=== PATIENT | male | born 1950 | race Caucasian/White ===

== ENCOUNTER → 2017-05-19 | Outpatient (CLI) | payer OTHER ==
--- NOTE | 2017-05-19 17:06 | REP ---
Chest two views HISTORY: Heart failure Comparison: None The lungs are clear. The heart is normal in size. The pulmonary vasculature is normal in appearance. The bony structure is intact. IMPRESSION: No acute disease. Signed by Jeremy Díaz MD 05/19/2017 04:58 P
== END ==
LOC: M LAB 16:15
PROVIDERS: ATTEND Internal Medicine Cardiovascular Disease
DX: I50.9 Heart failure, unspecified (principal); R06.02 Shortness of breath

== ENCOUNTER → 2017-06-02 | Outpatient (CLI) | payer OTHER ==
[2017-06-02 09:34] LABS: ALBUMIN 3.8 GM/DL (3.2-5.2); ANION GAP 11 MEQ/L (8-16); BLOOD UREA NITROGEN 18 MG/DL (7-18); CALCIUM LEVEL 9.5 MG/DL (8.8-10.2); CARBON DIOXIDE LEVEL 29 MEQ/L (21-32); CHLORIDE LEVEL 102 MEQ/L (98-107); CREATININE FOR GFR 1.12 MG/DL (0.70-1.30); GLOMERULAR FILTRATION RATE > 60.0 (>49); GLUCOSE, FASTING 109 MG/DL (80-110); MAGNESIUM LEVEL 2.2 MG/DL (1.8-2.4); PHOSPHORUS LEVEL 2.3 MG/DL (2.5-4.9); SODIUM LEVEL 142 MEQ/L (136-145)
== END ==
LOC: M LAB 08:06
PROVIDERS: ATTEND Internal Medicine Cardiovascular Disease
DX: I50.9 Heart failure, unspecified (principal)

== ENCOUNTER → 2017-06-15 | Outpatient (CLI) | payer OTHER ==
[2017-06-15 13:09] LABS: ALBUMIN 3.8 GM/DL (3.2-5.2); ANION GAP 7 MEQ/L (8-16); BLOOD UREA NITROGEN 21 MG/DL (7-18); CALCIUM LEVEL 9.4 MG/DL (8.8-10.2); CARBON DIOXIDE LEVEL 32 MEQ/L (21-32); CHLORIDE LEVEL 103 MEQ/L (98-107); CREATININE FOR GFR 1.27 MG/DL (0.70-1.30); GLOMERULAR FILTRATION RATE > 60.0 (>49); GLUCOSE, FASTING 98 MG/DL (80-110); PHOSPHORUS LEVEL 2.4 MG/DL (2.5-4.9); POTASSIUM SERUM 4.4 MEQ/L (3.5-5.1); SODIUM LEVEL 142 MEQ/L (136-145)
== END ==
LOC: M LAB 11:58
PROVIDERS: ATTEND Internal Medicine Cardiovascular Disease
DX: I11.9 Hypertensive heart disease without heart failure (principal)

== ENCOUNTER → 2017-10-06 | Outpatient (CLI) | payer OTHER ==
--- NOTE | 2017-10-09 15:16 | SLEEPCENT ---
DATE OF PROCEDURE: 10/06/2017 REFERRING PHYSICIAN: Joy Grimes Nocturnal polysomnography was performed for evaluation of sleep physiology in this patient with a history of excessive somnolence and abnormal nocturnal oximetry. 7 hours and 34 minutes of data were reviewed. There were 175 minutes of sleep identified. Sleep latency was prolonged at 52 minutes. Rapid eye movement (REM) latency was prolonged at 196 minutes. Sleep architecture did improve late in the study, but there were only two REM cycles with prolonged periods of wakefulness resulting in reduced sleep efficiency of 39.1%. The patient's electrocardiogram showed a baseline supraventricular rhythm with an average heart rate of 64 beats per minute. Rate ranged 60 to 80 beats per minute. EEG showed fairly normal waveforms for awake and sleep. There were 161 respiratory events identified of 10 seconds in duration or greater for an apnea/hypopnea index of 55. Having clearly established the presence of sleep apnea syndrome early in the test, the study was stopped shortly before midnight for the application of pressure therapy. The patient was fit with a ResMed Quattro full face mask of medium size. 4 cm of water pressure were applied to the circuit and the lights were extinguished. Throughout the remaining hours of testing, pressure titration was attempted. The patient had difficulty in tolerating the mask. Persistence of desaturations resulted in addition to supplemental oxygen and an ideal pressure was not achieved during the test. Best sleep was seen at a CPAP pressure of +12 with liters of oxygen bled through the system. IMPRESSION: Severe obstructive sleep apnea syndrome (G47.33). Apnea/hypopnea index 55. RECOMMENDATION: Initiation of pressure therapy at an initial pressure of 12 with 2 liters of oxygen bled through the system is recommended. However, an optimal pressure was not able to be identified during this testing and a full night retitration is strongly suggested.
== END ==
LOC: M SLEEP 19:22
PROVIDERS: ATTEND Nurse Practitioner Adult Health
DX: G47.30 Sleep apnea, unspecified (principal)

== ENCOUNTER → 2017-11-26 | Outpatient (CLI) | payer MEDICARE ==
[2017-11-26 11:34] LABS: HEMATOCRIT 43.1 % (42.0-52.0); HEMOGLOBIN 14.8 g/dl (14.0-18.0); MEAN CORPUSCULAR HEMOGLOBIN 31.7 pg (27.0-33.0); MEAN CORPUSCULAR HGB CONC 34.3 g/dl (32.0-36.5); MEAN CORPUSCULAR VOLUME 92.3 fl (80.0-96.0); PLATELET COUNT, AUTOMATED 231 10^3/uL (150-450); RED BLOOD COUNT 4.67 10^6/uL (4.30-6.10); RED CELL DISTRIBUTION WIDTH 12.1 % (11.5-14.5); WHITE BLOOD COUNT 8.4 10^3/uL (4.0-10.0)
[2017-11-26 11:55] LABS: ALBUMIN 3.9 GM/DL (3.2-5.2); ALBUMIN/GLOBULIN RATIO 1.26 (1.00-1.93); ALKALINE PHOSPHATASE 85 U/L (45-117); ALT/SGPT 65 U/L (12-78); ANION GAP 8 MEQ/L (8-16); AST/SGOT 25 U/L (7-37); BILIRUBIN,TOTAL 0.5 MG/DL (0.2-1.0); BLOOD UREA NITROGEN 13 MG/DL (7-18); CALCIUM LEVEL 8.8 MG/DL (8.8-10.2); CARBON DIOXIDE LEVEL 31 MEQ/L (21-32); CHLORIDE LEVEL 102 MEQ/L (98-107); CREATININE FOR GFR 1.58 MG/DL (0.70-1.30); GLOMERULAR FILTRATION RATE 47.1 (>49); GLUCOSE, FASTING 104 MG/DL (70-100); POTASSIUM SERUM 3.8 MEQ/L (3.5-5.1); SODIUM LEVEL 141 MEQ/L (136-145)
== END ==
LOC: M LAB 10:26
DX: I48.0 Paroxysmal atrial fibrillation (principal)
CPT/HCPCS: 71046

== ENCOUNTER → 2017-12-07 | Outpatient (CLI) | payer MEDICARE ==
[2017-12-07 10:57] LABS: HEMATOCRIT 41.8 % (42.0-52.0); HEMOGLOBIN 14.5 g/dl (14.0-18.0); MEAN CORPUSCULAR HEMOGLOBIN 31.8 pg (27.0-33.0); MEAN CORPUSCULAR HGB CONC 34.7 g/dl (32.0-36.5); MEAN CORPUSCULAR VOLUME 91.7 fl (80.0-96.0); PLATELET COUNT, AUTOMATED 220 10^3/uL (150-450); RED BLOOD COUNT 4.56 10^6/uL (4.30-6.10); WHITE BLOOD COUNT 8.2 10^3/uL (4.0-10.0)
[2017-12-07 11:28] LABS: ALBUMIN 3.9 GM/DL (3.2-5.2); ALBUMIN/GLOBULIN RATIO 1.26 (1.00-1.93); ALKALINE PHOSPHATASE 83 U/L (45-117); ALT/SGPT 68 U/L (12-78); ANION GAP 9 MEQ/L (8-16); AST/SGOT 30 U/L (7-37); BILIRUBIN,TOTAL 0.6 MG/DL (0.2-1.0); BLOOD UREA NITROGEN 11 MG/DL (7-18); CALCIUM LEVEL 9.2 MG/DL (8.8-10.2); CARBON DIOXIDE LEVEL 30 MEQ/L (21-32); CHLORIDE LEVEL 102 MEQ/L (98-107); CREATININE FOR GFR 1.43 MG/DL (0.70-1.30); GLOMERULAR FILTRATION RATE 52.8 (>49); GLUCOSE, FASTING 92 MG/DL (70-100); POTASSIUM SERUM 3.8 MEQ/L (3.5-5.1); SODIUM LEVEL 141 MEQ/L (136-145)
== END ==
LOC: M LAB 09:43
DX: I48.0 Paroxysmal atrial fibrillation (principal)

== ENCOUNTER 2017-12-08 06:55 | Inpatient (IN) | payer MEDICARE ==
[2017-12-08] MEDS: NS 1,000 ML IV ×3 (07:15→22:27)
[2017-12-08] MEDS ORDERED: LIDOCAINE 2% INJ 100 MG/5 ML SDV (FOR ANES.) As Ordered (07:17)
[2017-12-08] MEDS ORDERED: PROPOFOL 200 MG/20 ML VIAL As Ordered (07:17)
[2017-12-08] MEDS ORDERED: ISOVUE-370 76% 100ML VIAL (Q9967) As Ordered (09:40)
[2017-12-08] MEDS ORDERED: BISACODYL 10 MG SUPP PR (11:15)
[2017-12-08] MEDS ORDERED: ONDANSETRON 4MG/2ML VIAL (J2405) IV (11:15)
[2017-12-08] MEDS ORDERED: ACETAMINOPHEN 650 MG SUPP PR (11:15)
[2017-12-08 12:50] LABS: BASO # 0.1 10^3/uL (0.0-0.2); BASO % 0.7 % (0.0-1.0); EOS # 0.1 10^3/uL (0.0-0.50); EOS % 1.6 % (0.0-3.0); HEMATOCRIT 40.4 % (42.0-52.0); HEMOGLOBIN 13.8 g/dl (14.0-18.0); IMMATURE GRANULOCYTE # 0.1 10^3/uL (0-0); IMMATURE GRANULOCYTE % 0.7 % (0-0); LYMPH # 1.1 10^3/uL (1.5-4.5); LYMPH % 15.9 % (24.0-44.0); MEAN CORPUSCULAR HEMOGLOBIN 31.9 pg (27.0-33.0); MEAN CORPUSCULAR HGB CONC 34.2 g/dl (32.0-36.5); MEAN CORPUSCULAR VOLUME 93.3 fl (80.0-96.0); MONO # 0.7 10^3/uL (0.0-0.8); MONO % 9.4 % (0.0-5.0); NEUTROPHILS # 4.9 10^3/uL (1.8-7.7); NEUTROPHILS % 71.7 % (36.0-66.0); PLATELET COUNT, AUTOMATED 197 10^3/uL (150-450); RED BLOOD COUNT 4.33 10^6/uL (4.30-6.10); WHITE BLOOD COUNT 6.9 10^3/uL (4.0-10.0)
[2017-12-08 13:18] LABS: ALBUMIN 3.8 GM/DL (3.2-5.2); ALBUMIN/GLOBULIN RATIO 1.27 (1.00-1.93); ALKALINE PHOSPHATASE 73 U/L (45-117); ALT/SGPT 63 U/L (12-78); ANION GAP 5 MEQ/L (8-16); AST/SGOT 28 U/L (7-37); BILIRUBIN,TOTAL 0.5 MG/DL (0.2-1.0); BLOOD UREA NITROGEN 10 MG/DL (7-18); CALCIUM LEVEL 8.7 MG/DL (8.8-10.2); CARBON DIOXIDE LEVEL 31 MEQ/L (21-32); CHLORIDE LEVEL 104 MEQ/L (98-107); CREATININE FOR GFR 1.43 MG/DL (0.70-1.30); FREE THYROXINE INDEX 5.5 % (1.4-3.8); GLOMERULAR FILTRATION RATE 52.8 (>49); GLUCOSE, FASTING 90 MG/DL (70-100); POTASSIUM SERUM 3.9 MEQ/L (3.5-5.1); SODIUM LEVEL 140 MEQ/L (136-145); T UPTAKE 38 % (33-40); THYROXINE (T4) 14.5 UG/DL (4.5-12.0); TOTAL PROTEIN 6.8 GM/DL (6.4-8.2)
[2017-12-08] MEDS: D5W/0.45% SODIUM CHLORIDE 1,000 ML IV (13:30)
[2017-12-08] MEDS ORDERED: GLUCOSE 4 GM CHEW TABLET PO (13:30)
[2017-12-08] MEDS ORDERED: GLUCAGON FOR INJ 1 MG VIAL (J1610) SC (13:30)
[2017-12-08] MEDS ORDERED: DEXTROSE 50% 50 ML SYRINGE IV (13:30)
[2017-12-08 13:38] LABS: PSA SCREENING 8.36 NG/ML (< 4.0)
[2017-12-08] MEDS: GASTROGRAFIN SOLUTION 30ML PO ×2 (14:30→14:43)
[2017-12-08] MEDS: HEPARIN SOD (PORCINE) 5000 UNITS/ML VIAL SQ ×2 (14:43→20:55)
[2017-12-08 15:07] LABS: ALPHA FETOPROTEIN TUMOR QUANT 2.4 NG/ML (<8.1); CARCINOEMBRYONIC ANTIGEN 2.1 NG/ML (<2.5)
[2017-12-08 15:37] LABS: CA19-9 TUMOR MARKER,CARBOHYDRA 55.9 U/ML (<35.0)
[2017-12-08 16:41] LABS: ANION GAP 7 MEQ/L (8-16); BLOOD UREA NITROGEN 10 MG/DL (7-18); CALCIUM LEVEL 8.8 MG/DL (8.8-10.2); CARBON DIOXIDE LEVEL 30 MEQ/L (21-32); CHLORIDE LEVEL 104 MEQ/L (98-107); CREATININE FOR GFR 1.37 MG/DL (0.70-1.30); GLOMERULAR FILTRATION RATE 55.5 (>49); GLUCOSE, FASTING 85 MG/DL (70-100); POTASSIUM SERUM 3.4 MEQ/L (3.5-5.1); SODIUM LEVEL 141 MEQ/L (136-145)
[2017-12-08] MEDS: PANTOPRAZOLE 40MG INJ (PROTONIX) (C9113) IV (17:48)
[2017-12-08] MEDS: METOPROLOL TART 50 MG TAB PO (20:48)
[2017-12-09] MEDS: HEPARIN SOD (PORCINE) 5000 UNITS/ML VIAL SQ ×3 (06:00→22:00)
[2017-12-09 06:18] LABS: BASO % 0.6 % (0.0-1.0); EOS # 0.2 10^3/uL (0.0-0.50); EOS % 2.2 % (0.0-3.0); HEMOGLOBIN 14.6 g/dl (14.0-18.0); IMMATURE GRANULOCYTE % 0.4 % (0-0); LYMPH # 1.2 10^3/uL (1.5-4.5); LYMPH % 17.7 % (24.0-44.0); MEAN CORPUSCULAR HEMOGLOBIN 32.1 pg (27.0-33.0); MEAN CORPUSCULAR HGB CONC 34.8 g/dl (32.0-36.5); MEAN CORPUSCULAR VOLUME 92.3 fl (80.0-96.0); MONO # 0.5 10^3/uL (0.0-0.8); MONO % 7.8 % (0.0-5.0); NEUTROPHILS % 71.3 % (36.0-66.0); PLATELET COUNT, AUTOMATED 218 10^3/uL (150-450); RED BLOOD COUNT 4.55 10^6/uL (4.30-6.10); RED CELL DISTRIBUTION WIDTH 12.1 % (11.5-14.5)
[2017-12-09 06:29] LABS: INR 1.04; PROTHROMBIN TIME 13.7 SECONDS (12.4-14.5)
[2017-12-09 06:30] LABS: PARTIAL THROMBOPLASTIN TIME 27.2 SECONDS (26.8-37.9)
[2017-12-09 06:49] LABS: ALBUMIN 3.7 GM/DL (3.2-5.2); ALBUMIN/GLOBULIN RATIO 1.09 (1.00-1.93); ALKALINE PHOSPHATASE 78 U/L (45-117); ALT/SGPT 60 U/L (12-78); ANION GAP 9 MEQ/L (8-16); AST/SGOT 27 U/L (7-37); BILIRUBIN,TOTAL 0.6 MG/DL (0.2-1.0); BLOOD UREA NITROGEN 10 MG/DL (7-18); CARBON DIOXIDE LEVEL 28 MEQ/L (21-32); CHLORIDE LEVEL 107 MEQ/L (98-107); CREATININE FOR GFR 1.27 MG/DL (0.70-1.30); FREE THYROXINE INDEX 3.9 % (1.4-3.8); GLOMERULAR FILTRATION RATE > 60.0 (>49); GLUCOSE, FASTING 85 MG/DL (70-100); MAGNESIUM LEVEL 2.1 MG/DL (1.8-2.4); POTASSIUM SERUM 3.7 MEQ/L (3.5-5.1); SODIUM LEVEL 144 MEQ/L (136-145); T UPTAKE 32 % (33-40); THYROXINE (T4) 12.2 UG/DL (4.5-12.0); TOTAL PROTEIN 7.1 GM/DL (6.4-8.2)
[2017-12-09] MEDS: NITROGLYCERIN 0.4 MG SUBL TABLET SL (06:53)
[2017-12-09 07:16] LABS: CPK CREATINE PHOSPHOKINASE 137 U/L (39-308); MB/CK RELATIVE INDEX 0.72 (< OR =4); NT-PRO BNP 357 PG/ML (<125); TROPONIN I < 0.02 NG/ML (< 0.10)
[2017-12-09] MEDS: LEVOTHYROXINE 100 MCG (0.1MG) VIAL IV (09:30)
[2017-12-09] MEDS: AMIODARONE 200 MG TAB (PACERONE) PO (09:30)
[2017-12-09] MEDS: METOPROLOL TART 50 MG TAB PO ×2 (09:31→22:11)
[2017-12-09] MEDS ORDERED: E-Z-PAQUE 96% w/w SUSP 176GM BTL As Ordered (12:12)
[2017-12-09] MEDS: LIDOCAINE W/EPINEPHRINE 1% 20ML VIAL As Ordered (13:35)
[2017-12-09] MEDS ORDERED: ETOMIDATE INJ 20MG/10ML VIAL As Ordered (13:36)
[2017-12-09] MEDS ORDERED: MIDAZOLAM INJ 2 MG/2 ML VIAL (J2250) As Ordered (13:37)
[2017-12-09] MEDS ORDERED: ROCURONIUM BROMIDE 50 MG/5 ML VIAL As Ordered (13:37)
[2017-12-09] MEDS ORDERED: fentaNYL 100 MCG/2 ML INJECTION (J3010) As Ordered (13:37)
[2017-12-09] MEDS ORDERED: PROPOFOL 200 MG/20 ML VIAL As Ordered (13:37)
[2017-12-09] MEDS ORDERED: LIDOCAINE 2% INJ 100 MG/5 ML SDV (FOR ANES.) As Ordered (13:37)
[2017-12-09] MEDS ORDERED: PHENYLephrine HCL 500 MCG/5 ML (100MCG/ML) SYRINGE (J2370) As Ordered (13:38)
[2017-12-09] MEDS ORDERED: ONDANSETRON 4MG/2ML VIAL (J2405) IV (15:00)
[2017-12-09] MEDS: LR 1,000 ML IV (15:00)
[2017-12-09] MEDS ORDERED: fentaNYL 100 MCG/2 ML INJECTION (J3010) IV (15:00)
[2017-12-09] MEDS: PANTOPRAZOLE 40MG INJ (PROTONIX) (C9113) IV (18:27)
[2017-12-09] MEDS: MORPHINE 2 MG/ML 1ML SYRINGE (J2270) IV (22:28)
[2017-12-10] MEDS: HEPARIN SOD (PORCINE) 5000 UNITS/ML VIAL SQ ×3 (06:00→22:00)
[2017-12-10 06:47] LABS: BASO % 0.4 % (0.0-1.0); EOS # 0.1 10^3/uL (0.0-0.50); EOS % 1.2 % (0.0-3.0); HEMATOCRIT 38.7 % (42.0-52.0); HEMOGLOBIN 13.1 g/dl (14.0-18.0); IMMATURE GRANULOCYTE % 0.4 % (0-3.0); LYMPH # 0.9 10^3/uL (1.5-4.5); LYMPH % 9.9 % (24.0-44.0); MEAN CORPUSCULAR HEMOGLOBIN 31.6 pg (27.0-33.0); MEAN CORPUSCULAR HGB CONC 33.9 g/dl (32.0-36.5); MEAN CORPUSCULAR VOLUME 93.5 fl (80.0-96.0); MONO # 0.8 10^3/uL (0.0-0.8); MONO % 8.8 % (0.0-5.0); NEUTROPHILS # 7.1 10^3/uL (1.8-7.7); NEUTROPHILS % 79.3 % (36.0-66.0); PLATELET COUNT, AUTOMATED 196 10^3/uL (150-450); RED BLOOD COUNT 4.14 10^6/uL (4.30-6.10); RED CELL DISTRIBUTION WIDTH 12.1 % (11.5-14.5); WHITE BLOOD COUNT 8.9 10^3/uL (4.0-10.0)
[2017-12-10 07:05] LABS: ANION GAP 7 MEQ/L (8-16); BLOOD UREA NITROGEN 10 MG/DL (7-18); CARBON DIOXIDE LEVEL 30 MEQ/L (21-32); CHLORIDE LEVEL 107 MEQ/L (98-107); CREATININE FOR GFR 1.06 MG/DL (0.70-1.30); GLOMERULAR FILTRATION RATE > 60.0 (>49); GLUCOSE, FASTING 86 MG/DL (70-100); POTASSIUM SERUM 3.7 MEQ/L (3.5-5.1); SODIUM LEVEL 144 MEQ/L (136-145)
[2017-12-10] MEDS ORDERED: E-Z-HD 98% w/w 340GM SUSP BTL As Ordered (08:31)
[2017-12-10] MEDS ORDERED: E-Z-PAQUE 96% w/w SUSP 176GM BTL As Ordered (08:31)
[2017-12-10] MEDS ORDERED: E-Z-GAS II EFFERVESCENT PACKET (SODIUM BICARB./CITRIC ACID/SIMETHICONE) As Ordered (08:31)
[2017-12-10] MEDS: PREVNAR 13 VACCINE SYRINGE (CPT CODE:90670) IM (09:00)
[2017-12-10] MEDS: AMIODARONE 200 MG TAB (PACERONE) PO (10:49)
[2017-12-10] MEDS: METOPROLOL TART 50 MG TAB PO ×2 (10:49→21:00)
[2017-12-10] MEDS: LEVOTHYROXINE 100 MCG (0.1MG) VIAL IV (10:50)
[2017-12-10] MEDS: FUROSEMIDE 40 MG TAB PO (12:10)
[2017-12-10] MEDS: amLODIPine 10 MG TAB PO (12:10)
[2017-12-10] MEDS: PANTOPRAZOLE 40MG INJ (PROTONIX) (C9113) IV (18:13)
[2017-12-11] MEDS: LEVOTHYROXINE 37.5MCG PER 1/2TAB (0.0375MG) PO (06:00)
[2017-12-11] MEDS: HEPARIN SOD (PORCINE) 5000 UNITS/ML VIAL SQ (06:00)
[2017-12-11] MEDS ORDERED: MORPHINE 4 MG/ML 1ML VIAL (J2270) IV (08:15)
[2017-12-11] MEDS: FUROSEMIDE 40 MG TAB PO (09:55)
[2017-12-11] MEDS: AMIODARONE 200 MG TAB (PACERONE) PO (09:55)
[2017-12-11] MEDS: amLODIPine 10 MG TAB PO (09:56)
[2017-12-11] MEDS: METOPROLOL TART 50 MG TAB PO ×2 (09:56→20:42)
[2017-12-11] MEDS ORDERED: PROPOFOL 200 MG/20 ML VIAL As Ordered ×3 (12:21→13:01)
[2017-12-11] MEDS ORDERED: LIDOCAINE 2% INJ 100 MG/5 ML SDV (FOR ANES.) As Ordered (12:21)
[2017-12-11] MEDS ORDERED: fentaNYL 100 MCG/2 ML INJECTION (J3010) As Ordered (12:21)
[2017-12-11] MEDS ORDERED: ePHEDrine INJ 50 MG/ML VIAL As Ordered (12:29)
[2017-12-11] MEDS: ISOVUE-300 61% 50ML VIAL (Q9967) As Ordered (12:30)
[2017-12-11] MEDS ORDERED: fentaNYL 100 MCG/2 ML INJECTION (J3010) IV (14:00)
[2017-12-11] MEDS ORDERED: ONDANSETRON 4MG/2ML VIAL (J2405) IV (14:00)
[2017-12-11] MEDS: LR 1,000 ML IV (14:00)
[2017-12-11] MEDS: PANTOPRAZOLE 40MG INJ (PROTONIX) (C9113) IV (17:40)
[2017-12-12] MEDS: LEVOTHYROXINE 37.5MCG PER 1/2TAB (0.0375MG) PO (06:10)
[2017-12-12] MEDS: FUROSEMIDE 40 MG TAB PO (09:25)
[2017-12-12] MEDS: amLODIPine 10 MG TAB PO (09:25)
[2017-12-12] MEDS: METOPROLOL TART 50 MG TAB PO (09:26)
[2017-12-12] MEDS: AMIODARONE 200 MG TAB (PACERONE) PO (09:27)
[2017-12-12] MEDS: APIXABAN 5 MG TAB (ELIQUIS) PO (14:44)
[2017-12-12] MEDS: PERCOCET 5MG/325MG TAB PO (14:45)
[2017-12-12] MEDS ORDERED: APIXABAN 5 MG TAB (ELIQUIS) PO (21:00)
== END 2017-12-12 16:16 | disposition home or self-care (01) | DRG 375 ==
LOC: M OPP 06:55 → M MSPAV 12:00 → M OPP 11:04 → M MSPAV 11:05
PROC: 0DB28ZX Excision of Middle Esophagus, Via Natural or Artificial Opening Endoscopic, Diagnostic (ICD-10-PCS; principal; 2017-12-08 07:30)
PROC: 0DH63UZ Insertion of Feeding Device into Stomach, Percutaneous Approach (ICD-10-PCS; 2017-12-08 07:45)
PROC: 0DB28ZX Excision of Middle Esophagus, Via Natural or Artificial Opening Endoscopic, Diagnostic (ICD-10-PCS; 2017-12-08 07:45)
DX: C15.4 Malignant neoplasm of middle third of esophagus (principal); I13.0 Hypertensive heart and chronic kidney disease with heart failure and stage 1 through stage 4 chronic kidney disease, or unspecified chronic kidney disease; Z68.41 Body mass index [BMI] 40.0-44.9, adult; K21.9 Gastro-esophageal reflux disease without esophagitis; I48.0 Paroxysmal atrial fibrillation; J44.9 Chronic obstructive pulmonary disease, unspecified; E03.9 Hypothyroidism, unspecified; E78.5 Hyperlipidemia, unspecified; I50.9 Heart failure, unspecified; M50.10 Cervical disc disorder with radiculopathy, unspecified cervical region; R63.4 Abnormal weight loss; K22.2 Esophageal obstruction; G47.33 Obstructive sleep apnea (adult) (pediatric); R13.10 Dysphagia, unspecified; R91.8 Other nonspecific abnormal finding of lung field; N18.3 Chronic kidney disease, stage 3 (moderate); E66.9 Obesity, unspecified; Z79.01 Long term (current) use of anticoagulants; Z79.899 Other long term (current) drug therapy; Z87.891 Personal history of nicotine dependence; Z88.8 Allergy status to other drugs, medicaments and biological substances; Z91.018 Allergy to other foods

== ENCOUNTER → 2017-12-18 | Outpatient (CLI) | payer MEDICARE ==
[2017-12-18 10:12] LABS: INR 1.46; PROTHROMBIN TIME 18.1 SECONDS (12.4-14.5)
== END ==
LOC: M LAB 09:21
DX: I48.0 Paroxysmal atrial fibrillation (principal)
CPT/HCPCS: 85610

== ENCOUNTER → 2017-12-23 | Outpatient (CLI) | payer MEDICARE ==
[2017-12-23 13:05] LABS: PROTHROMBIN TIME 30.7 SECONDS (12.4-14.5)
== END ==
LOC: M LAB 12:12
DX: Z79.01 Long term (current) use of anticoagulants (principal); I48.0 Paroxysmal atrial fibrillation
CPT/HCPCS: 85610

== ENCOUNTER → 2017-12-30 | Outpatient (CLI) | payer MEDICARE | LOC: M PLARAD 10:19 | DX: R91.8 Other nonspecific abnormal finding of lung field (principal) | CPT/HCPCS: 78815 ==

== ENCOUNTER → 2017-12-31 | Outpatient (REF) | payer MEDICARE ==
[2017-12-31 14:11] LABS: PROTHROMBIN TIME 56.4 SECONDS (12.4-14.5)
[2017-12-31 14:12] LABS: PARTIAL THROMBOPLASTIN TIME 111.9 SECONDS (26.8-37.9)
[2017-12-31 14:22] LABS: INR 5.91
== END ==
LOC: M LAB REF 13:21
DX: C15.9 Malignant neoplasm of esophagus, unspecified (principal); R79.1 Abnormal coagulation profile
CPT/HCPCS: 85610

== ENCOUNTER → 2018-01-04 | Outpatient (CLI) | payer MEDICARE ==
[2018-01-04 13:31] LABS: INR 4.56; PROTHROMBIN TIME 45.6 SECONDS (12.4-14.5)
== END ==
LOC: M LAB 12:36
DX: I48.0 Paroxysmal atrial fibrillation (principal); Z51.81 Encounter for therapeutic drug level monitoring; Z79.01 Long term (current) use of anticoagulants

== ENCOUNTER → 2018-01-04 | Outpatient (CLI) | payer MEDICARE ==
[2018-01-04 13:22] LABS: BASO # 0.1 10^3/uL (0.0-0.2); BASO % 0.6 % (0.0-1.0); EOS # 0.2 10^3/uL (0.0-0.50); EOS % 1.8 % (0.0-3.0); HEMATOCRIT 40.3 % (42.0-52.0); IMMATURE GRANULOCYTE % 0.7 % (0-3.0); LYMPH # 1.3 10^3/uL (1.5-4.5); LYMPH % 12.8 % (24.0-44.0); MEAN CORPUSCULAR HEMOGLOBIN 31.4 pg (27.0-33.0); MEAN CORPUSCULAR HGB CONC 34.7 g/dl (32.0-36.5); MEAN CORPUSCULAR VOLUME 90.4 fl (80.0-96.0); MONO # 0.9 10^3/uL (0.0-0.8); MONO % 8.6 % (0.0-5.0); NEUTROPHILS # 7.6 10^3/uL (1.8-7.7); NEUTROPHILS % 75.5 % (36.0-66.0); PLATELET COUNT, AUTOMATED 202 10^3/uL (150-450); RED BLOOD COUNT 4.46 10^6/uL (4.30-6.10); RED CELL DISTRIBUTION WIDTH 12.1 % (11.5-14.5); WHITE BLOOD COUNT 10.1 10^3/uL (4.0-10.0)
[2018-01-04 13:32] LABS: INR 4.44; PROTHROMBIN TIME 44.7 SECONDS (12.4-14.5)
[2018-01-04 13:46] LABS: PARTIAL THROMBOPLASTIN TIME 116.4 SECONDS (26.8-37.9)
[2018-01-04 13:50] LABS: ANION GAP 7 MEQ/L (8-16); BLOOD UREA NITROGEN 21 MG/DL (7-18); CALCIUM LEVEL 8.7 MG/DL (8.8-10.2); CARBON DIOXIDE LEVEL 33 MEQ/L (21-32); CHLORIDE LEVEL 101 MEQ/L (98-107); CREATININE FOR GFR 1.56 MG/DL (0.70-1.30); GLOMERULAR FILTRATION RATE 47.8 (>49); GLUCOSE, FASTING 94 MG/DL (70-100); POTASSIUM SERUM 3.7 MEQ/L (3.5-5.1); SODIUM LEVEL 141 MEQ/L (136-145)
== END ==
LOC: M LAB 12:43
DX: C15.4 Malignant neoplasm of middle third of esophagus (principal); R63.4 Abnormal weight loss; I48.0 Paroxysmal atrial fibrillation; Z51.81 Encounter for therapeutic drug level monitoring; Z79.01 Long term (current) use of anticoagulants
CPT/HCPCS: 80048

== ENCOUNTER → 2018-01-07 | Outpatient (CLI) | payer MEDICARE ==
[~2018-01-07] MED LIST: LIDOCAINE 2% MDV 20 ML VIAL As Ordered; MIDAZOLAM INJ 2 MG/2 ML VIAL (J2250) As Ordered; ceFAZolin 1GM INJ (J0690 PER 500MG) As Ordered; fentaNYL 100 MCG/2 ML INJECTION (J3010) As Ordered
== END | disposition home or self-care (01) ==
LOC: M IRPRO 08:19
DX: C15.9 Malignant neoplasm of esophagus, unspecified (principal)
CPT/HCPCS: 36561

== ENCOUNTER → 2018-01-07 | Outpatient (CLI) | payer MEDICARE ==
[2018-01-07 09:00] LABS: PROTHROMBIN TIME 28.9 SECONDS (12.4-14.5)
== END ==
LOC: M LAB 08:04
DX: I48.0 Paroxysmal atrial fibrillation (principal)

== ENCOUNTER → 2018-01-11 | Outpatient (CLI) | payer MEDICARE ==
[2018-01-11 13:34] LABS: INR 1.54; PROTHROMBIN TIME 18.9 SECONDS (12.4-14.5)
== END ==
LOC: M LAB 12:34
DX: I48.0 Paroxysmal atrial fibrillation (principal)
CPT/HCPCS: 85610

== ENCOUNTER → 2018-01-12 | Outpatient (CLI) | payer MEDICARE ==
[~2018-01-12] MED LIST changes: +LIDOCAINE 1% MDV 20ML VIAL As Ordered; -LIDOCAINE 2% MDV 20 ML VIAL As Ordered; -MIDAZOLAM INJ 2 MG/2 ML VIAL (J2250) As Ordered; -ceFAZolin 1GM INJ (J0690 PER 500MG) As Ordered; -fentaNYL 100 MCG/2 ML INJECTION (J3010) As Ordered
== END ==
LOC: M RADPRO 10:18
DX: C15.9 Malignant neoplasm of esophagus, unspecified (principal)
CPT/HCPCS: 32405

== ENCOUNTER → 2018-01-20 | Outpatient (CLI) | payer MEDICARE ==
[2018-01-20 12:18] LABS: INR 2.78; PROTHROMBIN TIME 30.6 SECONDS (12.4-14.5)
== END ==
LOC: M LAB 11:47
DX: I48.0 Paroxysmal atrial fibrillation (principal); Z79.01 Long term (current) use of anticoagulants
CPT/HCPCS: 85610

== ENCOUNTER 2018-01-22 07:31 | Day surgery (SDC) | payer MEDICARE ==
[2018-01-22 08:15] LABS: BASO # 0.1 10^3/uL (0.0-0.2); BASO % 0.9 % (0.0-1.0); EOS # 0.1 10^3/uL (0.0-0.50); EOS % 2.2 % (0.0-3.0); HEMATOCRIT 40.8 % (42.0-52.0); IMMATURE GRANULOCYTE % 0.6 % (0-3.0); LYMPH # 1.3 10^3/uL (1.5-4.5); LYMPH % 20.5 % (24.0-44.0); MEAN CORPUSCULAR HEMOGLOBIN 31.3 pg (27.0-33.0); MEAN CORPUSCULAR HGB CONC 34.3 g/dl (32.0-36.5); MEAN CORPUSCULAR VOLUME 91.1 fl (80.0-96.0); MONO # 0.6 10^3/uL (0.0-0.8); MONO % 9.6 % (0.0-5.0); NEUTROPHILS # 4.2 10^3/uL (1.8-7.7); NEUTROPHILS % 66.2 % (36.0-66.0); PLATELET COUNT, AUTOMATED 252 10^3/uL (150-450); RED BLOOD COUNT 4.48 10^6/uL (4.30-6.10); RED CELL DISTRIBUTION WIDTH 12.8 % (11.5-14.5); WHITE BLOOD COUNT 6.4 10^3/uL (4.0-10.0)
[2018-01-22 08:26] LABS: INR 2.07
[2018-01-22 08:27] LABS: PARTIAL THROMBOPLASTIN TIME 46.1 SECONDS (26.8-37.9)
[2018-01-22] MEDS: NS 1,000 ML IV (08:30)
[2018-01-22 08:54] LABS: ALBUMIN 3.8 GM/DL (3.2-5.2); ALBUMIN/GLOBULIN RATIO 1.06 (1.00-1.93); ALKALINE PHOSPHATASE 106 U/L (45-117); ALT/SGPT 32 U/L (12-78); ANION GAP 10 MEQ/L (8-16); AST/SGOT 23 U/L (7-37); BILIRUBIN,TOTAL 0.6 MG/DL (0.2-1.0); BLOOD UREA NITROGEN 9 MG/DL (7-18); CALCIUM LEVEL 9.4 MG/DL (8.8-10.2); CARBON DIOXIDE LEVEL 31 MEQ/L (21-32); CHLORIDE LEVEL 104 MEQ/L (98-107); CREATININE FOR GFR 1.51 MG/DL (0.70-1.30); GLOMERULAR FILTRATION RATE 49.6 (>49); GLUCOSE, FASTING 99 MG/DL (70-100); POTASSIUM SERUM 3.9 MEQ/L (3.5-5.1); SODIUM LEVEL 145 MEQ/L (136-145); TOTAL PROTEIN 7.4 GM/DL (6.4-8.2)
== END 2018-01-22 10:03 | disposition home or self-care (01) ==
LOC: M OPP 07:31
DX: Z12.11 Encounter for screening for malignant neoplasm of colon (principal); D12.3 Benign neoplasm of transverse colon; K62.1 Rectal polyp; K64.8 Other hemorrhoids; I48.91 Unspecified atrial fibrillation; I11.0 Hypertensive heart disease with heart failure; I50.9 Heart failure, unspecified; E03.9 Hypothyroidism, unspecified; K21.9 Gastro-esophageal reflux disease without esophagitis; R12 Heartburn; R06.02 Shortness of breath; M19.90 Unspecified osteoarthritis, unspecified site; R91.8 Other nonspecific abnormal finding of lung field; G47.30 Sleep apnea, unspecified; R06.83 Snoring; Z85.01 Personal history of malignant neoplasm of esophagus; Z87.891 Personal history of nicotine dependence; Z91.018 Allergy to other foods; Z79.82 Long term (current) use of aspirin; Z79.899 Other long term (current) drug therapy; Z79.01 Long term (current) use of anticoagulants
CPT/HCPCS: 45385

== ENCOUNTER → 2018-01-28 | Outpatient (CLI) | payer MEDICARE | LOC: M CARPUL 08:12 | DX: C15.9 Malignant neoplasm of esophagus, unspecified (principal); Z79.899 Other long term (current) drug therapy; R94.31 Abnormal electrocardiogram [ECG] [EKG] | CPT/HCPCS: 93306 ==

== ENCOUNTER → 2018-02-15 | Outpatient (CLI) | payer MEDICARE ==
[2018-02-15 07:19] LABS: INR 4.23
== END ==
LOC: M LAB 06:44
DX: I48.0 Paroxysmal atrial fibrillation (principal)
CPT/HCPCS: 85610

== ENCOUNTER → 2018-02-18 | Outpatient (CLI) | payer MEDICARE ==
[2018-02-18 12:18] LABS: PROTHROMBIN TIME 23.3 SECONDS (12.4-14.5)
== END ==
LOC: M LAB 11:20
DX: Z51.81 Encounter for therapeutic drug level monitoring (principal); Z79.01 Long term (current) use of anticoagulants; I48.0 Paroxysmal atrial fibrillation
CPT/HCPCS: 85610

== ENCOUNTER → 2018-02-25 | Outpatient (CLI) | payer MEDICARE ==
[2018-02-25 11:50] LABS: INR 2.83
== END ==
LOC: M LAB 11:03
DX: I48.0 Paroxysmal atrial fibrillation (principal)
CPT/HCPCS: 85610

== ENCOUNTER → 2018-03-02 | Outpatient (CLI) | payer MEDICARE ==
[2018-03-02 09:39] LABS: PROTHROMBIN TIME 66.9 SECONDS (12.4-14.5)
== END ==
LOC: M LAB 08:24
DX: I48.0 Paroxysmal atrial fibrillation (principal)
CPT/HCPCS: 85610

== ENCOUNTER → 2018-03-04 | Outpatient (CLI) | payer MEDICARE ==
[2018-03-04 09:44] LABS: PROTHROMBIN TIME 52.3 SECONDS (12.4-14.5)
[2018-03-04 09:47] LABS: INR 5.38
== END ==
LOC: M LAB 08:45
DX: I48.0 Paroxysmal atrial fibrillation (principal); Z79.01 Long term (current) use of anticoagulants
CPT/HCPCS: 85610

== ENCOUNTER → 2018-03-05 | Outpatient (CLI) | payer MEDICARE ==
[2018-03-05 10:43] LABS: BASO % 0.3 % (0.0-1.0); EOS # 0.1 10^3/uL (0.0-0.50); EOS % 4.6 % (0.0-3.0); HEMATOCRIT 32.4 % (42.0-52.0); IMMATURE GRANULOCYTE % 0.3 % (0-3.0); MEAN CORPUSCULAR HEMOGLOBIN 32.1 pg (27.0-33.0); MEAN CORPUSCULAR VOLUME 94.5 fl (80.0-96.0); MONO # 0.4 10^3/uL (0.0-0.8); MONO % 13.5 % (0.0-5.0); NEUTROPHILS # 1.5 10^3/uL (1.8-7.7); NEUTROPHILS % 48.3 % (36.0-66.0); PLATELET COUNT, AUTOMATED 158 10^3/uL (150-450); RED BLOOD COUNT 3.43 10^6/uL (4.30-6.10); RED CELL DISTRIBUTION WIDTH 15.6 % (11.5-14.5)
[2018-03-05 11:16] LABS: ALBUMIN 3.8 GM/DL (3.2-5.2); ALBUMIN/GLOBULIN RATIO 1.23 (1.00-1.93); ALKALINE PHOSPHATASE 91 U/L (45-117); ALT/SGPT 35 U/L (12-78); ANION GAP 6 MEQ/L (8-16); AST/SGOT 20 U/L (7-37); BILIRUBIN,TOTAL 0.4 MG/DL (0.2-1.0); BLOOD UREA NITROGEN 14 MG/DL (7-18); CALCIUM LEVEL 9.1 MG/DL (8.8-10.2); CARBON DIOXIDE LEVEL 28 MEQ/L (21-32); CHLORIDE LEVEL 104 MEQ/L (98-107); CREATININE FOR GFR 1.49 MG/DL (0.70-1.30); GLOMERULAR FILTRATION RATE 50.4 (>49); GLUCOSE, FASTING 84 MG/DL (70-100); POTASSIUM SERUM 4.6 MEQ/L (3.5-5.1); SODIUM LEVEL 138 MEQ/L (136-145); TOTAL PROTEIN 6.9 GM/DL (6.4-8.2)
== END ==
LOC: M LAB 09:49
DX: I11.9 Hypertensive heart disease without heart failure (principal)
CPT/HCPCS: 84443

== ENCOUNTER 2018-03-22 11:20 | Emergency (ER) | payer MEDICARE ==
[2018-03-22 12:01] LABS: BASO % 0.2 % (0.0-1.0); EOS % 0.1 % (0.0-3.0); HEMATOCRIT 31.2 % (42.0-52.0); HEMOGLOBIN 11.1 g/dl (13.5-17.5); IMMATURE GRANULOCYTE % 0.9 % (0-3.0); LYMPH # 0.7 10^3/uL (1.5-4.5); LYMPH % 6.3 % (24.0-44.0); MEAN CORPUSCULAR HEMOGLOBIN 33.8 pg (27.0-33.0); MEAN CORPUSCULAR HGB CONC 35.6 g/dl (32.0-36.5); MEAN CORPUSCULAR VOLUME 95.1 fl (80.0-96.0); MONO # 0.5 10^3/uL (0.0-0.8); MONO % 4.6 % (0.0-5.0); NEUTROPHILS # 9.3 10^3/uL (1.8-7.7); NEUTROPHILS % 87.9 % (36.0-66.0); PLATELET COUNT, AUTOMATED 292 10^3/uL (150-450); RED BLOOD COUNT 3.28 10^6/uL (4.30-6.10); WHITE BLOOD COUNT 10.6 10^3/uL (4.0-10.0)
[2018-03-22 12:12] LABS: INR 0.88; PARTIAL THROMBOPLASTIN TIME 20.3 SECONDS (26.8-37.9)
[2018-03-22 12:26] LABS: LACTIC ACID SEPSIS PROTOCOL 1.8 MMOL/L (0.4-2.0)
[2018-03-22 12:33] LABS: ALBUMIN 4.1 GM/DL (3.2-5.2); ALBUMIN/GLOBULIN RATIO 1.32 (1.00-1.93); ALKALINE PHOSPHATASE 81 U/L (45-117); ALT/SGPT 41 U/L (12-78); AMYLASE 68 U/L (25-115); ANION GAP 8 MEQ/L (8-16); AST/SGOT 19 U/L (7-37); BILIRUBIN,DIRECT 0.2 MG/DL (0.0-0.2); BILIRUBIN,TOTAL 0.6 MG/DL (0.2-1.0); BLOOD UREA NITROGEN 34 MG/DL (7-18); CALCIUM LEVEL 9.4 MG/DL (8.8-10.2); CARBON DIOXIDE LEVEL 32 MEQ/L (21-32); CHLORIDE LEVEL 98 MEQ/L (98-107); CREATININE FOR GFR 1.65 MG/DL (0.70-1.30); GLOMERULAR FILTRATION RATE 44.8 (>49); GLUCOSE, FASTING 128 MG/DL (70-100); POTASSIUM SERUM 4.6 MEQ/L (3.5-5.1); SODIUM LEVEL 138 MEQ/L (136-145); TOTAL PROTEIN 7.2 GM/DL (6.4-8.2)
[2018-03-22] MEDS: NS 1,000 ML IV ×2 (13:15→15:23)
[2018-03-22 15:01] LABS: KETONE, URINE AUTO RFX NEGATIVE (NEGATIVE); LEUKOCYTE ESTERASE UR AUTO RFX NEGATIVE (NEGATIVE); NITRITE, URINE AUTO RFX NEGATIVE (NEGATIVE); RBC, URINE AUTO RFX 3 /HPF (0-3); SPECIFIC GRAVITY UR AUTO RFX 1.016 (1.002-1.035); SQUAM EPITHELIAL CELL UR AURFX 0 /HPF (0-6); WBC, URINE AUTO RFX 3 /HPF (0-3)
[2018-03-22] MEDS: SODIUM CHLORIDE 0.9% INJ 10 ML SYR IV (15:19)
== END 2018-03-22 17:19 | disposition home or self-care (01) ==
LOC: M ED 11:20
DX: K59.00 Constipation, unspecified (principal); R10.9 Unspecified abdominal pain; N28.9 Disorder of kidney and ureter, unspecified; R93.5 Abnormal findings on diagnostic imaging of other abdominal regions, including retroperitoneum; I11.0 Hypertensive heart disease with heart failure; I25.10 Atherosclerotic heart disease of native coronary artery without angina pectoris; I50.9 Heart failure, unspecified; G47.30 Sleep apnea, unspecified; K21.9 Gastro-esophageal reflux disease without esophagitis; C15.9 Malignant neoplasm of esophagus, unspecified; F17.200 Nicotine dependence, unspecified, uncomplicated; Z91.018 Allergy to other foods; Z79.899 Other long term (current) drug therapy; Z79.82 Long term (current) use of aspirin
CPT/HCPCS: 71046

== ENCOUNTER 2018-04-12 13:10 | Observation (INO) | payer MEDICARE ==
[2018-04-12 15:07] LABS: BASO % 0.2 % (0.0-1.0); EOS # 0.1 10^3/uL (0.0-0.50); EOS % 0.5 % (0.0-3.0); HEMATOCRIT 28.9 % (42.0-52.0); HEMOGLOBIN 10.2 g/dl (13.5-17.5); IMMATURE GRANULOCYTE % 0.9 % (0-3.0); LYMPH # 0.8 10^3/uL (1.5-4.5); LYMPH % 8.5 % (24.0-44.0); MEAN CORPUSCULAR HEMOGLOBIN 35.3 pg (27.0-33.0); MEAN CORPUSCULAR HGB CONC 35.3 g/dl (32.0-36.5); MONO # 0.5 10^3/uL (0.0-0.8); MONO % 5.5 % (0.0-5.0); NEUTROPHILS # 8.1 10^3/uL (1.8-7.7); NEUTROPHILS % 84.4 % (36.0-66.0); PLATELET COUNT, AUTOMATED 148 10^3/uL (150-450); RED BLOOD COUNT 2.89 10^6/uL (4.30-6.10); WHITE BLOOD COUNT 9.6 10^3/uL (4.0-10.0)
[2018-04-12 15:24] LABS: ANION GAP 9 MEQ/L (8-16); BLOOD UREA NITROGEN 40 MG/DL (7-18); CALCIUM LEVEL 8.8 MG/DL (8.8-10.2); CARBON DIOXIDE LEVEL 29 MEQ/L (21-32); CHLORIDE LEVEL 100 MEQ/L (98-107); CK-MB VALUE MASS < 1.0 NG/ML (<3.6); CPK CREATINE PHOSPHOKINASE 34 U/L (39-308); CREATININE FOR GFR 2.17 MG/DL (0.70-1.30); FREE T4 1.49 NG/DL (0.76-1.46); GLOMERULAR FILTRATION RATE 32.7 (>49); GLUCOSE, FASTING 98 MG/DL (70-100); MB/CK RELATIVE INDEX 2.94 (< OR =4); POTASSIUM SERUM 4.3 MEQ/L (3.5-5.1); SODIUM LEVEL 138 MEQ/L (136-145); TROPONIN I < 0.02 NG/ML (< 0.10)
[2018-04-12 15:35] LABS: INR 0.91; PROTHROMBIN TIME 12.3 SECONDS (12.4-14.5)
[2018-04-12 15:36] LABS: PARTIAL THROMBOPLASTIN TIME 20.1 SECONDS (26.8-37.9)
[2018-04-12] MEDS: NS 500 ML IV (16:04)
[2018-04-12] MEDS ORDERED: ONDANSETRON 4MG/2ML VIAL (J2405) IV (17:00)
[2018-04-12] MEDS ORDERED: ACETAMINOPHEN 500 MG TAB GT (17:00)
[2018-04-12] MEDS: NS 1,500 ML IV (17:30)
[2018-04-12 19:06] LABS: CK-MB VALUE MASS < 1.0 NG/ML (<3.6); CPK CREATINE PHOSPHOKINASE 47 U/L (39-308); MB/CK RELATIVE INDEX 2.12 (< OR =4); TROPONIN I < 0.02 NG/ML (< 0.10)
[2018-04-12] MEDS: PANTOPRAZOLE 40MG TAB (PROTONIX) PO (20:40)
[2018-04-12] MEDS: CYCLOBENZAPRINE 10 MG TAB GT (20:40)
[2018-04-12] MEDS: HEPARIN SOD (PORCINE) 5000 UNITS/ML VIAL SC (20:41)
[2018-04-12] MEDS ORDERED: METAL LOCK LOOP XX (22:19)
[2018-04-13 01:06] LABS: CK-MB VALUE MASS < 1.0 NG/ML (<3.6); CPK CREATINE PHOSPHOKINASE 30 U/L (39-308); MB/CK RELATIVE INDEX 3.33 (< OR =4); TROPONIN I < 0.02 NG/ML (< 0.10)
[2018-04-13] MEDS ORDERED: PILL CRUSHER/CUTTER 1 EACH XX (05:45)
[2018-04-13] MEDS: LEVOTHYROXINE 25MCG TABLET (0.025MG) GT (06:44)
[2018-04-13] MEDS: HEPARIN SOD (PORCINE) 5000 UNITS/ML VIAL SC ×3 (06:44→21:14)
[2018-04-13 08:37] LABS: HEMATOCRIT 25.9 % (42.0-52.0); HEMOGLOBIN 9.2 g/dl (13.5-17.5); MEAN CORPUSCULAR HEMOGLOBIN 35.4 pg (27.0-33.0); MEAN CORPUSCULAR HGB CONC 35.5 g/dl (32.0-36.5); MEAN CORPUSCULAR VOLUME 99.6 fl (80.0-96.0); PLATELET COUNT, AUTOMATED 133 10^3/uL (150-450); RED CELL DISTRIBUTION WIDTH 17.9 % (11.5-14.5); WHITE BLOOD COUNT 6.6 10^3/uL (4.0-10.0)
[2018-04-13] MEDS: PANTOPRAZOLE 40MG TAB (PROTONIX) PO ×2 (08:59→21:12)
[2018-04-13] MEDS: AMIODARONE 200 MG TAB (PACERONE) GT (08:59)
[2018-04-13] MEDS: MULTIVITAMINS/MINERALS THERAP 1 TAB GT (08:59)
[2018-04-13] MEDS: ASPIRIN 81 MG ENTERIC TAB GT (08:59)
[2018-04-13] MEDS: DOCUSATE SODIUM 100 MG CAP PO (08:59)
[2018-04-13 09:13] LABS: ALBUMIN 3.2 GM/DL (3.2-5.2); ALKALINE PHOSPHATASE 82 U/L (45-117); ALT/SGPT 28 U/L (12-78); ANION GAP 5 MEQ/L (8-16); AST/SGOT 14 U/L (7-37); BILIRUBIN,TOTAL 0.5 MG/DL (0.2-1.0); BLOOD UREA NITROGEN 30 MG/DL (7-18); CALCIUM LEVEL 8.5 MG/DL (8.8-10.2); CARBON DIOXIDE LEVEL 30 MEQ/L (21-32); CHLORIDE LEVEL 103 MEQ/L (98-107); CK-MB VALUE MASS < 1.0 NG/ML (<3.6); CPK CREATINE PHOSPHOKINASE 29 U/L (39-308); CREATININE FOR GFR 1.69 MG/DL (0.70-1.30); GLOMERULAR FILTRATION RATE 43.6 (>49); GLUCOSE, FASTING 91 MG/DL (70-100); MAGNESIUM LEVEL 1.2 MG/DL (1.8-2.4); MB/CK RELATIVE INDEX 3.44 (< OR =4); POTASSIUM SERUM 4.2 MEQ/L (3.5-5.1); SODIUM LEVEL 138 MEQ/L (136-145); TOTAL PROTEIN 6.1 GM/DL (6.4-8.2); TROPONIN I < 0.02 NG/ML (< 0.10)
[2018-04-13] MEDS: MAG SULF 1GM/100ML (MAG RUN) 1 GM in APPROPRIATE DILUENT 1 EA IV ×3 (11:01→19:54)
[2018-04-13] MEDS: NS 1,000 ML IV (11:01)
[2018-04-13] MEDS: MIDODRINE 2.5 MG TAB PO ×2 (13:23→16:37)
[2018-04-13 18:29] LABS: MAGNESIUM LEVEL 1.8 MG/DL (1.8-2.4)
[2018-04-13] MEDS: CYCLOBENZAPRINE 10 MG TAB GT (21:12)
[2018-04-14] MEDS: LEVOTHYROXINE 25MCG TABLET (0.025MG) GT (05:34)
[2018-04-14] MEDS: HEPARIN SOD (PORCINE) 5000 UNITS/ML VIAL SC (05:35)
[2018-04-14 05:59] LABS: HEMATOCRIT 25.8 % (42.0-52.0); MEAN CORPUSCULAR HEMOGLOBIN 34.9 pg (27.0-33.0); MEAN CORPUSCULAR HGB CONC 34.9 g/dl (32.0-36.5); PLATELET COUNT, AUTOMATED 138 10^3/uL (150-450); RED BLOOD COUNT 2.58 10^6/uL (4.30-6.10); RED CELL DISTRIBUTION WIDTH 17.6 % (11.5-14.5)
[2018-04-14 06:21] LABS: ALBUMIN 3.2 GM/DL (3.2-5.2); ALBUMIN/GLOBULIN RATIO 1.07 (1.00-1.93); ALKALINE PHOSPHATASE 96 U/L (45-117); ALT/SGPT 28 U/L (12-78); ANION GAP 8 MEQ/L (8-16); AST/SGOT 13 U/L (7-37); BILIRUBIN,TOTAL 0.4 MG/DL (0.2-1.0); BLOOD UREA NITROGEN 22 MG/DL (7-18); CALCIUM LEVEL 8.9 MG/DL (8.8-10.2); CARBON DIOXIDE LEVEL 29 MEQ/L (21-32); CHLORIDE LEVEL 103 MEQ/L (98-107); CREATININE FOR GFR 1.53 MG/DL (0.70-1.30); GLOMERULAR FILTRATION RATE 48.9 (>49); GLUCOSE, FASTING 90 MG/DL (70-100); MAGNESIUM LEVEL 1.7 MG/DL (1.8-2.4); POTASSIUM SERUM 4.1 MEQ/L (3.5-5.1); SODIUM LEVEL 140 MEQ/L (136-145); TOTAL PROTEIN 6.2 GM/DL (6.4-8.2)
[2018-04-14 06:23] LABS: POS COUNT POS FLAG; WHITE BLOOD COUNT 38.1 10^3/uL (4.0-10.0)
[2018-04-14 07:43] LABS: HEMATOCRIT 26.9 % (42.0-52.0); HEMOGLOBIN 9.7 g/dl (13.5-17.5); MEAN CORPUSCULAR HEMOGLOBIN 35.9 pg (27.0-33.0); MEAN CORPUSCULAR HGB CONC 36.1 g/dl (32.0-36.5); MEAN CORPUSCULAR VOLUME 99.6 fl (80.0-96.0); PLATELET COUNT, AUTOMATED 149 10^3/uL (150-450); RED CELL DISTRIBUTION WIDTH 17.9 % (11.5-14.5)
[2018-04-14 07:45] LABS: POS COUNT POS FLAG
[2018-04-14 07:46] LABS: WHITE BLOOD COUNT 43.2 10^3/uL (4.0-10.0)
[2018-04-14 08:15] LABS: REASON FOR REVIEW WBC/LEUKEMIA/BLAST; SOURCE PERIPHERAL SMEAR
[2018-04-14 08:21] LABS: C REACTIVE PROTEIN QUANTITATIV < 0.30 MG/DL (0.00-0.30)
[2018-04-14 08:29] LABS: ERYTHROCYTE SEDIMENTATION RATE 46 mm/hr (0-20)
[2018-04-14] MEDS: MULTIVITAMINS/MINERALS THERAP 1 TAB GT (10:05)
[2018-04-14] MEDS: ASPIRIN 81 MG ENTERIC TAB GT (10:05)
[2018-04-14] MEDS: AMIODARONE 200 MG TAB (PACERONE) GT (10:05)
[2018-04-14] MEDS: DOCUSATE SODIUM 100 MG CAP PO (10:05)
[2018-04-14] MEDS: PANTOPRAZOLE 40MG TAB (PROTONIX) PO (10:05)
[2018-04-14] MEDS: MAG SULF 1GM/100ML (MAG RUN) 1 GM in APPROPRIATE DILUENT 1 EA IV (10:07)
[2018-04-14] MEDS: MIDODRINE 2.5 MG TAB PO (10:13)
[2018-04-14 10:15] LABS: KETONE, URINE AUTO RFX NEGATIVE (NEGATIVE); LEUKOCYTE ESTERASE UR AUTO RFX NEGATIVE (NEGATIVE); NITRITE, URINE AUTO RFX NEGATIVE (NEGATIVE); RBC, URINE AUTO RFX 3 /HPF (0-3); SPECIFIC GRAVITY UR AUTO RFX 1.012 (1.002-1.035); SQUAM EPITHELIAL CELL UR AURFX 0 /HPF (0-6); WBC, URINE AUTO RFX 1 /HPF (0-3)
[2018-04-14 10:20] LABS: SLIDE REVIEW Report
== END 2018-04-14 11:48 | disposition home or self-care (01) ==
LOC: M PCU 04-13 02:50 → M MSPAV 04-13 17:26 → M ED 13:10 → M ED INP 16:49
DX: R55 Syncope and collapse (principal); D72.829 Elevated white blood cell count, unspecified; D53.9 Nutritional anemia, unspecified; D69.6 Thrombocytopenia, unspecified; I50.30 Unspecified diastolic (congestive) heart failure; I11.0 Hypertensive heart disease with heart failure; E03.9 Hypothyroidism, unspecified; K21.9 Gastro-esophageal reflux disease without esophagitis; I48.91 Unspecified atrial fibrillation; N18.3 Chronic kidney disease, stage 3 (moderate); Z79.82 Long term (current) use of aspirin; Z79.899 Other long term (current) drug therapy; Z91.030 Bee allergy status; Z85.01 Personal history of malignant neoplasm of esophagus; Z85.118 Personal history of other malignant neoplasm of bronchus and lung; Z87.891 Personal history of nicotine dependence; Z92.21 Personal history of antineoplastic chemotherapy
CPT/HCPCS: J3475

== ENCOUNTER 2018-05-03 07:03 | Outpatient (CLI) | payer MEDICARE ==
[2018-05-03] MEDS: ACETAMINOPHEN TAB 650MG DOSE (2X325MG) PO (08:31)
[2018-05-03] MEDS: diphenhydrAMINE 25 MG CAP PO (08:31)
[2018-05-03 08:34] LABS: IMMEDIATE SPIN CROSSMATCH 1 2
[2018-05-03] MEDS: FUROSEMIDE 20 MG/2 ML VIAL (J1940) IV (10:48)
== END 2018-05-03 13:10 | disposition home or self-care (01) ==
LOC: M INFU 07:03
DX: C15.9 Malignant neoplasm of esophagus, unspecified (principal); Z91.018 Allergy to other foods; Z79.899 Other long term (current) drug therapy; Z79.82 Long term (current) use of aspirin
CPT/HCPCS: 36430

== ENCOUNTER → 2018-05-21 | Outpatient (CLI) | payer MEDICARE ==
[~2018-05-21] MED LIST changes: +GASTROGRAFIN SOLUTION 30ML (Q9963) As Ordered; +ISOVUE-370 76% 100ML VIAL (Q9967) As Ordered; -LIDOCAINE 1% MDV 20ML VIAL As Ordered
== END ==
LOC: M RAD 08:20
DX: C15.9 Malignant neoplasm of esophagus, unspecified (principal); Z92.21 Personal history of antineoplastic chemotherapy; R91.8 Other nonspecific abnormal finding of lung field; C79.51 Secondary malignant neoplasm of bone; N40.0 Benign prostatic hyperplasia without lower urinary tract symptoms
CPT/HCPCS: Q9963

== ENCOUNTER → 2018-06-03 | Outpatient (CLI) | payer MEDICARE | LOC: M CARPUL 10:47 | DX: Z79.899 Other long term (current) drug therapy (principal); C15.9 Malignant neoplasm of esophagus, unspecified | CPT/HCPCS: 93306 ==

== ENCOUNTER → 2018-06-10 | Outpatient (REF) | payer MEDICARE ==
[2018-06-10 17:57] LABS: FERRITIN 830 NG/ML (26-388); IRON (FE) 153 UG/DL (65-175); PERCENT SATURATION 50.8 % (19.7-50.0); TOTAL IRON BINDING CAPACITY 301 UG/DL (250-450)
[2018-06-11 10:30] LABS: CA19-9 TUMOR MARKER,CARBOHYDRA 27.1 U/ML (<35.0)
== END ==
LOC: M LAB REF 17:01
DX: C15.9 Malignant neoplasm of esophagus, unspecified (principal); C78.00 Secondary malignant neoplasm of unspecified lung
CPT/HCPCS: 83550

== ENCOUNTER → 2018-07-22 | Outpatient (REF) | payer MEDICARE ==
[2018-07-23 10:28] LABS: CA19-9 TUMOR MARKER,CARBOHYDRA 25.9 U/ML (<35.0)
== END ==
LOC: M LAB REF 14:09
DX: C15.9 Malignant neoplasm of esophagus, unspecified (principal); C78.00 Secondary malignant neoplasm of unspecified lung
CPT/HCPCS: 86301

== ENCOUNTER → 2018-07-27 | Outpatient (CLI) | payer MEDICARE ==
[~2018-07-27] MED LIST changes: -ISOVUE-370 76% 100ML VIAL (Q9967) As Ordered
== END ==
LOC: M RAD 07:55
DX: C15.9 Malignant neoplasm of esophagus, unspecified (principal); C78.01 Secondary malignant neoplasm of right lung; C78.02 Secondary malignant neoplasm of left lung
CPT/HCPCS: Q9963

== ENCOUNTER → 2018-08-05 | Outpatient (CLI) | payer MEDICARE | LOC: M ONCR 12:38 | DX: C15.9 Malignant neoplasm of esophagus, unspecified (principal); Z87.891 Personal history of nicotine dependence | CPT/HCPCS: G0463 ==

== ENCOUNTER 2018-08-11 13:36 | Outpatient (RCR) | payer MEDICARE | END 2018-09-01 | LOC: M ONCR 13:36 | DX: C79.51 Secondary malignant neoplasm of bone (principal); C15.9 Malignant neoplasm of esophagus, unspecified | CPT/HCPCS: 77290 ==

== ENCOUNTER → 2018-08-12 | Outpatient (REF) | payer MEDICARE | LOC: M LAB REF 09:24 | DX: C34.11 Malignant neoplasm of upper lobe, right bronchus or lung (principal) | CPT/HCPCS: 88300 ==

== ENCOUNTER → 2018-08-13 | Outpatient (CLI) | payer MEDICARE ==
[~2018-08-13] MED LIST changes: +E-Z-GAS II EFFERVESCENT PACKET (SODIUM BICARB./CITRIC ACID/SIMETHICONE) As Ordered; +E-Z-HD 98% w/w 340GM SUSP BTL As Ordered; +E-Z-PAQUE 96% w/w SUSP 176GM BTL As Ordered; -GASTROGRAFIN SOLUTION 30ML (Q9963) As Ordered
== END ==
LOC: M RAD 07:38
DX: K22.2 Esophageal obstruction (principal); C15.4 Malignant neoplasm of middle third of esophagus
CPT/HCPCS: 74220

== ENCOUNTER 2018-08-17 11:22 | Day surgery (SDC) | payer MEDICARE ==
[~2018-08-17 11:22] MED LIST changes: -E-Z-GAS II EFFERVESCENT PACKET (SODIUM BICARB./CITRIC ACID/SIMETHICONE) As Ordered; -E-Z-HD 98% w/w 340GM SUSP BTL As Ordered; -E-Z-PAQUE 96% w/w SUSP 176GM BTL As Ordered; +LR 1,000 ML IV; +NS 1,000 ML IV
[2018-08-17] MEDS ORDERED: MIDAZOLAM INJ 2 MG/2 ML VIAL (J2250) As Ordered (14:03)
[2018-08-17] MEDS ORDERED: ONDANSETRON 4MG/2ML VIAL (J2405) As Ordered (14:03)
[2018-08-17] MEDS ORDERED: fentaNYL 100 MCG/2 ML INJECTION (J3010) As Ordered (14:03)
[2018-08-17] MEDS ORDERED: PROPOFOL 200 MG/20 ML VIAL As Ordered ×3 (14:03→15:31)
[2018-08-17] MEDS ORDERED: LIDOCAINE 2% INJ 100 MG/5 ML SDV (FOR ANES.) As Ordered (14:03)
[2018-08-17] MEDS: ISOVUE-300 61% 50ML VIAL (Q9967) As Ordered (15:30)
== END 2018-08-17 16:55 | disposition home or self-care (01) ==
LOC: M SDC 11:22
DX: C15.9 Malignant neoplasm of esophagus, unspecified (principal); K22.2 Esophageal obstruction; R13.10 Dysphagia, unspecified; D49.0 Neoplasm of unspecified behavior of digestive system; I48.91 Unspecified atrial fibrillation; I25.10 Atherosclerotic heart disease of native coronary artery without angina pectoris; E03.9 Hypothyroidism, unspecified; G47.30 Sleep apnea, unspecified; Z79.899 Other long term (current) drug therapy; K21.9 Gastro-esophageal reflux disease without esophagitis; Z87.891 Personal history of nicotine dependence
CPT/HCPCS: 43266

== ENCOUNTER → 2018-08-20 | Outpatient (CLI) | payer MEDICARE | LOC: M RAD 12:48 | DX: C15.4 Malignant neoplasm of middle third of esophagus (principal); K22.2 Esophageal obstruction | CPT/HCPCS: 70360 ==

== ENCOUNTER 2018-08-22 12:47 | Emergency (ER) | payer MEDICARE ==
[2018-08-22 13:47] LABS: BASO % 0.4 % (0.0-1.0); EOS # 0.1 10^3/uL (0.0-0.50); EOS % 1.3 % (0.0-3.0); HEMATOCRIT 30.5 % (42.0-52.0); HEMOGLOBIN 10.1 g/dl (13.5-17.5); IMMATURE GRANULOCYTE % 0.3 % (0-3.0); LYMPH # 1.1 10^3/uL (1.5-4.5); LYMPH % 15.9 % (24.0-44.0); MEAN CORPUSCULAR HEMOGLOBIN 34.1 pg (27.0-33.0); MEAN CORPUSCULAR HGB CONC 33.1 g/dl (32.0-36.5); MONO # 0.7 10^3/uL (0.0-0.8); MONO % 10.6 % (0.0-5.0); NEUTROPHILS # 4.9 10^3/uL (1.8-7.7); NEUTROPHILS % 71.5 % (36.0-66.0); PLATELET COUNT, AUTOMATED 195 10^3/uL (150-450); RED BLOOD COUNT 2.96 10^6/uL (4.30-6.10); RED CELL DISTRIBUTION WIDTH 11.9 % (11.5-14.5); WHITE BLOOD COUNT 6.9 10^3/uL (4.0-10.0)
[2018-08-22 14:03] LABS: ALBUMIN 3.1 GM/DL (3.2-5.2); ALBUMIN/GLOBULIN RATIO 0.89 (1.00-1.93); ALKALINE PHOSPHATASE 79 U/L (45-117); ALT/SGPT 19 U/L (12-78); AMYLASE 38 U/L (25-115); ANION GAP 9 MEQ/L (8-16); AST/SGOT 14 U/L (7-37); BILIRUBIN,DIRECT < 0.1 MG/DL (0.0-0.2); BILIRUBIN,TOTAL 0.2 MG/DL (0.2-1.0); BLOOD UREA NITROGEN 15 MG/DL (7-18); C REACTIVE PROTEIN QUANTITATIV 6.48 MG/DL (0.00-0.30); CALCIUM LEVEL 8.7 MG/DL (8.8-10.2); CARBON DIOXIDE LEVEL 27 MEQ/L (21-32); CHLORIDE LEVEL 105 MEQ/L (98-107); CK-MB VALUE MASS < 1.0 NG/ML (<3.6); CPK CREATINE PHOSPHOKINASE 30 U/L (39-308); GLOMERULAR FILTRATION RATE 46.4 (>49); GLUCOSE, FASTING 100 MG/DL (70-100); LIPASE 64 U/L (73-393); MB/CK RELATIVE INDEX 3.33 (< OR =4); POTASSIUM SERUM 4.5 MEQ/L (3.5-5.1); SODIUM LEVEL 141 MEQ/L (136-145); TOTAL PROTEIN 6.6 GM/DL (6.4-8.2); TROPONIN I < 0.02 NG/ML (< 0.10)
[2018-08-22] MEDS ORDERED: GASTROGRAFIN SOLUTION 30ML (Q9963) As Ordered (14:13)
[2018-08-22 14:14] LABS: INR 0.99; PROTHROMBIN TIME 13.2 SECONDS (12.1-14.4)
[2018-08-22 14:15] LABS: PARTIAL THROMBOPLASTIN TIME 30.2 SECONDS (25.4-37.6)
[2018-08-22 14:21] LABS: LACTIC ACID SEPSIS PROTOCOL 1.2 MMOL/L (0.4-2.0)
[2018-08-22] MEDS: MORPHINE 2 MG/ML 1ML SYRINGE (J2270) IV (15:07)
[2018-08-22] MEDS: NS 500 ML IV (16:10)
[2018-08-22 20:08] LABS: KETONE, URINE AUTO RFX NEGATIVE (NEGATIVE); LEUKOCYTE ESTERASE UR AUTO RFX TRACE (NEGATIVE); MUCUS, URINE RFX SMALL (NEGATIVE); NITRITE, URINE AUTO RFX NEGATIVE (NEGATIVE); RBC, URINE AUTO RFX 3 /HPF (0-3); SPECIFIC GRAVITY UR AUTO RFX 1.012 (1.002-1.035); SQUAM EPITHELIAL CELL UR AURFX 0 /HPF (0-6); WBC, URINE AUTO RFX 18 /HPF (0-3)
[2018-08-22 20:31] LABS: CK-MB VALUE MASS < 1.0 NG/ML (<3.6); CPK CREATINE PHOSPHOKINASE 42 U/L (39-308); MB/CK RELATIVE INDEX 2.38 (< OR =4); TROPONIN I < 0.02 NG/ML (< 0.10)
[2018-08-22] MEDS: cefTRIAXone SOD 1 GM in D5W MINI-BAG PLUS 50 ML IV (20:53)
== END 2018-08-22 21:50 | disposition home or self-care (01) ==
LOC: M ED 12:47
DX: N39.0 Urinary tract infection, site not specified (principal); M25.511 Pain in right shoulder; I50.9 Heart failure, unspecified; N18.3 Chronic kidney disease, stage 3 (moderate); I95.9 Hypotension, unspecified; K21.9 Gastro-esophageal reflux disease without esophagitis; E03.9 Hypothyroidism, unspecified; Z79.899 Other long term (current) drug therapy; Z79.890 Hormone replacement therapy; Z79.82 Long term (current) use of aspirin; Z91.018 Allergy to other foods
CPT/HCPCS: Q9963

== ENCOUNTER → 2018-08-27 | Outpatient (CLI) | payer MEDICARE | LOC: M RAD 09:34 | DX: C15.9 Malignant neoplasm of esophagus, unspecified (principal); C79.51 Secondary malignant neoplasm of bone | CPT/HCPCS: 78306 ==

== ENCOUNTER → 2018-09-07 | Outpatient (CLI) | payer MEDICARE | LOC: M ONCR 13:46 | DX: C15.9 Malignant neoplasm of esophagus, unspecified (principal) | CPT/HCPCS: G0463 ==

== ENCOUNTER 2018-09-14 10:15 | Day surgery (SDC) | payer MEDICARE ==
[2018-09-14] MEDS ORDERED: PROPOFOL 200 MG/20 ML VIAL As Ordered (10:24)
[2018-09-14] MEDS: NS 1,000 ML IV (10:27)
[2018-09-14] MEDS ORDERED: MIDAZOLAM INJ 2 MG/2 ML VIAL (J2250) As Ordered (11:06)
[2018-09-14] MEDS ORDERED: fentaNYL 100 MCG/2 ML INJECTION (J3010) As Ordered (11:16)
[2018-09-14] MEDS ORDERED: LIDOCAINE 2% INJ 100 MG/5 ML SDV (FOR ANES.) As Ordered (11:18)
== END 2018-09-14 12:32 | disposition home or self-care (01) ==
LOC: M OPP 12:32
DX: R13.10 Dysphagia, unspecified (principal); C15.9 Malignant neoplasm of esophagus, unspecified; K22.8 Other specified diseases of esophagus; K44.9 Diaphragmatic hernia without obstruction or gangrene; K29.70 Gastritis, unspecified, without bleeding; Z43.1 Encounter for attention to gastrostomy; Z97.8 Presence of other specified devices; K25.9 Gastric ulcer, unspecified as acute or chronic, without hemorrhage or perforation
CPT/HCPCS: 43239

== ENCOUNTER → 2018-10-01 | Outpatient (RCR) | payer MEDICARE ==
--- NOTE | 2018-09-09 11:14 | RADONC ---
RADIATION ONCOLOGY PROGRESS NOTE DATE: 09/07/2018 CHART #: [id number] DIAGNOSIS: Esophageal cancer. STAGE: IV metastatic. ECOG PERFORMANCE STATUS: 1. PROGRESS NOTE: Mr. 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 We simulated the patient, but following simulation the patient underwent placement of a stent, as had been originally discussed by myself and his other physicians. He did well and we did not plan on delivering radiation following that. The patient contacted our office however and asked for a followup consultation. The patient and his presented today saying that he is now having significant pain and discomfort in the chest area at the level of his esophageal cancer. He reports that it seems to radiate from the scapular region all the way around to the anterior sternal area. The area being pointed to is indeed within the region of his initial disease. I have reviewed the patient's CT scans as well as his bone scan and I am not seeing any significant bone metastasis in that area. In light of that, I did discuss the possibility of treating him to the stent region. This may alleviate some of his discomfort and may also stabilize the stent from future tumor growth and collapse. The patient is in agreement with treatment to this region. I have therefore set him up for re-CT simulation to be done today and treatment planning will follow. Thank you for allowing us to participate in the care of this very pleasant gentleman. If I could be of any further assistance please free to contact me at anytime. As always warm regards. cc: Deborah Kaminski MD, FACP MD Tono Chan MD
--- NOTE | 2018-09-09 11:15 | RADONC ---
RADIATION ONCOLOGY SIMULATION NOTE: DATE: 09/07/2018 CHART NUMBER: [id number] DIAGNOSIS: Esophageal cancer. STAGE: IV, metastatic. ECOG PERFORMANCE STATUS: 1 Mr. Ruano was taken to the CT scan for re-CT simulation of his stent and esophageal zhu. CT was accomplished without difficulty or discomfort. Radiation treatment planning is underway and radiation treatments will begin subsequently. We initially simulated him prior to this but the patient then had a stent placed. In light of this, we are now undertaking a second CT simulation. The patient is eating since this stent but unfortunately is having pain and discomfort. It is coming from the region of the stent site. We are therefore, treating him for palliation of this area.
--- NOTE | 2018-09-21 12:10 | RADONC ---
RADIATION ONCOLOGY PROGRESS NOTE DATE: 09/20/2018 CHART NUMBER: [id number] PROGRESS NOTE: Mr. Ruano is presently at a dose of 1000 cGy to his esophagus and is tolerating treatments quite well at this point with no complaints related to his radiation therapy. He is having no increased problems with treatment. REVIEW OF SYSTEMS: The patient's review of systems is positive for some continued mid thoracic pain but is otherwise noncontributory. Denies nausea, vomiting, fevers, chills, night sweats, diplopia, headaches, anxiety or depression, anorexia, weight loss, visual disturbances, chest pain, urinary or bowel difficulties, bone pain, or neurological problems. PHYSICAL EXAMINATION: The patient's skin is in excellent condition with no evidence of radiation change present. There is no moist or dry desquamation. The remainder of his physical exam remains unchanged. Mr. Ruano is tolerating treatments quite well and radiation will continue as scheduled.
--- NOTE | 2018-09-27 16:15 | RADONC ---
RADIATION ONCOLOGY PROGRESS NOTE DATE: 09/27/2018 CHART NUMBER: [id number] PROGRESS NOTE: Mr. Ruano is presently at a dose of 1750 cGy to his esophagus and is tolerating treatments quite well at this point with no complaints at this time related to his radiation therapy. He is however reporting a cough, which is productive of yellowish sputum. He is swallowing. REVIEW OF SYSTEMS: The patient's review of systems is positive for his cough as well as his general physical limitations of weakness but is otherwise unchanged. PHYSICAL EXAMINATION; His physical exam also remains unchanged. His skin is in good condition with no evidence of moist or dry desquamation. Mr. Ruano is tolerating his treatments quite well. I have recommended he contact his primary care physician today to evaluate his overall condition.
[~2018-10-01] MED LIST changes: +AMIO200T PO; +AMOX875T PO; +ASPI1TAB PO; +ASPI81TA21 PO; +AUGM500T34 PO; +CEFD300CAP PO; +COLA100C5 PO; +COUM1TAB17 GT; +CYCL10TA PO; +ELIQ5TAB GT; +ELIQ5TAB PO; +GABA250S6 GT; +IBUP200C25 PO; +LASI40TA GT; +LEVA750T7 PO; +LEVO25TA5 PO; +LISI10TA4 GT; +LISI2.5T5 PO; -LR 1,000 ML IV; +METO1TAB87 PO; +METO50TA7 GT; +MIDO2.5T PO; +MIRA3350 GT; +MULT1TAB10 PO; -NS 1,000 ML IV; +OMEP20CA3 PO; +ONDA4TAB5 PO; +OXYC1TAB23 PO; +PANT40TA3 GT; +PANT40TA3 PO; +PERC5TAB12 PO; +TESS100C PO; +TYLE500T78 PO
== END ==
LOC: M ONCR 09-07 08:21
PROVIDERS: ATTEND Radiology Radiation Oncology
DX: C15.9 Malignant neoplasm of esophagus, unspecified (principal); C79.51 Secondary malignant neoplasm of bone

== ENCOUNTER 2018-10-03 17:23 | Inpatient (IN) | payer MEDICARE ==
[2018-10-03] MEDS: METOPROLOL 5 MG/5 ML VIAL IV ×3 (17:45→18:26)
[2018-10-03 18:00] LABS: BASO % 0.3 % (0.0-1.0); EOS # 0.1 10^3/uL (0.0-0.50); EOS % 1.4 % (0.0-3.0); HEMATOCRIT 35.8 % (42.0-52.0); HEMOGLOBIN 12.2 g/dl (13.5-17.5); IMMATURE GRANULOCYTE % 0.8 % (0-3.0); LYMPH # 0.7 10^3/uL (1.5-4.5); LYMPH % 7.7 % (24.0-44.0); MEAN CORPUSCULAR HEMOGLOBIN 32.8 pg (27.0-33.0); MEAN CORPUSCULAR HGB CONC 34.1 g/dl (32.0-36.5); MEAN CORPUSCULAR VOLUME 96.2 fl (80.0-96.0); MONO # 0.8 10^3/uL (0.0-0.8); MONO % 9.6 % (0.0-5.0); NEUTROPHILS % 80.2 % (36.0-66.0); PLATELET COUNT, AUTOMATED 214 10^3/uL (150-450); RED BLOOD COUNT 3.72 10^6/uL (4.30-6.10); RED CELL DISTRIBUTION WIDTH 12.7 % (11.5-14.5); WHITE BLOOD COUNT 8.7 10^3/uL (4.0-10.0)
[2018-10-03] MEDS: NS 1,000 ML IV (18:00)
[2018-10-03 18:12] LABS: D-DIMER QUANT 660.49 ng/ml (<500)
[2018-10-03 18:33] LABS: ANION GAP 8 MEQ/L (8-16); BLOOD UREA NITROGEN 22 MG/DL (7-18); CALCIUM LEVEL 9.1 MG/DL (8.8-10.2); CARBON DIOXIDE LEVEL 30 MEQ/L (21-32); CHLORIDE LEVEL 102 MEQ/L (98-107); CK-MB VALUE MASS < 1.0 NG/ML (<3.6); CPK CREATINE PHOSPHOKINASE 30 U/L (39-308); CREATININE FOR GFR 1.55 MG/DL (0.70-1.30); GLOMERULAR FILTRATION RATE 48.1 (>49); GLUCOSE, FASTING 93 MG/DL (70-100); MB/CK RELATIVE INDEX 3.33 (< OR =4); NT-PRO BNP 1277 PG/ML (<125); POTASSIUM SERUM 4.4 MEQ/L (3.5-5.1); SODIUM LEVEL 140 MEQ/L (136-145); TROPONIN I < 0.02 NG/ML (< 0.10)
[2018-10-03 18:49] LABS: LACTIC ACID SEPSIS PROTOCOL 1.7 MMOL/L (0.4-2.0)
[2018-10-03] MEDS: HEPARIN DRIP 25,000 UNITS in APPROPRIATE DILUENT 1 EA IV (19:56)
[2018-10-03 20:22] LABS: PARTIAL THROMBOPLASTIN TIME 27.1 SECONDS (25.4-37.6)
[2018-10-03 20:56] LABS: CK-MB VALUE MASS < 1.0 NG/ML (<3.6); CPK CREATINE PHOSPHOKINASE 28 U/L (39-308); MB/CK RELATIVE INDEX 3.57 (< OR =4); TROPONIN I < 0.02 NG/ML (< 0.10)
[2018-10-03] MEDS ORDERED: ACETAMINOPHEN TAB 650MG DOSE (2X325MG) PO (21:00)
[2018-10-03] MEDS ORDERED: ONDANSETRON 4MG/2ML VIAL (J2405) IV (21:00)
[2018-10-03] MEDS ORDERED: BISACODYL 10 MG SUPP PR (21:00)
[2018-10-03 21:26] LABS: FERRITIN 521 NG/ML (26-388); IRON (FE) 35 UG/DL (65-175); TOTAL IRON BINDING CAPACITY 206 UG/DL (250-450)
[2018-10-03] MEDS: AZITHROMYCIN INJ 500 MG, VIAL MATE ADAPTER 1 EACH in D5W 250 ML IV (21:30)
[2018-10-03] MEDS: cefTRIAXone SOD 1 GM VIAL (J0696) IM (23:50)
[2018-10-03] MEDS: PERCOCET 5MG/325MG TAB PO (23:58)
[2018-10-04 01:30] LABS: TROPONIN I < 0.02 NG/ML (< 0.10)
[2018-10-04] MEDS: HEPARIN SOD (PORCINE) 5000 UNITS/ML VIAL IV (01:53)
[2018-10-04] MEDS: HEPARIN DRIP 25,000 UNITS in APPROPRIATE DILUENT 1 EA IV (01:56)
[2018-10-04] MEDS: LEVOTHYROXINE 25MCG TABLET (0.025MG) PO (06:00)
[2018-10-04 06:34] LABS: HEMATOCRIT 30.7 % (42.0-52.0); HEMOGLOBIN 10.3 g/dl (13.5-17.5); MEAN CORPUSCULAR HEMOGLOBIN 32.1 pg (27.0-33.0); MEAN CORPUSCULAR HGB CONC 33.6 g/dl (32.0-36.5); MEAN CORPUSCULAR VOLUME 95.6 fl (80.0-96.0); PLATELET COUNT, AUTOMATED 168 10^3/uL (150-450); RED BLOOD COUNT 3.21 10^6/uL (4.30-6.10); RED CELL DISTRIBUTION WIDTH 12.9 % (11.5-14.5); WHITE BLOOD COUNT 6.7 10^3/uL (4.0-10.0)
[2018-10-04 07:06] LABS: ANION GAP 6 MEQ/L (8-16); BLOOD UREA NITROGEN 16 MG/DL (7-18); CALCIUM LEVEL 8.3 MG/DL (8.8-10.2); CARBON DIOXIDE LEVEL 30 MEQ/L (21-32); CHLORIDE LEVEL 106 MEQ/L (98-107); CREATININE FOR GFR 1.42 MG/DL (0.70-1.30); GLOMERULAR FILTRATION RATE 53.3 (>49); GLUCOSE, FASTING 89 MG/DL (70-100); POTASSIUM SERUM 4.3 MEQ/L (3.5-5.1); SODIUM LEVEL 142 MEQ/L (136-145); TROPONIN I < 0.02 NG/ML (< 0.10)
[2018-10-04] MEDS: PANTOPRAZOLE 40MG TAB (PROTONIX) PO (08:03)
[2018-10-04] MEDS: MULTIVITAMINS/MINERALS THERAP 1 TAB PO (08:04)
[2018-10-04] MEDS: AMIODARONE 200 MG TAB (PACERONE) PO (08:04)
[2018-10-04] MEDS: PERCOCET 5MG/325MG TAB PO ×2 (08:04→20:42)
[2018-10-04] MEDS: CYCLOBENZAPRINE 10 MG TAB PO (08:04)
[2018-10-04] MEDS: ASPIRIN 81 MG ENTERIC TAB PO (08:04)
[2018-10-04] MEDS: MIRALAX *UNIT DOSE* 17GM PACKET GT (08:05)
[2018-10-04 08:16] LABS: PARTIAL THROMBOPLASTIN TIME 102.6 SECONDS (25.4-37.6)
[2018-10-04 08:44] LABS: APPEARANCE, URINE CLEAR (CLEAR); BACTERIA, URINE AUTO NEGATIVE (NEGATIVE); BILIRUBIN, URINE AUTO NEGATIVE (NEGATIVE); BLOOD, URINE BLOOD NEGATIVE (NEGATIVE); COLOR, URINE STRAW (YELLOW); GLUCOSE, URINE (UA) AUTO NEGATIVE (NEGATIVE); KETONE, URINE AUTO NEGATIVE (NEGATIVE); LEUKOCYTE ESTERASE, URINE AUTO NEGATIVE (NEGATIVE); MUCUS, URINE SMALL (NEGATIVE); NITRITE, URINE AUTO NEGATIVE (NEGATIVE); PROTEIN, URINE AUTO NEGATIVE (NEGATIVE); RBC, URINE AUTO 0 /HPF (0-3); SPECIFIC GRAVITY URINE AUTO 1.011 (1.002-1.035); SQUAMOUS EPITHELIAL CELL UR AU 0 /HPF (0-6); UROBILINOGEN, URINE AUTO 0.2 mg/dL (0.0-2.0); WBC, URINE AUTO 1 /HPF (0-3)
[2018-10-04 09:11] LABS: CHLORIDE,RANDOM URINE 117 MEQ/L; SODIUM,RANDOM URINE 98 MEQ/L; TOTAL PROTEIN,RANDOM URINE 9.5 MG/DL (0.0-12.0)
[2018-10-04 11:59] LABS: VITAMIN B12 LEVEL 510 PG/ML (247-911)
[2018-10-04 12:00] LABS: FOLATE 19.8 NG/ML (>5.4)
[2018-10-04] MEDS ORDERED: HEPARIN 25,000 UNITS/250 ML D5W BAG (100 UNITS/ML) As Ordered (13:43)
[2018-10-04 14:29] LABS: TROPONIN I < 0.02 NG/ML (< 0.10)
[2018-10-04] MEDS: AZITHROMYCIN INJ 500 MG, VIAL MATE ADAPTER 1 EACH in D5W 250 ML IV (20:42)
[2018-10-05] MEDS: cefTRIAXone SOD 1 GM in D5W MINI-BAG PLUS 50 ML IV ×2 (00:43→23:40)
[2018-10-05] MEDS: LEVOTHYROXINE 25MCG TABLET (0.025MG) PO (06:13)
[2018-10-05] MEDS: ASPIRIN 81 MG ENTERIC TAB PO (08:45)
[2018-10-05] MEDS: CYCLOBENZAPRINE 10 MG TAB PO (08:45)
[2018-10-05] MEDS: AMIODARONE 200 MG TAB (PACERONE) PO (08:45)
[2018-10-05] MEDS: MIRALAX *UNIT DOSE* 17GM PACKET GT (08:45)
[2018-10-05] MEDS: PANTOPRAZOLE 40MG TAB (PROTONIX) PO (08:45)
[2018-10-05] MEDS: MULTIVITAMINS/MINERALS THERAP 1 TAB PO (08:45)
[2018-10-05] MEDS: PERCOCET 5MG/325MG TAB PO ×2 (10:18→16:50)
[2018-10-05] MEDS: METOPROLOL TART 25 MG TABLET PO ×2 (13:06→20:36)
[2018-10-05 17:39] LABS: HEMATOCRIT 31.1 % (42.0-52.0); HEMOGLOBIN 10.3 g/dl (13.5-17.5); MEAN CORPUSCULAR HEMOGLOBIN 31.7 pg (27.0-33.0); MEAN CORPUSCULAR HGB CONC 33.1 g/dl (32.0-36.5); MEAN CORPUSCULAR VOLUME 95.7 fl (80.0-96.0); PLATELET COUNT, AUTOMATED 202 10^3/uL (150-450); RED BLOOD COUNT 3.25 10^6/uL (4.30-6.10); RED CELL DISTRIBUTION WIDTH 12.8 % (11.5-14.5); WHITE BLOOD COUNT 6.7 10^3/uL (4.0-10.0)
[2018-10-05 17:55] LABS: ANION GAP 6 MEQ/L (8-16); BLOOD UREA NITROGEN 17 MG/DL (7-18); C REACTIVE PROTEIN QUANTITATIV 2.69 MG/DL (0.00-0.30); CARBON DIOXIDE LEVEL 28 MEQ/L (21-32); CHLORIDE LEVEL 105 MEQ/L (98-107); CREATININE FOR GFR 1.48 MG/DL (0.70-1.30); GLOMERULAR FILTRATION RATE 50.8 (>49); GLUCOSE, FASTING 94 MG/DL (70-100); MAGNESIUM LEVEL 1.7 MG/DL (1.8-2.4); POTASSIUM SERUM 4.4 MEQ/L (3.5-5.1); SODIUM LEVEL 139 MEQ/L (136-145)
[2018-10-05 18:08] LABS: ERYTHROCYTE SEDIMENTATION RATE 64 mm/hr (0-20)
[2018-10-05] MEDS: AZITHROMYCIN INJ 500 MG, VIAL MATE ADAPTER 1 EACH in D5W 250 ML IV (20:34)
[2018-10-05] MEDS: HEPARIN SOD (PORCINE) 5000 UNITS/ML VIAL SQ (22:34)
[2018-10-06] MEDS: LEVOTHYROXINE 25MCG TABLET (0.025MG) PO (05:34)
[2018-10-06] MEDS: HEPARIN SOD (PORCINE) 5000 UNITS/ML VIAL SQ (05:34)
[2018-10-06 05:45] LABS: HEMATOCRIT 31.1 % (42.0-52.0); HEMOGLOBIN 10.3 g/dl (13.5-17.5); MEAN CORPUSCULAR HEMOGLOBIN 31.7 pg (27.0-33.0); MEAN CORPUSCULAR HGB CONC 33.1 g/dl (32.0-36.5); MEAN CORPUSCULAR VOLUME 95.7 fl (80.0-96.0); PLATELET COUNT, AUTOMATED 182 10^3/uL (150-450); RED BLOOD COUNT 3.25 10^6/uL (4.30-6.10); RED CELL DISTRIBUTION WIDTH 12.8 % (11.5-14.5); WHITE BLOOD COUNT 5.5 10^3/uL (4.0-10.0)
[2018-10-06 06:08] LABS: ANION GAP 7 MEQ/L (8-16); BLOOD UREA NITROGEN 17 MG/DL (7-18); CALCIUM LEVEL 8.1 MG/DL (8.8-10.2); CARBON DIOXIDE LEVEL 28 MEQ/L (21-32); CHLORIDE LEVEL 106 MEQ/L (98-107); CREATININE FOR GFR 1.37 MG/DL (0.70-1.30); GLOMERULAR FILTRATION RATE 55.5 (>49); GLUCOSE, FASTING 84 MG/DL (70-100); MAGNESIUM LEVEL 1.8 MG/DL (1.8-2.4); POTASSIUM SERUM 4.1 MEQ/L (3.5-5.1); SODIUM LEVEL 141 MEQ/L (136-145)
[2018-10-06] MEDS: MIRALAX *UNIT DOSE* 17GM PACKET GT (09:32)
[2018-10-06] MEDS: PANTOPRAZOLE 40MG TAB (PROTONIX) PO (09:33)
[2018-10-06] MEDS: ASPIRIN 81 MG ENTERIC TAB PO (09:33)
[2018-10-06] MEDS: METOPROLOL TART 25 MG TABLET PO (09:33)
[2018-10-06] MEDS: CYCLOBENZAPRINE 10 MG TAB PO (09:33)
[2018-10-06] MEDS: AMIODARONE 200 MG TAB (PACERONE) PO (09:33)
[2018-10-06] MEDS: MULTIVITAMINS/MINERALS THERAP 1 TAB PO (09:33)
[2018-10-06] MEDS ORDERED: SLF 3 ML SYR IV ×2 (11:30→14:00)
[2018-10-07 00:07] LABS: LEGIONELLA ANTIGEN URINE Negative (Negative)
[2018-10-07 10:12] LABS: URINE BICARBONATE <5 mmol/L (.)
== END 2018-10-06 14:02 | disposition home or self-care (01) | DRG 178 ==
LOC: M PCU 10-04 17:21 → M ED 17:23 → M ED INP 20:50
DX: J15.0 Pneumonia due to Klebsiella pneumoniae (principal); C79.51 Secondary malignant neoplasm of bone; C15.9 Malignant neoplasm of esophagus, unspecified; I48.2 Chronic atrial fibrillation; E03.9 Hypothyroidism, unspecified; N18.3 Chronic kidney disease, stage 3 (moderate); G47.33 Obstructive sleep apnea (adult) (pediatric); Z79.82 Long term (current) use of aspirin; Z79.899 Other long term (current) drug therapy; Z91.018 Allergy to other foods; D64.9 Anemia, unspecified

== ENCOUNTER 2018-10-14 10:01 | Outpatient (RCR) | payer MEDICARE ==
--- NOTE | 2018-10-12 13:21 | RADONC ---
RADIATION ONCOLOGY PROGRESS NOTE DATE: 10/11/2018 CHART #: [id number] Mr. Ruano is presently at a dose of 3000 cGy to his esophagus and is tolerating his treatments quite well at this point with no complaints related to his radiation therapy. He was off last week for cardiac arrhythmias. He is returning today for reinitiation of treatment. He reports that he is having no cardiac discomfort or problems at this time. The patient is having no pain or increased difficulty swallowing. PHYSICAL EXAMINATION: The patient's skin shows no evidence of moist or dry desquamation. The remainder of his physical exam remains unchanged. Mr. Ruano is tolerating treatments quite well and radiation will continue as scheduled.
[~2018-10-14 10:01] MED LIST changes: -AUGM500T34 PO; -OXYC1TAB23 PO
[2018-10-14] MEDS ORDERED: OXYC1TAB23 PO (11:31)
--- NOTE | 2018-10-15 14:58 | RADONC ---
RADIATION ONCOLOGY DATE: 10/14/2018 CHART NUMBER: [id number] DIAGNOSIS: Esophageal cancer. STAGE: IV, metastatic. ECOG PERFORMANCE STATUS: 2 TREATMENT SUMMARY: Mr. Ruano was treated to his esophagus for a dose of 3750 cGy delivered in 15 fractions of 250 cGy each over 29 elapsed days from 09/15/2018 through 10/14/2018. The patient's esophagus was treated on a linear accelerator utilizing a 15 MV photon beam via anterior and posterior parallel opposed zhu. The patient tolerated his radiation quite well and was able to complete therapy. He did have a cardiac issue and was admitted to a hospital in [place] causing a slight interruption in his palliative treatment. I have scheduled the patient to see me again in 1 month for further followup. He will also continue to be followed by his other physicians as well. cc: Deborah Kaminski MD, FACP MD Tono Chan MD
== END 2018-11-01 ==
LOC: M ONCR 10:01
PROVIDERS: ATTEND Radiology Radiation Oncology
DX: C15.9 Malignant neoplasm of esophagus, unspecified (principal); C79.51 Secondary malignant neoplasm of bone

== ENCOUNTER → 2018-11-25 | Outpatient (CLI) | payer MEDICARE ==
[~2018-11-25] MED LIST changes: +AUGM500T34 PO; -LASI40TA GT; +LASI40TA9 GT; +OXYC1TAB23 PO; +calcium
--- NOTE | 2018-11-26 09:50 | RADONC ---
RADIATION ONCOLOGY FOLLOWUP NOTE DATE: 11/25/2018 CHART #: [id number] DIAGNOSIS: Esophageal cancer. STAGE: IV, metastatic. ECOG PERFORMANCE STATUS: 2. FOLLOWUP NOTE Mr. 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 The patient presents today reporting that he is generally doing quite well. He is able to swallow not only soft foods but solid foods. Indeed he says he has no difficulty eating or swallowing. REVIEW OF SYSTEMS: The patient's review of systems is positive for generalized weakness and physical limitations. It is otherwise generally unchanged and noncontributory. Denies nausea, vomiting, fevers, chills, night sweats, diplopia, headaches, anxiety or depression, anorexia, weight loss, visual disturbances, chest pain, urinary or bowel difficulties, bone pain, or neurological problems. PHYSICAL EXAMINATION: The patient is a chronically ill-appearing elderly white male in no acute distress. HEENT: Exam is normocephalic, atraumatic. Extraocular movements are intact. There is no palpable cervical, supraclavicular, infraclavicular or axillary lymphadenopathy present. His lungs are generally clear to auscultation and percussion. ASSESSMENT: Mr. Ruano is clinically doing well at this point and is receiving chemotherapy on a weekly basis. Since he is being followed and managed so closely by his medical oncologist, I have discharged him from our followup except on a p.r.n. basis. cc: Deborah Kaminski MD, FACP MD Tono Chan MD
--- NOTE | 2018-11-26 15:56 | MEDONC ---
REVIEW PATIENT FOLLOWUP: DATE OF SERVICE: 11/25/2018 DIAGNOSIS: Metastatic esophageal carcinoma, HER2 positive. TREATMENT SUMMARY: 1. Metastatic esophageal cancer with esophageal nodule biopsy 12/2017 showing adenocarcinoma, HER2 positive by FISH testing. CT scan from 12/2017 showing multiple lung nodules concerning for metastatic disease with right lung nodule biopsy 12/2017 showing moderate to poorly differentiated adenocarcinoma morphologically consistent with esophageal primary. Started cisplatin/fluorouracil/trastuzumab systemic treatment December 2017. CT scan from 05/2018 showing a positive response. 2. Completed six cycles of cisplatin/fluorouracil chemotherapy May 2018. On trastuzumab maintenance therapy up to August 2018. 3. CT scan from 07/2018 showing disease progression in lung metastases, radiation therapy to esophagus from September to October 2018. Started Ramucirumab/Paclitaxel October 2018. HISTORY OF PRESENT ILLNESS: Mr. Ruano was here for cycle #2 day 8 of Paclitaxel chemotherapy. He reports that he has been slightly more short of breath with exertion. His is also concerned about a cough. He did have yellowish sputum before which subsequently became clear after he had a course of antibiotics but he still has a cough and mild shortness of breath. He has also been feeling slightly tired. PHYSICAL EXAMINATION: Temperature 99.2, pulse rate 72 per minute, blood pressure 104/62, pulse ox 97% on room. He was lying comfortably on the chair, not in distress. IMPRESSION AND PLAN: Mr. Ruano's CBC today showed moderate anemia , hemoglobin level 8.3. Since he is slightly fatigued and has increased shortness of breath, I suggested a blood transfusion 1 unit. He also had a chest x-ray which showed no acute findings and showed multiple pulmonary nodules as seen previously with no acute infiltrate. His was concerned about him receiving chemotherapy today. I suggested skipping his chemotherapy today to which he agreed. He will receive his next dose of chemotherapy next week. Electronically Signed by Deborah Kaminski MD, FACP 12/07/2018 08:58 P DD: Deborah Kaminski MD, FACP 11/25/2018 07:27 P DT: narinder 11/26/2018 03:43 P CC: Tono Samuel MD
== END ==
LOC: M ONCR 08:26
PROVIDERS: ATTEND Radiology Radiation Oncology
DX: C15.9 Malignant neoplasm of esophagus, unspecified (principal); C79.51 Secondary malignant neoplasm of bone; Z92.21 Personal history of antineoplastic chemotherapy

== ENCOUNTER 2018-12-07 23:33 | Emergency (ER) | payer MEDICARE ==
[~2018-12-07] VITALS: Ht 172.7 cm; Wt 80.9 kg
[~2018-12-07 23:33] MED LIST changes: -MIRA3350 GT; +MIRA3350 PO; -calcium
[2018-12-08] MEDS ORDERED: calcium (00:06)
[2018-12-08 00:27] LABS: INR 0.93; PROTHROMBIN TIME 12.6 SECONDS (12.1-14.4)
[2018-12-08 00:34] LABS: BASO % 0.5 % (0.0-1.0); EOS % 0.5 % (0.0-3.0); HEMATOCRIT 33.9 % (42.0-52.0); HEMOGLOBIN 11.2 g/dl (13.5-17.5); LYMPH # 0.7 10^3/uL (1.5-4.5); LYMPH % 8.9 % (24.0-44.0); MEAN CORPUSCULAR HEMOGLOBIN 31.8 pg (27.0-33.0); MEAN CORPUSCULAR VOLUME 96.3 fl (80.0-96.0); MONO # 0.3 10^3/uL (0.0-0.8); MONO % 3.1 % (0.0-5.0); NEUTROPHILS % 85.7 % (36.0-66.0); PLATELET COUNT, AUTOMATED 271 10^3/uL (150-450); RED BLOOD COUNT 3.52 10^6/uL (4.30-6.10); WHITE BLOOD COUNT 8.2 10^3/uL (4.0-10.0)
[2018-12-08] MEDS ORDERED: AMIODARONE HCL 150 MG in APPROPRIATE DILUENT 1 EA IV STA (00:36)
[2018-12-08] MEDS ORDERED: METOPROLOL 5 MG/5 ML VIAL IV STA (00:56)
[2018-12-08 00:57] LABS: ALT/SGPT 16 U/L (12-78); BILIRUBIN,TOTAL 0.3 MG/DL (0.2-1.0); BLOOD UREA NITROGEN 17 MG/DL (7-18); CALCIUM LEVEL 8.2 MG/DL (8.8-10.2); CARBON DIOXIDE LEVEL 29 MEQ/L (21-32); CHLORIDE LEVEL 101 MEQ/L (98-107); CK-MB VALUE MASS < 1.0 NG/ML (<3.6); CPK CREATINE PHOSPHOKINASE 29 U/L (39-308); CREATININE FOR GFR 1.27 MG/DL (0.70-1.30); GLOMERULAR FILTRATION RATE > 60.0 (>49); GLUCOSE, FASTING 104 MG/DL (70-100); LIPASE 55 U/L (73-393); MB/CK RELATIVE INDEX 3.45 (< OR =4); POTASSIUM SERUM 4.1 MEQ/L (3.5-5.1); SODIUM LEVEL 136 MEQ/L (136-145); TOTAL PROTEIN 6.4 GM/DL (6.4-8.2); TROPONIN I < 0.02 NG/ML (< 0.10)
[2018-12-08] MEDS ORDERED: METOPROLOL 5 MG/5 ML VIAL As Ordered ONE (00:59)
[2018-12-08 01:01] VITALS: BP 110/53
[2018-12-08] MEDS ORDERED: NS 1,000 ML IV ONE (01:30)
[2018-12-08 02:43] VITALS: BP 113/69
--- NOTE | 2018-12-08 08:39 | REP ---
Chest one-view HISTORY: Chest pain Comparison: 11/25/2018 Ill-defined parenchymal nodules are present in the lungs unchanged compared to the previous study. Linear density is present in the right upper lobe consistent with scar. The heart is normal in size. The pulmonary vasculature is normal in appearance. An Djmbjq-X-Vaai catheter is present. Impression: 1. There are ill-defined parenchymal nodules in the lungs unchanged compared to the previous study. 2. Right upper lobe scarring. Miles. Electronically Signed by Jeremy Díaz MD 12/08/2018 08:30 A
--- NOTE | 2018-12-08 09:06 | ECGEPIP ---
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
--- NOTE | 2018-12-08 09:07 | ECGEPIP ---
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
--- NOTE | 2018-12-08 14:52 | ED PDOC ---
Post-Departure Follow-Up nai trejo faxed formal report of cxr for fu Rohit Mckeon MD Dec 08, 2018 14:52
== END 2018-12-08 02:45 | disposition home or self-care (01) ==
LOC: M ED 23:33
DX: I48.91 Unspecified atrial fibrillation (principal); C15.9 Malignant neoplasm of esophagus, unspecified; C79.51 Secondary malignant neoplasm of bone; C78.00 Secondary malignant neoplasm of unspecified lung

== ENCOUNTER 2018-12-16 10:01 | Inpatient (IN) | payer MEDICARE ==
[~2018-12-16] VITALS: Ht 172.7 cm; Wt 78.6 kg
[~2018-12-16 10:01] MED LIST changes: +calcium
[2018-12-16] MEDS ORDERED: NS 1,000 ML IV SCH (10:05)
[2018-12-16] MEDS ORDERED: NS 500 ML IV ONE (10:15)
[2018-12-16] MEDS ORDERED: ONDANSETRON 4MG/2ML VIAL (J2405) IV ONE (10:30)
[2018-12-16 10:39] LABS: ALBUMIN 2.6 GM/DL (3.2-5.2); BILIRUBIN,DIRECT 0.1 MG/DL (0.0-0.2); BILIRUBIN,TOTAL 0.4 MG/DL (0.2-1.0); CALCIUM LEVEL 8.6 MG/DL (8.8-10.2); CREATININE FOR GFR 1.28 MG/DL (0.70-1.30); GLOMERULAR FILTRATION RATE 59.9 (>49); POTASSIUM SERUM 3.9 MEQ/L (3.5-5.1); TOTAL PROTEIN 6.1 GM/DL (6.4-8.2)
[2018-12-16 10:45] LABS: INR 1.05; PROTHROMBIN TIME 13.8 SECONDS (12.1-14.4)
[2018-12-16] MEDS ORDERED: NS 2,340 ML in APPROPRIATE DILUENT 1 EA IV ONE (10:45)
[2018-12-16] MEDS ORDERED: ISOVUE-370 76% 100ML VIAL (Q9967) As Ordered ONE (10:59)
[2018-12-16] MEDS ORDERED: cefTRIAXone SOD 2 GM in D5W MINI-BAG PLUS 50 ML IV ONE (11:00)
[2018-12-16] MEDS: MORPHINE 2 MG/ML 1ML SYRINGE (J2270) IV PRN ×2 (11:10→13:03)
--- NOTE | 2018-12-16 11:25 | REP ---
CHEST, SINGLE VIEW: Single view of the chest is performed and compared to prior study of 12/08/2018. Scattered ill-defined nodular opacities are again seen with mild bibasilar interstitial prominence. No new infiltrates are seen. Heart is not enlarged. Mediastinal silhouette is unchanged. Right central venous catheter is again noted. Metallic clips are seen in the mediastinal region. IMPRESSION: Chronic lung findings with no new infiltrate. Electronically Signed by Dave Palacios MD 12/17/2018 10:15 A
--- NOTE | 2018-12-16 12:36 | REP ---
CT of the chest with IV contrast for cough: The patient has known esophageal carcinoma. Comparison is 08/22/2018. There is an esophageal stent, this is unchanged. There is esophageal and hypo pharyngeal wall thickening and stricture above the stent, similar to the comparison study. There is a para esophageal mediastinal soft tissue density, as previously. No mediastinal or hilar lymph node enlargement is identified. No active enlargement. There are no acute infiltrates. There is a small left pleural effusion as an interval change. There are multiple lung nodules bilaterally. I suspect these have increased in number. Thoracic aorta is unremarkable. Cardiac size is normal. There is no pericardial effusion. The visualized upper abdomen is unremarkable. Impression: Esophageal carcinoma. Esophageal stent. Esophageal and hypopharynx wall thickening and stricture above the stent, similar to the prior study. Small left pleural effusion, not present previously. Numerous lung metastases. I suspect these have increased in number. Electronically Signed by Dave Patterson MD 12/16/2018 12:27 P
[2018-12-16] MEDS ORDERED: IBUPOTC PO (13:08)
[2018-12-16] MEDS ORDERED: CYCL10TA PO (13:08)
[2018-12-16] MEDS ORDERED: CALC600T60 PO (13:08)
--- NOTE | 2018-12-16 13:42 | REP ---
CT NECK WITH CONTRAST: HISTORY: Esophageal carcinoma. CONTRAST: Isovue-370 100 mL. COMPARISON: 12/08/2017 Calcifications are present in the tonsils. This is secondary to previous inflammatory disease. The naso-, erlin-, and hypopharynx, larynx, and subglottic trachea are otherwise normal in appearance. The salivary and thyroid glands are normal in size and density . Small lymph nodes less than 1 cm in size are present in the internal jugular chains, posterior triangles, submandibular and submental areas. Atherosclerotic calcification is present at the right carotid bifurcation. Degenerative change is present in the cervical spine. Small parenchymal nodules are present in the lung apices. Mucosal thickening is present in the left ethmoid sinus. Soft-tissue density is present in the nasal passage consistent with polyps. An esophageal stent is present. A soft tissue mass is present in the esophagus superior to the stent. There is almost complete occlusion of the esophageal lumen. Paraesophageal soft tissue density is present in the upper mediastinum. IMPRESSION:1. There is a mass in the esophagus in the upper mediastinum. There is almost complete occlusion of the esophageal lumen. An esophageal stent is present distal to the mass. 2. There is no neck mass or adenopathy. 3. There are small parenchymal nodules in the lung apices. Electronically Signed by Jeremy Díaz MD 12/16/2018 01:44 P
[2018-12-16] MEDS ORDERED: ONDANSETRON 4 MG TAB (S0181) PO PRN (15:15)
[2018-12-16] MEDS ORDERED: CYCLOBENZAPRINE 10 MG TAB PO PRN (15:15)
[2018-12-16] MEDS ORDERED: LevoFLOXacin IV 500 MG in APPROPRIATE DILUENT 1 EA IV ONE (15:30)
[2018-12-16] MEDS: NS 1,000 ML IV SCH ×2 (15:44→21:48)
--- NOTE | 2018-12-16 17:56 | HPE ---
DATE OF ADMISSION: 12/16/2018 This is a 68-year-old male with a past medical history of stage IV esophageal carcinoma, status post stent placement, history of hypothyroidism, chronic kidney disease (CKD) III, atrial fibrillation who presents to the emergency room from Dr. Diana Yi' office due to dysphagia. According to the patient, recently he has been having difficulty swallowing liquids but has been okay with solids. Patient also has apparently lost approximately 12 pounds in the last month. Dr. Wilson did the last esophagogastroduodenoscopy (EGD) in September 2018. Patient does also have general weakness and a chronic cough and has not been using his gastrostomy (G) tube much with his Ensure that he normally takes, because he had been trying to have his intake in oral form, so he will be admitted for further management. PAST MEDICAL HISTORY: 1. Atrial fibrillation. .2. Hypothyroidism. 3. Stage IV esophageal carcinoma, status post stent placement. 4. History of hypothyroidism. 5. CKD III. 6. Gastroesophageal reflux disease (GERD). ALLERGIES: He has no known drug allergies. FAMILY HISTORY: Noncontributory. SOCIAL HISTORY: Patient denies tobacco, alcohol, or illicit drugs. HOME MEDICATIONS: - amiodarone 200 mg orally daily - aspirin 81 mg orally daily - calcium carbonate 600 mg orally daily - cyclobenzaprine 10 mg orally daily as needed - ibuprofen 400 mg orally four times a day as needed - Synthroid 25 mcg orally daily - multivitamin one tablet orally daily - Zofran 4 mg orally every 6 hours as needed - pantoprazole 40 mg orally daily - MiraLax 17 grams orally at bedtime REVIEW OF SYSTEMS: Negative for all10 major systems except what is mentioned in the history of present illness (HPI). VITAL SIGNS: Blood pressure 130/71, heart rate 79 and regular, respiratory rate is 19, temperature is 100, oxygen saturation is 98% in room air. HEAD: Normocephalic, atraumatic. NECK: Supple. No jugular venous distention (JVD). LUNGS: Clear to auscultation. S1, S2 audible. No murmurs appreciated. ABDOMEN: Soft. Positive bowel sounds. No pedal edema. SKIN: Intact. NEUROLOGIC: Patient awake, alert, oriented times three. LABORATORY DATA: Sodium is 139, potassium is 3.9, chloride 102, CO2 is 30, BUN 19, creatinine 1.28, lactic acid is 1, fasting glucose is 97. Lipase 58. Albumin is 2.6. CBC is pending. IMPRESSION: 1. Dysphagia. 2. Malnutrition. 3. Acute bronchitis. PLAN: Patient will be admitted to the medical/surgical floor. Will start the patient on intravenous (IV) Levaquin. We do not have a complete blood count (CBC) yet. His urinalysis is not suggestive of a urinary tract infection, yet he does have a temperature of 100, so Levaquin will be given empirically, likely for acute bronchitis. As far as malnutrition is concerned, we do not have gastrointestinal (GI) services today. Did speak with Dr. Rocha personally, and he feels that there is absolutely nothing he can do as far as scoping is concerned. His recommendations is to have Dr. Wilson see the patient as an outpatient when available for the management of his dysphagia. In the meantime, I am going to start him on Ensure and put his caloric intake completely through is percutaneous endoscopic gastrostomy (PEG) and keep him nothing by mouth. I will have a dietary consult also ordered to maximize his caloric intake through his PEG tube. I will continue his preadmission medications and will continue his care on the medical/surgical floor.
[2018-12-16 17:57] LABS: HEMATOCRIT 30.5 % (42.0-52.0); HEMOGLOBIN 9.8 g/dl (13.5-17.5); MEAN CORPUSCULAR HEMOGLOBIN 31.3 pg (27.0-33.0); MEAN CORPUSCULAR HGB CONC 32.1 g/dl (32.0-36.5); MEAN CORPUSCULAR VOLUME 97.4 fl (80.0-96.0); PLATELET COUNT, AUTOMATED 201 10^3/uL (150-450); RED BLOOD COUNT 3.13 10^6/uL (4.30-6.10); WHITE BLOOD COUNT 4.2 10^3/uL (4.0-10.0)
[2018-12-16] MEDS: MORPHINE 4 MG/ML 1ML VIAL/SYRINGE (J2270) IV PRN (19:48)
[2018-12-16 20:35] VITALS: BP 156/83
[2018-12-16] MEDS: AMIODARONE 200 MG TAB (PACERONE) PO SCH (21:38)
[2018-12-16] MEDS: ASPIRIN 81 MG ENTERIC TAB PO SCH (21:38)
[2018-12-16] MEDS: PANTOPRAZOLE 40MG TAB (PROTONIX) PO SCH (21:39)
[2018-12-16] MEDS: MULTIVITAMINS/MINERALS THERAP 1 TAB PO SCH (21:39)
[2018-12-16] MEDS: MIRALAX *UNIT DOSE* 17GM PACKET PO SCH (21:48)
--- NOTE | 2018-12-17 00:46 | ECGEPIP ---
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
[2018-12-17] MEDS: MORPHINE 4 MG/ML 1ML VIAL/SYRINGE (J2270) IV PRN ×3 (05:47→18:16)
[2018-12-17] MEDS: LEVOTHYROXINE 25MCG TABLET (0.025MG) PO SCH (05:47)
[2018-12-17 06:00] VITALS: BP 124/88
[2018-12-17 06:11] LABS: HEMATOCRIT 30.2 % (42.0-52.0); HEMOGLOBIN 9.7 g/dl (13.5-17.5); MEAN CORPUSCULAR HEMOGLOBIN 31.1 pg (27.0-33.0); MEAN CORPUSCULAR HGB CONC 32.1 g/dl (32.0-36.5); MEAN CORPUSCULAR VOLUME 96.8 fl (80.0-96.0); PLATELET COUNT, AUTOMATED 241 10^3/uL (150-450); RED BLOOD COUNT 3.12 10^6/uL (4.30-6.10); WHITE BLOOD COUNT 6.2 10^3/uL (4.0-10.0)
[2018-12-17] MEDS ORDERED: PILL CRUSHER/CUTTER 1 EACH XX PRN (06:15)
[2018-12-17 06:45] LABS: ALBUMIN 2.3 GM/DL (3.2-5.2); ALT/SGPT 14 U/L (12-78); BILIRUBIN,TOTAL 0.3 MG/DL (0.2-1.0); BLOOD UREA NITROGEN 15 MG/DL (7-18); CALCIUM LEVEL 7.9 MG/DL (8.8-10.2); CARBON DIOXIDE LEVEL 22 MEQ/L (21-32); CHLORIDE LEVEL 105 MEQ/L (98-107); CREATININE FOR GFR 1.08 MG/DL (0.70-1.30); GLOMERULAR FILTRATION RATE > 60.0 (>49); GLUCOSE, FASTING 69 MG/DL (70-100); POTASSIUM SERUM 4.1 MEQ/L (3.5-5.1); SODIUM LEVEL 140 MEQ/L (136-145); TOTAL PROTEIN 5.7 GM/DL (6.4-8.2)
[2018-12-17 06:50] LABS: EOSINOPHILS 1 % (0-5); LYMPHOCYTES 10 % (16-52); MONOCYTES 12 % (0-8); NEUTROPHILS 77 % (35-75)
[2018-12-17 06:51] LABS: PLATELET ESTIMATE NORMAL (NORMAL)
[2018-12-17] MEDS: PANTOPRAZOLE 40MG TAB (PROTONIX) PO SCH (10:48)
[2018-12-17] MEDS: NS 1,000 ML IV SCH ×2 (10:48→19:30)
[2018-12-17] MEDS: AMIODARONE 200 MG TAB (PACERONE) PO SCH (10:48)
[2018-12-17] MEDS: ASPIRIN 81 MG ENTERIC TAB PO SCH (10:48)
[2018-12-17] MEDS: MULTIVITAMINS/MINERALS THERAP 1 TAB PO SCH (10:48)
[2018-12-17 14:00] VITALS: BP 125/90
[2018-12-17] MEDS: LevoFLOXacin IV 500 MG in APPROPRIATE DILUENT 1 EA IV SCH (16:11)
[2018-12-17] MEDS: MORPHINE 10MG/0.5ML ORAL CONCENTRATE SOLUTION U/D PEG PRN (16:12)
[2018-12-17] MEDS ORDERED: ONDANSETRON 4MG/2ML VIAL (J2405) As Ordered ONE (18:12)
[2018-12-17] MEDS: ONDANSETRON 4MG/2ML VIAL (J2405) IV PRN (18:16)
[2018-12-17] MEDS ORDERED: METOCLOPRAMIDE INJ 10MG/2ML VIAL (J2765) IV PRN (19:15)
[2018-12-17] MEDS: SCOPOLAMINE 1MG TRANSDERMAL PATCH TOP SCH (19:54)
[2018-12-17 19:58] VITALS: BP 109/74
[2018-12-17 20:18] VITALS: BP 105/71
[2018-12-17 20:45] VITALS: BP 97/63
[2018-12-17] MEDS: MIRALAX *UNIT DOSE* 17GM PACKET PO SCH (21:00)
--- NOTE | 2018-12-17 21:37 | IPNPDOC ---
Text Note Date of Service The patient was seen on 12/17/18. NOTE SUBJECTIVE: Patient complains of severe pain in the right shoulder blade and the right chest wall causing difficulty in moving the arm. Also continues to have coughing, generalized malaise, nausea. PHYSICAL EXAM: VITAL SIGNS:As below HEAD: Normocephalic, atraumatic. NECK: Supple. No jugular venous distention (JVD). LUNGS: Clear to auscultation. S1, S2 audible. No murmurs appreciated. ABDOMEN: Soft. Positive bowel sounds. Extremities: No pedal edema. SKIN: Intact. NEUROLOGIC: Patient awake, alert, oriented times three. Labs and Radiology: reviewed Assessment and Plan: This is a 68-year-old male with a past medical history of stage IV esophageal carcinoma, on second line chemotherapy was supposed to get cycle 3 today, radiation in sepOct 2018 , status post stent placement, hypothyroidism, chronic kidney disease (CKD) III, atrial fibrillation who presents to the emergency room from Dr. Diana Yi' office due to dysphagia. According to the patient, recently he has been having difficulty swallowing liquids but has been okay with solids. Patient also has apparently lost approximately 12 pounds in the last month. Dr. Wilson did the last esophagogastroduodenoscopy (EGD) in September 2018. Patient also complained of general malaise and a chronic cough and has not been using his gastrostomy (G) tube much with his Ensure that he normally takes, because he had been trying to have his intake in oral form, so he will be admitted for further management. Dysphagia. due to esophageal mass and stricture above the esophageal stent with complete occlusion of the esophagus. there is also paraesophageal mass in the mediastinum will keep NPO, continue IVF. will consult dr Wilson when available. use only PEG tube. 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 HER2 positive, currently on Ramucirumab/Paclitaxel begun October 2018 as secon d-line treatment. Original metastatic diagnosis December 2017 with adenocarcinoma on esophageal nodule biopsy, HER2 positive. Multiple lung nodules, right lung biopsy confirming moderate to poorly differentiated adenocarcinoma consistent with esophageal primary. Status post cisplatin/5-FU/traztuzumab treatment December 2017 with response demonstrated in May, completed total six cycles May 2018 and continued on single-agent trastuzumab until August 2018. However, restaging in late July 2018 showed disease progression in lung metastases. He received radiation to the esophagus September to October 2018 and started ramucirumab/paclitaxel in October. poor prognosis. Malnutrition. continue ensure, dietary consult for estimation of calorie intake Intake through PEG tube Acute bronchitis. levofloxacin blood cultures ordered resp panel is negative. Atrial fibrillation continue amiodarone and ASA not on any anticoagulation CKD stage 3 stable. Hypothyroid continue synthroid DVT prophylaxis ordered. VS,Fishbone, I+O VS, Fishbone, I+O Laboratory Tests 12/16/18 08:24 12/16/18 17:41 Red Blood Count 3.13 L, Mean Corpuscular Volume 97.4 H, Mean Corpuscular Hemoglobin 31.3, Mean Corpuscular Hemoglobin Concent 32.1, Red Cell Distribution Width 16.1 H Vital Signs Date Time Temp Pulse Resp B/P (MAP) Pulse Ox O2 Delivery O2 Flow Rate FiO2 12/16/18 20:40 18 12/16/18 20:35 99.2 101 156/83 (107) 98 2.0 12/16/18 19:46 Nasal Cannula I&O- Last 24 Hours up to 6 AM 12/17/18 06:00 Intake Total 2390 ml Output Total 0 ml Balance 2390 ml ABHI BLANCO MD Dec 17, 2018 01:11
[2018-12-17 23:00] VITALS: BP 105/74
[2018-12-18] MEDS: MORPHINE 10MG/0.5ML ORAL CONCENTRATE SOLUTION U/D PEG PRN ×2 (02:21→20:59)
[2018-12-18] MEDS: NS 1,000 ML IV SCH ×2 (05:43→15:06)
[2018-12-18] MEDS: LEVOTHYROXINE 25MCG TABLET (0.025MG) PO SCH (05:43)
[2018-12-18 05:54] VITALS: BP 103/64
[2018-12-18] MEDS: MULTIVITAMINS/MINERALS THERAP 1 TAB PO SCH (09:22)
[2018-12-18] MEDS: ASPIRIN 81 MG ENTERIC TAB PO SCH (09:22)
[2018-12-18] MEDS: PANTOPRAZOLE 40MG INJ (PROTONIX) (C9113) IV SCH (09:22)
[2018-12-18] MEDS: AMIODARONE 200 MG TAB (PACERONE) PO SCH (09:22)
[2018-12-18] MEDS: MORPHINE 4 MG/ML 1ML VIAL/SYRINGE (J2270) IV PRN (11:10)
[2018-12-18] MEDS: ONDANSETRON 4MG/2ML VIAL (J2405) IV PRN ×2 (11:11→20:58)
[2018-12-18 14:00] VITALS: BP 112/73
[2018-12-18] MEDS: LevoFLOXacin IV 500 MG in APPROPRIATE DILUENT 1 EA IV SCH (15:06)
[2018-12-18] MEDS: MIRALAX *UNIT DOSE* 17GM PACKET PO SCH (20:58)
[2018-12-18 21:00] VITALS: BP 128/74
--- NOTE | 2018-12-18 23:27 | IPNPDOC ---
Text Note Date of Service The patient was seen on 12/18/18. NOTE SUBJECTIVE: Right shoulder blade and right sided chest pain is better today after morphine. Had emesis after starting tube feeding yesterday. pateint says he was given 2 cans back to back that was too much for him caused a lot of pressure in his stomach and everything just came up. Continues to have cough with expectoration. This am feeling better to nausea or vomiting. PHYSICAL EXAM: VITAL SIGNS:As below HEAD: Normocephalic, atraumatic. NECK: Supple. No jugular venous distention (JVD). LUNGS: Clear to auscultation. S1, S2 audible. No murmurs appreciated. ABDOMEN: Soft. Positive bowel sounds. Extremities: No pedal edema. SKIN: Intact. NEUROLOGIC: Patient awake, alert, oriented times three. Labs and Radiology: reviewed Assessment and Plan: This is a 68-year-old male with a past medical history of stage IV esophageal carcinoma, on second line chemotherapy was supposed to get cycle 3 today, radiation in sepOct 2018 , status post stent placement, hypothyroidism, chronic kidney disease (CKD) III, atrial fibrillation who presents to the emergency room from Dr. Diana Yi' office due to dysphagia. According to the patient, recently he has been having difficulty swallowing liquids but has been okay with solids. Patient also has apparently lost approximately 12 pounds in the last month. Dr. Wilson did the last esophagogastroduodenoscopy (EGD) in September 2018. Patient also complained of general malaise and a chronic cough and has not been using his gastrostomy (G) tube much with his Ensure that he normally takes, bec ause he had been trying to have his intake in oral form, so he will be admitted for further management. Dysphagia. due to esophageal mass and stricture above the esophageal stent with complete occlusion of the esophagus. there is also paraesophageal mass in the mediastinum will keep NPO, continue IVF. will consult dr Wilson when available. use only PEG tube. 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 HER2 positive, currently on Ramucirumab/Paclitaxel begun October 2018 as second -line treatment. Original metastatic diagnosis December 2017 with adenocarcinoma on esophageal nodule biopsy, HER2 positive. Multiple lung nodules, right lung biopsy confirming moderate to poorly differentiated adenocarcinoma consistent with esophageal primary. Status post cisplatin/5-FU/traztuzumab treatment December 2017 with response demonstrated in May, completed total six cycles May 2018 and continued on single-agent trastuzumab until August 2018. However, restaging in late July 2018 showed disease progression in lung metastases. He received radiation to the esophagus September to October 2018 and started ramucirumab/paclitaxel in October. poor prognosis. Malnutrition. continue ensure, dietary consult for estimation of calorie intake Intake through PEG tube Acute bronchitis. levofloxacin blood cultures ordered resp panel is negative. Atrial fibrillation continue amiodarone and ASA not on any anticoagulation CKD stage 3 stable. Hypothyroid continue synthroid DVT prophylaxis ordered. VS,Fishbone, I+O VS, Fishbone, I+O Vital Signs Date Time Temp Pulse Resp B/P (MAP) Pulse Ox O2 Delivery O2 Flow Rate FiO2 12/18/18 21:29 18 3.0 12/18/18 21:00 98.0 90 128/74 (92) 93 12/16/18 19:46 Nasal Cannula I&O- Last 24 Hours up to 6 AM 12/18/18 06:00 Intake Total 3492 ml Output Total 750 ml Balance 2742 ml ABHI BLANCO MD Dec 18, 2018 23:27
[2018-12-19] MEDS: NS 1,000 ML IV SCH (03:03)
[2018-12-19 04:55] VITALS: BP 120/81
[2018-12-19] MEDS: AMIODARONE 200 MG TAB (PACERONE) PO SCH (05:36)
[2018-12-19] MEDS: MORPHINE 4 MG/ML 1ML VIAL/SYRINGE (J2270) IV PRN (05:36)
[2018-12-19] MEDS: LEVOTHYROXINE 25MCG TABLET (0.025MG) PO SCH (05:36)
[2018-12-19] MEDS: ONDANSETRON 4MG/2ML VIAL (J2405) IV PRN ×2 (05:36→17:40)
[2018-12-19 08:00] VITALS: BP 109/78
[2018-12-19] MEDS: ASPIRIN 81 MG ENTERIC TAB PO SCH (09:24)
[2018-12-19] MEDS: PANTOPRAZOLE 40MG INJ (PROTONIX) (C9113) IV SCH (09:24)
[2018-12-19] MEDS: MULTIVITAMINS/MINERALS THERAP 1 TAB PO SCH (09:24)
[2018-12-19 10:15] VITALS: BP 148/100
[2018-12-19] MEDS: cefTRIAXone SOD 1 GM in D5W MINI-BAG PLUS 50 ML IV SCH (11:19)
[2018-12-19 12:11] LABS: BLOOD UREA NITROGEN 14 MG/DL (7-18); CALCIUM LEVEL 7.7 MG/DL (8.8-10.2); CARBON DIOXIDE LEVEL 22 MEQ/L (21-32); CHLORIDE LEVEL 107 MEQ/L (98-107); CREATININE FOR GFR 0.97 MG/DL (0.70-1.30); GLOMERULAR FILTRATION RATE > 60.0 (>49); GLUCOSE, FASTING 99 MG/DL (70-100); POTASSIUM SERUM 4.2 MEQ/L (3.5-5.1); SODIUM LEVEL 139 MEQ/L (136-145)
[2018-12-19 12:25] LABS: BASO # 0.1 10^3/uL (0.0-0.2); BASO % 0.5 % (0.0-1.0); EOS # 0.1 10^3/uL (0.0-0.50); EOS % 0.6 % (0.0-3.0); HEMATOCRIT 31.8 % (42.0-52.0); HEMOGLOBIN 10.1 g/dl (13.5-17.5); LYMPH # 0.3 10^3/uL (1.5-4.5); LYMPH % 2.8 % (24.0-44.0); MEAN CORPUSCULAR HEMOGLOBIN 30.8 pg (27.0-33.0); MEAN CORPUSCULAR HGB CONC 31.8 g/dl (32.0-36.5); MONO # 0.8 10^3/uL (0.0-0.8); MONO % 6.9 % (0.0-5.0); NEUTROPHILS # 10.1 10^3/uL (1.8-7.7); NEUTROPHILS % 86.8 % (36.0-66.0); PLATELET COUNT, AUTOMATED 228 10^3/uL (150-450); RED BLOOD COUNT 3.28 10^6/uL (4.30-6.10); WHITE BLOOD COUNT 11.6 10^3/uL (4.0-10.0)
--- NOTE | 2018-12-19 12:57 | ECGEPIP ---
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
[2018-12-19 14:00] VITALS: BP 109/60
[2018-12-19] MEDS: MORPHINE 10MG/0.5ML ORAL CONCENTRATE SOLUTION U/D PEG PRN ×2 (17:40→20:35)
[2018-12-19 20:00] VITALS: BP 102/69
[2018-12-19] MEDS: MIRALAX *UNIT DOSE* 17GM PACKET PO SCH (21:00)
--- NOTE | 2018-12-19 23:42 | IPNPDOC ---
Text Note Date of Service The patient was seen on 12/19/18. NOTE SUBJECTIVE: Patient feels very unwell this morning with chills and tremors, He is very tachycardic, EKG showed sinus tachycardia. He was able to tolerate only 3 cans of feed yesterday , during the fourth can he became very nauseous and full and refused it. Continues to have cough with expectoration. Had a fever of 100.7 this am. Did speak to about hospice she is going to discuss it with the patient. PHYSICAL EXAM: VITAL SIGNS:As below HEAD: Normocephalic, atraumatic. NECK: Supple. No jugular venous distention (JVD). LUNGS: Clear to auscultation. S1, S2 audible. No murmurs appreciated. ABDOMEN: Soft. Positive bowel sounds. Extremities: No pedal edema. SKIN: Intact. NEUROLOGIC: Patient awake, alert, oriented times three. Labs and Radiology: reviewed Assessment and Plan: This is a 68-year-old male with a past medical history of stage IV esophageal carcinoma, on second line chemotherapy was supposed to get cycle 3 today, radiation in sepOct 2018 , status post stent placement, hypothyroidism, chronic kidney disease (CKD) III, atrial fibrillation who pres ents to the emergency room from Dr. Diana Yi' office due to dysphagia. According to the patient, recently he has been having difficulty swallowing liquids but has been okay with solids. Patient also has apparently lost approximately 12 pounds in the last month. Dr. Wilson did the last esophagogastroduodenoscopy (EGD) in September 2018. Patient also complained of general malaise and a chronic cough and has not been using his gastrostomy (G) tube much with his Ensure that he normally takes, bec ause he had been trying to have his intake in oral form, so he will be admitted for further management. Dysphagia. due to esophageal mass and stricture above the esophageal stent with complete occlusion of the esophagus. there is also paraesophageal mass in the mediastinum will keep NPO will consult dr Wilson when available. use only PEG tube. Sinus tachycardia having low grade fever and infection going on may be due to cancer itself also if continue to be tachycardia and febrile will expand antibiotic coverage. 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 HER2 positive, currently on Ramucirumab/Paclitaxel begun October 2018 as se cond-line treatment. Original metastatic diagnosis December 2017 with adenocarcinoma on esophageal nodule biopsy, HER2 positive. Multiple lung nodules, right lung biopsy confirming moderate to poorly differentiated adenocarcinoma consistent with esophageal primary. Status post cisplatin/5-FU/traztuzumab treatment December 2017 with response demonstrated in May, completed total six cycles May 2018 and continued on single-agent trastuzumab until August 2018. However, restaging in late July 2018 showed disease progression in lung metastases. He received radiation to the esophagus September to October 2018 and started ramucirumab/paclitaxel in October. poor prognosis. Malnutrition. continue ensure, dietary consult for estimation of calorie intake Intake through PEG tube Acute bronchitis. levofloxacin blood cultures ordered resp panel is negative. Atrial fibrillation continue amiodarone and ASA not on any anticoagulation CKD stage 3 stable. Hypothyroid continue synthroid DVT prophylaxis ordered. VS,Fishbone, I+O VS, Fishbone, I+O Laboratory Tests 12/19/18 11:21 Calcium Level 7.7 L 12/19/18 12:14 Red Blood Count 3.28 L, Mean Corpuscular Volume 97.0 H, Mean Corpuscular Hemoglobin 30.8, Mean Corpuscular Hemoglobin Concent 31.8 L, Red Cell Distribution Width 16.3 H, Neutrophils (%) (Auto) 86.8 H, Lymphocytes (%) (Auto) 2.8 L, Monocytes (%) (Auto) 6.9 H, Eosinophils (%) (Auto) 0.6, Basophils (%) (Auto) 0.5, Neutrophils # (Auto) 10.1 H, Lymphocytes # (Auto) 0.3 L, Monocytes # (Auto) 0.8, Eosinophils # (Auto) 0.1, Basophils # (Auto) 0.1 Vital Signs Date Time Temp Pulse Resp B/P (MAP) Pulse Ox O2 Delivery O2 Flow Rate FiO2 12/19/18 21:05 18 3.0 12/19/18 20:00 99.4 132 102/69 (80) 95 12/16/18 19:46 Nasal Cannula I&O- Last 24 Hours up to 6 AM 12/19/18 06:00 Intake Total 1448 ml Output Total 800 ml Balance 648 ml ABHI BLANCO MD Dec 19, 2018 23:42
[2018-12-20 04:00] VITALS: BP 119/74
[2018-12-20] MEDS: MORPHINE 4 MG/ML 1ML VIAL/SYRINGE (J2270) IV PRN (04:27)
[2018-12-20] MEDS: ONDANSETRON 4MG/2ML VIAL (J2405) IV PRN (04:28)
[2018-12-20] MEDS: LEVOTHYROXINE 25MCG TABLET (0.025MG) PO SCH (06:40)
[2018-12-20 07:05] LABS: BASO % 0.3 % (0.0-1.0); EOS # 0.1 10^3/uL (0.0-0.50); EOS % 1.1 % (0.0-3.0); HEMATOCRIT 29.7 % (42.0-52.0); HEMOGLOBIN 9.5 g/dl (13.5-17.5); LYMPH # 0.5 10^3/uL (1.5-4.5); LYMPH % 4.4 % (24.0-44.0); MEAN CORPUSCULAR HEMOGLOBIN 30.8 pg (27.0-33.0); MEAN CORPUSCULAR VOLUME 96.4 fl (80.0-96.0); MONO # 1.1 10^3/uL (0.0-0.8); MONO % 9.9 % (0.0-5.0); NEUTROPHILS # 9.3 10^3/uL (1.8-7.7); NEUTROPHILS % 81.8 % (36.0-66.0); PLATELET COUNT, AUTOMATED 220 10^3/uL (150-450); RED BLOOD COUNT 3.08 10^6/uL (4.30-6.10); WHITE BLOOD COUNT 11.3 10^3/uL (4.0-10.0)
[2018-12-20 07:28] LABS: BLOOD UREA NITROGEN 15 MG/DL (7-18); CALCIUM LEVEL 7.8 MG/DL (8.8-10.2); CARBON DIOXIDE LEVEL 31 MEQ/L (21-32); CHLORIDE LEVEL 106 MEQ/L (98-107); CREATININE FOR GFR 1.03 MG/DL (0.70-1.30); GLOMERULAR FILTRATION RATE > 60.0 (>49); GLUCOSE, FASTING 104 MG/DL (70-100); SODIUM LEVEL 141 MEQ/L (136-145)
[2018-12-20] MEDS: MORPHINE 10MG/0.5ML ORAL CONCENTRATE SOLUTION U/D PEG PRN ×3 (08:49→20:26)
[2018-12-20] MEDS: PANTOPRAZOLE 40MG INJ (PROTONIX) (C9113) IV SCH (08:50)
[2018-12-20] MEDS: MULTIVITAMINS/MINERALS THERAP 1 TAB PO SCH (08:50)
[2018-12-20] MEDS: AMIODARONE 200 MG TAB (PACERONE) PO SCH (08:50)
[2018-12-20] MEDS: ASPIRIN 81 MG ENTERIC TAB PO SCH (08:50)
[2018-12-20] MEDS: cefTRIAXone SOD 1 GM in D5W MINI-BAG PLUS 50 ML IV SCH (10:33)
[2018-12-20] MEDS ORDERED: SODIUM CHLORIDE 0.9% 1000ML IV ONE (11:00)
[2018-12-20 14:00] VITALS: BP 116/76
[2018-12-20] MEDS: SCOPOLAMINE 1MG TRANSDERMAL PATCH TOP SCH (18:44)
--- NOTE | 2018-12-20 18:48 | CR.PDOC ---
General Date of Consultation: Dec 20, 2018 Referring Provider: ABHI FERREIRA MD Attending Physician: TIM BOYER MD Consultation Primary physician/ hospitalist: Dr. Ferreira Reason for consult: Dysphagia HPI: 68-year-old male patient with paroxysmal atrial fibrillation (currently on amiodarone and not on anticoagulation), hypothyroidism, CKD stage III, chronic acid reflux, esophageal adenocarcinoma - stage IV with bilateral lung metastases, s/p PEG tube and esophageal colored metallic stent placement in August 2018, s/p radiation therapy and on chemotherapy was admitted from oncology clinic for recurrent dysphagia. Patient reports having gradually worsening dysphagia to liquid foods more than solids, associated with feeling of choking and worsening cough with yellow expectoration. Patient during this hospitalization had CT chest and neck. Patient was having fever and tachycardia episodes, and being treated with antibiotics. Patient denies any other symptoms Pertinent negative GI symptoms: Patient denies nausea, diarrhea, abdominal pain, loss of appetite, early satiety or unintentional weight loss. No history of hematemesis, melena or hematochezia. Patient reports regular bowel movements. Review of Systems: GI: as stated above CVS: No chest pain, No palpitations, No leg swelling. RS: No Shortness of breath, No Wheezing, no cough RINKMAN: No dizziness, No motor weakness, No sensory problems Hematology: No bruising, No gum bleeding, Musculoskeletal: No joint pain, ambulating well. Skin: No rash : No hematuria, No burning sensation of the urine ENT: No ear discharge/ pain, No dysphagia. Eyes: No photophobia. Home medications: reviewed. Antithrombotic agents -none Medical h/o: As above. Surgical h/o: None on abdomen. Social h/o: Alcohol-denies, tobacco-denies, IVDA/ drugs-denies. Family h/o of GI cancers -noncontributory Prior Endoscopies: --- EGD -last in August 2018 with esophageal stent placement. --- Colonoscopy - screening in 2018. Prior GI evaluation: Previously seen in [facility]. Exam: Vitals: reviewed General: Alert and oriented x 3, not in distress HEENT: NO pallor, no icterus. Normal oropharynx, NO cervical lymph nodes. Chest: symmetric with bilateral air entry, with coarse crackles. CVS: S1, S2 heard, normal, no murmurs. Abdomen: non-distended, soft, non-tender, no palpable masses, normal bowel sounds heard. PEG tube in place. Rectal exam: Patient refused Extremities: no pedal edema, pulses palpable. RINKMAN: no focal motor or sensory deficits. Moves all extremities Skin: no rash. Labs: reviewed. Imaging tests: reviewed Impression: - Dysphagia with prior know esophageal adenocarcinoma stage IV, with covered esophageal stent placement in past and imaging tests showing mass going above the stent with obstruction proximal to the stent. Needs further evaluation. - Fever, tachycardiac with cough and expectoration -- rule out pulmonary infection vs aspiration pneumonia vs TEF ( due to h/o esophageal cancer). Recommendations: - Patient educated about the test results, possible differential diagnoses and All questions answered. - Workup for sepsis and pneumonia as per primary team. - We will review with oncology regarding prognosis and goals of care. - Continue PEG tube feeding for now. - Obtain esophagogram to further evaluate obstruction. - Based on above, will plan for EGD with dilation and longer stent placement. Patient is educated about the procedure procedure, indications, risks (bleeding, perforation, infection, hypotension, respiratory depression, allergy, need for endotracheal intubation, surgery, colostomy, cardiac arrest, even ), benefits, limitations (e.g., recurrent obstruction), and all other alternatives (including no intervention) were explained to the patient who understood and agreed for the procedure. - Patient is also educated the esophageal stent is only for palliative measures and will not affect the course of the underlying cancer. Plan of care discussed with patient and primary team. Patient verbalized understanding and agreed with the plan. Laboratory Data CBC/BMP Laboratory Tests 12/20/18 06:55 Allergies Coded Allergies: Banana (Verified Allergy, Intermediate, hives, 12/07/18) Home Medications Scheduled Amiodarone HCl (Amiodarone HCl) 200 Mg Tab, 200 MG PO DAILY, (Reported) STATES THAT THIS MEDICATION WAS INCREASED TO QID BY DR VOGT - CALLED OFFICE TO VERIFY AND THEY DON'T HAVE RECORD OF THIS CHANGE. LAST OFFICE VISIT WAS IN SEPTEMBER Aspirin (Aspirin 81) 81 Mg Tab, 81 MG PO DAILY, (Reported) Calcium Carbonate (Calcium) 600 Mg Tab, 600 MG PO DAILY, (Reported) Levothyroxine Sodium (Synthroid) 25 Mcg Tab, 25 MCG PO DAILY, (Reported) Multivitamins (Multivitamin Adults) 1 Tab Tab, 1 TAB PO DAILY, (Reported) Pantoprazole Sodium (Pantoprazole Sodium) 40 Mg Tab, 40 MG PO DAILY, (Reported) Polyethylene Glycol (Miralax) 1 Pow Pow, 17 GRAM PO QHS, (Reported) Scheduled PRN Cyclobenzaprine HCl (Cyclobenzaprine HCl) 10 Mg Tab, 10 MG PO DAILY PRN for MUSCLE SPASMS, (Reported) Ibuprofen (Ibuprofen) 200 Mg Tab, 400 MG PO QID PRN for PAIN, (Reported) Ondansetron HCl (Ondansetron HCl) 4 Mg Tab, 4 MG PO Q6H PRN for NAUSEA, (Reported) TIM BOYER MD Dec 20, 2018 18:48
[2018-12-20] MEDS: MIRALAX *UNIT DOSE* 17GM PACKET PO SCH (20:25)
--- NOTE | 2018-12-20 20:46 | ECHO ---
DATE OF STUDY: 12/20/2018 REFERRING PHYSICIAN: Dr. Brisa Ferreira INDICATION: Abnormal electrocardiogram (ECG). HEIGHT: 173 cm WEIGHT: 78 kg 2D MEASUREMENTS: Ventricular septum: 1.04 cm Posterior wall: 1.04 cm Left ventricle diastole: 5.2 cm Left atrium: 2.9 cm Aortic root: 3.3 cm Aortic anulus: 1.9 cm Left atrial volume index: 26 Inferior vena cava: 2.0 cm DOPPLER MEASUREMENTS: Aortic valve velocity: 118 cm/s LVOT velocity: 105 cm/s LVOT VTI: 18.5 cm Mitral E velocity: 97.5 cm/s Mitral A velocity: 90.2 cm/s Mitral deceleration time: 261 ms Pulmonary artery systolic pressure: 39 mmHg MITRAL ANNULAR TISSUE DOPPLER: E prime septal: 6.4 cm/s E prime lateral: 7.1 cm/s DESCRIPTION: Rhythm was sinus. Image quality was fair. No pericardial effusion. This was a 2D, M-mode, color flow Doppler, and pulse wave Doppler examination and included mitral annular tissue Doppler. CONCLUSIONS: 1. Normal left ventricle internal dimensions and wall thickness. Normal regional left ventricle (LV) wall motion and wall thickening. Normal LV systolic function. Normal LV diastolic function. 2. Very mild mitral annular calcification. No mitral regurgitation. 3. Suggestive of mild elevation of pulmonary artery systolic pressure. 4. Otherwise, normal-appearing echocardiogram Doppler features.
[2018-12-20 22:00] VITALS: BP 112/71
--- NOTE | 2018-12-20 23:47 | IPNPDOC ---
Text Note Date of Service The patient was seen on 12/20/18. NOTE SUBJECTIVE: Patient feels a little better this am . No nausea or vomiting. No fever this am . Continues to have blood tinged expectoration. Was tachycardic to 130s in the morning. Changed diet to continuous pump with free water flushes. I was unsure of his volume status may be behind on fluids so gave 500 cc bolus fluid. Echo was done was normal. In the afternoon his pulse rate settled down to less than 100. Remains npo. Will consult GI for dysphagia. Did speak to ab out hospice she is going to discuss it with the patient. PHYSICAL EXAM: VITAL SIGNS:As below GENERAL: Lying down comfortably in bed in no acute distress. HEAD: Normocephalic, atraumatic. NECK: Supple. No jugular venous distention (JVD). LUNGS: Clear to auscultation. S1, S2 audible. No murmurs appreciated. ABDOMEN: Soft. Positive bowel sounds. Extremities: No pedal edema. SKIN: Intact. NEUROLOGIC: Patient awake, alert, oriented times three. Labs and Radiology: reviewed Assessment and Plan: This is a 68-year-old male with a past medical history of stage IV esophageal carcinoma, on second line chemotherapy was supposed to get cycle 3 today, radiation in sepOct 2018 , status post stent placement, hypothyroidism, chronic kidney disease (CKD) III, atrial fibrillation who presents to the emergency room from Dr. Diana Yi' office due to dysphagia. According to the patient, recently he has been having difficulty swallowing liquids but has been okay with solids. Patient also has apparently lost approximately 12 pounds in the last month. Dr. Wilson did the last esophagogastroduodenoscopy (EGD) in September 2018. Patient also complained of general malaise and a chronic cough and has not been using his gastrostomy (G) tube much with his Ensure that he normally takes, because he had been trying to have his intake in oral form, so he will be admitted for further management. Dysphagia. due to esophageal mass and stricture above the esophageal stent with complete occlusion of the esophagus. there is also paraesophageal mass in the mediastinum will keep NPO will consult dr Wilson use only PEG tube for continuous feeding. Sinus tachycardia having low grade fever and infection going on may be due to cancer itself also if continues to be tachycardic and febrile will expand antibiotic coverage. 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 HER2 positive, currently on Ramucirumab/Paclitaxel begun October 2018 as second-line treatment. Original metastatic diagnosis December 2017 with adenocarcinoma on esophageal nodule biopsy, HER2 positive. Multiple lung nodules, right lung biopsy confirming moderate to poorly differentiated adenocarcinoma consistent with esophageal primary. Status post cisplatin/5-FU/traztuzumab treatment December 2017 with response demonstrated in May, completed total six cycles May 2018 and continued on single-agent trastuzumab until August 2018. However, restaging in late July 2018 showed disease progression in lung metastases. He received radiation to the esophagus September to October 2018 and started ramucirumab/paclitaxel in October. poor prognosis. Malnutrition. Intake through PEG tube continuous feeding Acute bronchitis. antibiotic changed from levofloxacin to ceftriaxone due to nausea, vomiting and tachycardia. blood cultures negative till date. resp panel is negative. Atrial fibrillation continue amiodarone and ASA not on any anticoagulation CKD stage 3 stable. Hypothyroid continue synthroid DVT prophylaxis ordered. VS,Fishbone, I+O VS, Fishbone, I+O Laboratory Tests 12/20/18 06:55 Red Blood Count 3.08 L, Mean Corpuscular Volume 96.4 H, Mean Corpuscular Hemoglobin 30.8, Mean Corpuscular Hemoglobin Concent 32.0, Red Cell Distribution Width 16.8 H, Neutrophils (%) (Auto) 81.8 H, Lymphocytes (%) (Auto) 4.4 L, Monocytes (%) (Auto) 9.9 H, Eosinophils (%) (Auto) 1.1, Basophils (%) (Auto) 0.3, Neutrophils # (Auto) 9.3 H, Lymphocytes # (Auto) 0.5 L, Monocytes # (Auto) 1.1 H, Eosinophils # (Auto) 0.1, Basophils # (Auto) 0.0, Calcium Level 7.8 L Vital Signs Date Time Temp Pulse Resp B/P (MAP) Pulse Ox O2 Delivery O2 Flow Rate FiO2 12/20/18 22:00 98.7 85 16 112/71 (85) 97 3.0 12/16/18 19:46 Nasal Cannula I&O- Last 24 Hours up to 6 AM 12/20/18 06:00 Intake Total 1690 ml Output Total 630 ml Balance 1060 ml ABHI BLANCO MD Dec 20, 2018 23:47
[2018-12-21] MEDS: ONDANSETRON 4MG/2ML VIAL (J2405) IV PRN (01:19)
[2018-12-21] MEDS: MORPHINE 4 MG/ML 1ML VIAL/SYRINGE (J2270) IV PRN ×2 (01:20→09:28)
[2018-12-21] MEDS: MORPHINE 10MG/0.5ML ORAL CONCENTRATE SOLUTION U/D PEG PRN ×2 (06:20→19:45)
[2018-12-21] MEDS: LEVOTHYROXINE 25MCG TABLET (0.025MG) PO SCH (06:20)
[2018-12-21 07:31] LABS: BASO % 0.3 % (0.0-1.0); EOS # 0.2 10^3/uL (0.0-0.50); EOS % 1.6 % (0.0-3.0); HEMATOCRIT 27.6 % (42.0-52.0); HEMOGLOBIN 8.5 g/dl (13.5-17.5); LYMPH # 0.5 10^3/uL (1.5-4.5); LYMPH % 5.2 % (24.0-44.0); MEAN CORPUSCULAR HGB CONC 30.8 g/dl (32.0-36.5); MEAN CORPUSCULAR VOLUME 97.5 fl (80.0-96.0); MONO % 10.6 % (0.0-5.0); NEUTROPHILS # 7.2 10^3/uL (1.8-7.7); NEUTROPHILS % 78.3 % (36.0-66.0); PLATELET COUNT, AUTOMATED 189 10^3/uL (150-450); RED BLOOD COUNT 2.83 10^6/uL (4.30-6.10); WHITE BLOOD COUNT 9.2 10^3/uL (4.0-10.0)
[2018-12-21 07:54] LABS: BLOOD UREA NITROGEN 16 MG/DL (7-18); CARBON DIOXIDE LEVEL 32 MEQ/L (21-32); CHLORIDE LEVEL 104 MEQ/L (98-107); CREATININE FOR GFR 0.92 MG/DL (0.70-1.30); GLOMERULAR FILTRATION RATE > 60.0 (>49); GLUCOSE, FASTING 110 MG/DL (70-100); POTASSIUM SERUM 3.9 MEQ/L (3.5-5.1); SODIUM LEVEL 140 MEQ/L (136-145)
[2018-12-21] MEDS: ASPIRIN 81 MG ENTERIC TAB PO SCH (09:00)
[2018-12-21] MEDS: PANTOPRAZOLE 40MG INJ (PROTONIX) (C9113) IV SCH (09:28)
[2018-12-21] MEDS: AMIODARONE 200 MG TAB (PACERONE) PO SCH (09:28)
[2018-12-21] MEDS: MULTIVITAMINS/MINERALS THERAP 1 TAB PO SCH (09:28)
[2018-12-21] MEDS: ASPIRIN 81 MG CHEW TABLET PEG SCH (09:28)
--- NOTE | 2018-12-21 10:06 | IPNPDOC ---
Date Seen The patient was seen on 12/21/18. Progress Note SUBJECTIVE: c/o pleuritic right lower lobe pain no chills no cough. no sputum. Per GI, a stent can be placed if oncology feels this may be of benefit, Dr. Yi. will need pulm clearance due to lung mets . no othe rc/o. agrees with plan. PHYSICAL EXAM: VITAL SIGNS:As below GENERAL: Lying down comfortably in bed in no acute distress. HEAD: Normocephalic, atraumatic. NECK: Supple. No jugular venous distention (JVD). LUNGS: Clear to auscultation. S1, S2 audible. No murmurs appreciated. ABDOMEN: Soft. Positive bowel sounds. Extremities: No pedal edema. SKIN: Intact. NEUROLOGIC: Patient awake, alert, oriented times three. Labs and Radiology: reviewed Assessment and Plan: This is a 68-year-old male with a past medical history of stage IV esophageal carcinoma, on second line chemotherapy was supposed to get cycle 3 today, radiation in sepOct 2018 , status post stent placement, h ypothyroidism, chronic kidney disease (CKD) III, atrial fibrillation who presents to the emergency room from Dr. Diana Yi' office due to dysphagia. According to the patient, recently he has been having difficulty swallowing liquids but has been okay with solids. Patient also has apparently lost approximately 12 pounds in the last month. Dr. Wilson did the last esophagogastroduodenoscopy (EGD) in September 2018. Patient also complained of general malaise and a chronic cough and has not been using his gastrostomy (G) tube much with his Ensure that he normally takes, because he had been trying to have his intake in oral form, so he will be admitted for further management. Dysphagia. due to esophageal mass and stricture above the esophageal stent with complete occlusion of the esophagus. there is also paraesophageal mass in the mediastinum will keep NPO will consult dr Wilson use only PEG tube for continuous feeding. Sinus tachycardia having low grade fever and infection going on may be due to cancer itself also if continues to be tachycardic and febrile will expand antibiotic coverage. 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 HER2 positive, currently on Ramucirumab/Paclitaxel begun October 2018 as second-line treatment. Original metastatic diagnosis December 2017 with adenocarcinoma on esophageal nodule biopsy, HER2 positive. Multiple lung nodules, right lung biopsy confirming moderate to poorly differentiated adenocarcinoma consistent with esophageal primary. Status post cisplatin/5-FU/traztuzumab treatment December 2017 with response demonstrated in May, completed total six cycles May 2018 and continued on single-agent trastuzumab until August 2018. However, restaging in late July 2018 showed disease progression in lung metastases. He received radiation to the esophagus September to October 2018 and started ramucirumab/paclitaxel in October. Per GI as of 12/21, need to discuss w Dr. Yi if will benefit from replacing a new stent and will need pulm clearance in light of pulm mets. poor prognosis. Malnutrition. Intake through PEG tube continuous feeding Acute bronchitis. antibiotic changed from levofloxacin to ceftriaxone due to nausea, vomiting and tachycardia. blood cultures negative till date. resp panel is negative. Atrial fibrillation continue amiodarone and ASA not on any anticoagulation CKD stage 3 stable. Hypothyroid continue synthroid DVT prophylaxis ordered. VS, I&O, 24H, Fishbone Vital Signs/I&O Vital Signs Date Time Temp Pulse Resp B/P (MAP) Pulse Ox O2 Delivery O2 Flow Rate FiO2 12/21/18 09:28 17 12/21/18 07:05 2.0 12/20/18 22:00 98.7 85 112/71 (85) 97 12/16/18 19:46 Nasal Cannula I&O- Last 24 Hours up to 6 AM 12/21/18 05:59 Intake Total 550 ml Output Total 575 ml Balance -25 ml Laboratory Data 24H LABS Laboratory Tests 2 12/21/18 07:12: Immature Granulocyte % (Auto) 4.0H, White Blood Count 9.2, Red Blood Count 2.83L, Hemoglobin 8.5L, Hematocrit 27.6L, Mean Corpuscular Volume 97.5H, Mean Corpuscular Hemoglobin 30.0, Mean Corpuscular Hemoglobin Concent 30.8L, Red Cell Distribution Width 16.8H, Platelet Count 189, Neutrophils (%) (Auto) 78.3H, Lymphocytes (%) (Auto) 5.2L, Monocytes (%) (Auto) 10.6H, Eosinophils (%) (Auto) 1.6, Basophils (%) (Auto) 0.3, Neutrophils # (Auto) 7.2, Lymphocytes # (Auto) 0.5L, Monocytes # (Auto) 1.0H, Eosinophils # (Auto) 0.2, Basophils # (Auto) 0.0, Nucleated Red Blood Cells % (auto) 0.0, Anion Gap 4L, Glomerular Filtration Rate > 60.0, Blood Urea Nitrogen 16, Creatinine 0.92, Sodium Level 140, Potassium Level 3.9, Chloride Level 104, Carbon Dioxide Level 32, Calcium Level 8.0L CBC/BMP Laboratory Tests 12/21/18 07:12 Red Blood Count 2.83 L, Mean Corpuscular Volume 97.5 H, Mean Corpuscular Hemo globin 30.0, Mean Corpuscular Hemoglobin Concent 30.8 L, Red Cell Distribution Width 16.8 H, Neutrophils (%) (Auto) 78.3 H, Lymphocytes (%) (Auto) 5.2 L, Monocytes (%) (Auto) 10.6 H, Eosinophils (%) (Auto) 1.6, Basophils (%) (Auto) 0.3, Neutrophils # (Auto) 7.2, Lymphocytes # (Auto) 0.5 L, Monocytes # (Auto) 1.0 H, Eosinophils # (Auto) 0.2, Basophils # (Auto) 0.0, Calcium Level 8.0 L Microbiology Microbiology 12/16/18 Blood Culture - Preliminary, Resulted No Growth after 72 hours. All specime... 12/16/18 Blood Culture - Preliminary, Resulted No Growth after 72 hours. All specime... 12/16/18 Respiratory Virus Panel (PCR) ([facility]) - Final, Complete 12/16/18 Gram Stain - Final, Complete 12/16/18 Sputum Culture - Final, Complete Streptococcus Pneumoniae Klebsiella Pneumoniae Staphylococcus Aureus Yeast Like Organism ARLETTE VILLANUEVA MD Dec 21, 2018 09:40
[2018-12-21] MEDS: cefTRIAXone SOD 1 GM in D5W MINI-BAG PLUS 50 ML IV SCH (10:31)
[2018-12-21 13:59] VITALS: BP 127/78
[2018-12-21] MEDS: MIRALAX *UNIT DOSE* 17GM PACKET PO SCH (19:45)
[2018-12-21 20:00] VITALS: BP 186/94
[2018-12-22] MEDS: MORPHINE 4 MG/ML 1ML VIAL/SYRINGE (J2270) IV PRN ×5 (00:55→20:16)
[2018-12-22] MEDS: LEVOTHYROXINE 25MCG TABLET (0.025MG) PO SCH (05:39)
[2018-12-22 05:53] LABS: BASO # 0.1 10^3/uL (0.0-0.2); BASO % 0.5 % (0.0-1.0); EOS # 0.1 10^3/uL (0.0-0.50); EOS % 1.1 % (0.0-3.0); HEMATOCRIT 28.9 % (42.0-52.0); HEMOGLOBIN 9.1 g/dl (13.5-17.5); LYMPH # 0.6 10^3/uL (1.5-4.5); LYMPH % 5.9 % (24.0-44.0); MEAN CORPUSCULAR HEMOGLOBIN 30.7 pg (27.0-33.0); MEAN CORPUSCULAR HGB CONC 31.5 g/dl (32.0-36.5); MEAN CORPUSCULAR VOLUME 97.6 fl (80.0-96.0); MONO # 0.9 10^3/uL (0.0-0.8); MONO % 8.8 % (0.0-5.0); NEUTROPHILS % 82.5 % (36.0-66.0); PLATELET COUNT, AUTOMATED 187 10^3/uL (150-450); RED BLOOD COUNT 2.96 10^6/uL (4.30-6.10); WHITE BLOOD COUNT 9.7 10^3/uL (4.0-10.0)
[2018-12-22 06:00] VITALS: BP 138/62
[2018-12-22 06:39] LABS: BLOOD UREA NITROGEN 11 MG/DL (7-18); CALCIUM LEVEL 7.7 MG/DL (8.8-10.2); CARBON DIOXIDE LEVEL 33 MEQ/L (21-32); CHLORIDE LEVEL 101 MEQ/L (98-107); CREATININE FOR GFR 0.83 MG/DL (0.70-1.30); GLOMERULAR FILTRATION RATE > 60.0 (>49); GLUCOSE, FASTING 109 MG/DL (70-100); POTASSIUM SERUM 3.7 MEQ/L (3.5-5.1); SODIUM LEVEL 138 MEQ/L (136-145)
[2018-12-22] MEDS: cefTRIAXone SOD 1 GM in D5W MINI-BAG PLUS 50 ML IV SCH (10:15)
[2018-12-22] MEDS: PANTOPRAZOLE 40MG INJ (PROTONIX) (C9113) IV SCH (10:15)
[2018-12-22] MEDS: MULTIVITAMINS/MINERALS THERAP 1 TAB PO SCH (10:16)
[2018-12-22] MEDS: ASPIRIN 81 MG CHEW TABLET PEG SCH (10:16)
[2018-12-22] MEDS: AMIODARONE 200 MG TAB (PACERONE) PO SCH ×2 (10:16→20:16)
--- NOTE | 2018-12-22 10:29 | IPNPDOC ---
Date Seen The patient was seen on 12/22/18. Progress Note SUBJECTIVE: Per at the bedside, pt is a FULL CODE despite terminal esophageal cancer with pulmonary metastasis. Per , pt has had increased residual overnight via the feeding tube and emesis. Pt has had no fever, chills, and c/o occasional emesis/cough productive. PHYSICAL EXAM: VITAL SIGNS:As below GENERAL: Lying down comfortably in bed in no acute distress. HEAD: Normocephalic, atraumatic. NECK: Supple. No jugular venous distention (JVD). LUNGS: diminished. bibasilar crackles S1, S2 audible. No murmurs appreciated. ABDOMEN: Soft. Positive bowel sounds. Extremities: No pedal edema. SKIN: Intact. NEUROLOGIC: Patient awake, alert, oriented times three. Labs and Radiology: reviewed Assessment and Plan: This is a 68-year-old male with a past medical history of stage IV esophageal carcinoma, on second line chemotherapy was supposed to get cycle 3 today, radiation in sepOct 2018 , status post stent placement, hypothyroidism, chronic kidney disease (CKD) III, atrial fibrillation who presents to the emergency room from Dr. Diana Yi' office due to dysphagia. According to the patient, recently he has been having difficulty swallowing liquids but has been okay with solids. Patient also has apparently lost approximately 12 pounds in the last month. Dr. Wilson did the last esophagogastroduodenoscopy (EGD) in September 2018. Patient also complained of general malaise and a chronic cough and has not been using his gastrostomy (G) tube much with his Ensure that he normally takes, because he had been trying to have his intake in oral form, so he will be admitted for further management. Dysphagia. due to esophageal mass and stricture above the esophageal stent with complete occlusion of the esophagus. there is also paraesophageal mass in the mediastinum will keep NPO consulted dr Wilson GI who recommends esophageal stent and asked for pulmonary clearance and prognosis from oncology.. Per Dr. Burkett, pulmonary cannot give clearance as the patient does not have a simple treated copd or asthma that can be treated with bronchodilators. 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 If the patient has an ability to receive fluid and nutrition by any other means aside from po with an esophageal stent, it is prudent to use that alternative way of nutrition. Pulmonary can do spirometry testing, and will help with intubation and management of ventilation should this occur. use only PEG tube for continuous feeding and hydration. Per Dr. Yi, oncologist,on 12/21/18, patient has already failed first line therapy and has recently received 2nd line treatment with progression of tumor and new lung mets. It would be reasonable to discuss HOSPICE CARE. A new esophageal stent will NOT TREAT OR CURE the cancer, AND WILL NOT PROLONG HIS LIFE. It would only be for QUALITY OF LIFE, to be able to taste and enjoy food. LIFE EXPECTANCY is <6months. Sinus tachycardia having low grade fever and infection going on may be due to cancer itself also if continues to be tachycardic and febrile will expand antibiotic coverage. 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 HER2 positive, currently on Ramucirumab/Paclitaxel begun October 2018 as second-line treatment. Original metastatic diagnosis December 2017 with adenocarcinoma on esophageal nodule biopsy, HER2 positive. Multiple lung nodules, right lung biopsy confirming moderate to poorly differentiated adenocarcinoma consistent with esophageal primary. Status post cisplatin/5-FU/traztuzumab treatment December 2017 with response demonstrated in May, completed total six cycles May 2018 and continued on single-agent trastuzumab until August 2018. However, restaging in late July 2018 showed disease progression in lung metastases. He received radiation to the esophagus September to October 2018 and started ramucirumab/paclitaxel in October. consulted dr Katie GALDAMEZ who recommends esophageal stent and asked for pulmonary clearance and prognosis from oncology.. Per Dr. Burkett, pulmonary cannot give clearance as the patient does not have a simple treated copd or asthma that can be treated with bronchodilators. 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 If the patient has an ability to receive fluid and nutrition by any other means aside from po with an esophageal stent, it is prudent to use that alternative way of nutrition. Pulmonary can do spirometry testing, and will help with intubation and management of ventilation should this occur. use only PEG tube for continuous feeding and hydration. Per Dr. Yi, oncologist,on 12/21/18, patient has already failed first line therapy and has recently received 2nd line treatment with progression of tumor and new lung mets. It would be reasonable to discuss HOSPICE CARE. A new esophageal stent will NOT TREAT OR CURE the cancer, AND WILL NOT PROLONG HIS LIFE. It would only be for QUALITY OF LIFE, to be able to taste and enjoy food. LIFE EXPECTANCY is <6months. poor prognosis. Malnutrition. Intake through PEG tube continuous feeding consulted dr Katie GALDAMEZ who recommends esophageal stent and asked for pulmonary clearance and prognosis from oncology.. Per Dr. Burkett, pulmonary cannot give clearance as the patient does not have a simple treated copd or asthma that can be treated with bronchodilators. 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 If the patient has an ability to receive fluid and nutrition by any other means aside from po with an esophageal stent, it is prudent to use that alternative way of nutrition. Pulmonary can do spirometry testing, and will help with intubation and management of ventilation should this occur. use only PEG tube for continuous feeding and hydration. Per Dr. Yi, oncologist,on 12/21/18, patient has already failed first line therapy and has recently received 2nd line treatment with progression of tumor and new lung mets. It would be reasonable to discuss HOSPICE CARE. A new esophageal stent will NOT TREAT OR CURE the cancer, AND WILL NOT PROLONG HIS LIFE. It would only be for QUALITY OF LIFE, to be able to taste and enjoy food. LIFE EXPECTANCY is <6months. Acute bronchitis. antibiotic changed from levofloxacin to ceftriaxone due to nausea, vomiting and tachycardia. blood cultures negative till date. resp panel is negative. Atrial fibrillation continue amiodarone and ASA not on any anticoagulation CKD stage 3 stable. Hypothyroid continue synthroid DVT prophylaxis ordered. disposition: appropriate for HOSPICE WITH LIFE EXPECTANCY <6months. PT is still a FULL CODE despite Extensive discussion with the patient's 45 minutes this morning. VS, I&O, 24H, Fishbone Vital Signs/I&O Vital Signs Date Time Temp Pulse Resp B/P (MAP) Pulse Ox O2 Delivery O2 Flow Rate FiO2 12/22/18 08:34 17 12/22/18 08:20 3.0 12/22/18 07:35 68 12/22/18 06:00 98.6 138/62 (87) 12/21/18 20:00 96 12/16/18 19:46 Nasal Cannula I&O- Last 24 Hours up to 6 AM 12/22/18 06:00 Intake Total 1650 ml Output Total 1400 ml Balance 250 ml Laboratory Data 24H LABS Laboratory Tests 2 12/22/18 05:45: Immature Granulocyte % (Auto) 1.2, White Blood Count 9.7, Red Blood Count 2.96L, Hemoglobin 9.1L, Hematocrit 28.9L, Mean Corpuscular Volume 97.6H, Mean Corpuscular Hemoglobin 30.7, Mean Corpuscular Hemoglobin Concent 31.5L, Red Cell Distribution Width 16.4H, Platelet Count 187, Neutrophils (%) (Auto) 82.5H, Ly mphocytes (%) (Auto) 5.9L, Monocytes (%) (Auto) 8.8H, Eosinophils (%) (Auto) 1.1, Basophils (%) (Auto) 0.5, Neutrophils # (Auto) 8.0H, Lymphocytes # (Auto) 0.6L, Monocytes # (Auto) 0.9H, Eosinophils # (Auto) 0.1, Basophils # (Auto) 0.1, Nucleated Red Blood Cells % (auto) 0.0, Anion Gap 4L, Glomerular Filtration Rate > 60.0, Blood Urea Nitrogen 11, Creatinine 0.83, Sodium Level 138, Potassium Level 3.7, Chloride Level 101, Carbon Dioxide Level 33H, Calcium Level 7.7L CBC/BMP Laboratory Tests 12/22/18 05:45 Red Blood Count 2.96 L, Mean Corpuscular Volume 97.6 H, Mean Corpuscular Hemoglobin 30.7, Mean Corpuscular Hemoglobin Concent 31.5 L, Red Cell Distribution Width 16.4 H, Neutrophils (%) (Auto) 82.5 H, Lymphocytes (%) (Auto) 5.9 L, Monocytes (%) (Auto) 8.8 H, Eosinophils (%) (Auto) 1.1, Basophils (%) (Auto) 0.5, Neutrophils # (Auto) 8.0 H, Lymphocytes # (Auto) 0.6 L, Monocytes # (Auto) 0.9 H, Eosinophils # (Auto) 0.1, Basophils # (Auto) 0.1, Calcium Level 7.7 L Microbiology Microbiology 12/16/18 Blood Culture - Final, Complete NO GROWTH AFTER 5 DAYS 12/16/18 Blood Culture - Final, Complete NO GROWTH AFTER 5 DAYS 12/16/18 Respiratory Virus Panel (PCR) ([facility]) - Final, Complete 12/16/18 Gram Stain - Final, Complete 12/16/18 Sputum Culture - Final, Complete Streptococcus Pneumoniae Klebsiella Pneumoniae Staphylococcus Aureus Yeast Like Organism ARLETTE VILLANUEVA MD Dec 22, 2018 10:23
[2018-12-22 13:00] VITALS: BP 119/81
[2018-12-22] MEDS ORDERED: NS 250 ML IV ONE (13:30)
[2018-12-22] MEDS ORDERED: ISOVUE-370 76% 100ML VIAL (Q9967) As Ordered ONE (14:25)
--- NOTE | 2018-12-22 14:55 | REP ---
CT of the chest pulmonary artery CT angiography protocol with IV contrast: Comparison is 12/16/2018. There are large bilateral pleural effusions as a change from the prior study. There is an infiltrate in the right middle lobe as an interval change. There are no emboli in the pulmonary trunk or central pulmonary arteries. There are no emboli in the pulmonary lobe or segment branches. There is an esophageal stent as previously. There is a stricture involving the esophagus and hypopharynx above the stent as previously.. Impression: No pulmonary emboli. Large bilateral pleural effusions as an interval change. Right middle lobe infiltrate as an interval change. Multiple lung metastases as previously. Electronically Signed by Dave Patterson MD 12/22/2018 02:47 P
[2018-12-22 16:57] LABS: CK-MB VALUE MASS < 1.0 NG/ML (<3.6); CPK CREATINE PHOSPHOKINASE 22 U/L (39-308); LDH LACTATE DEHYDROGENASE 164 U/L (87-241); MB/CK RELATIVE INDEX 4.55 (< OR =4); NT-PRO BNP 924 PG/ML (<125); TROPONIN I < 0.02 NG/ML (< 0.10)
[2018-12-22] MEDS ORDERED: AMIODARONE 200 MG TAB (PACERONE) PO ONE (17:30)
[2018-12-22 17:56] VITALS: BP 132/86
[2018-12-22] MEDS: FUROSEMIDE 20 MG/2 ML VIAL (J1940) IV SCH (18:33)
[2018-12-22 20:00] VITALS: BP 112/84
[2018-12-22] MEDS: MIRALAX *UNIT DOSE* 17GM PACKET PO SCH (20:15)
[2018-12-22] MEDS ORDERED: METOPROLOL 5 MG/5 ML VIAL IV ONE (21:30)
[2018-12-22 21:38] VITALS: BP 120/70
[2018-12-22 21:42] VITALS: BP 120/70
--- NOTE | 2018-12-22 22:34 | ECGEPIP ---
Stationary ECG Study [facility] Test Date: 2018-12-22 Pat Name: ADALID BRADEN Department: Room: [place] [address] Gender: M Relocation Manager: SUE : [id number] Requested By: ARLETTE Marx Order Number: [id number] Reading MD: Cooper Mancera Measurements Intervals Severance Rate: 133 P: AK: 0 QRS: 3 QRSD: 92 T: 40 QT: 278 QTc: 414 Interpretive Statements ATRIAL FLUTTER WITH RAPID VENTRICULAR RESPONSE Poor R wave progression NONSPECIFIC ST & T-WAVE ABNORMALITY ABNORMAL RHYTHM ECG Electronically Signed On 12-22-2018 22:34:45 EST by Cooper Mancera
[2018-12-22] MEDS ORDERED: SLF 3 ML SYR IV PRN (23:45)
[2018-12-23] VITALS (12 sets, daily range): BP systolic 98–172; BP diastolic 54–90
[2018-12-23] MEDS: MORPHINE 4 MG/ML 1ML VIAL/SYRINGE (J2270) IV PRN ×3 (00:19→08:25)
[2018-12-23] MEDS: FUROSEMIDE 20 MG/2 ML VIAL (J1940) IV SCH ×4 (00:19→18:49)
[2018-12-23] MEDS: LEVOTHYROXINE 25MCG TABLET (0.025MG) PO SCH (05:15)
[2018-12-23] MEDS: SLF 3 ML SYR IV SCH ×3 (05:16→20:42)
[2018-12-23 06:22] LABS: BASO # 0.1 10^3/uL (0.0-0.2); BASO % 0.5 % (0.0-1.0); EOS # 0.1 10^3/uL (0.0-0.50); EOS % 0.9 % (0.0-3.0); HEMATOCRIT 31.5 % (42.0-52.0); HEMOGLOBIN 9.9 g/dl (13.5-17.5); LYMPH # 0.6 10^3/uL (1.5-4.5); LYMPH % 6.5 % (24.0-44.0); MEAN CORPUSCULAR HEMOGLOBIN 30.4 pg (27.0-33.0); MEAN CORPUSCULAR HGB CONC 31.4 g/dl (32.0-36.5); MEAN CORPUSCULAR VOLUME 96.6 fl (80.0-96.0); MONO # 0.7 10^3/uL (0.0-0.8); NEUTROPHILS # 7.6 10^3/uL (1.8-7.7); NEUTROPHILS % 82.5 % (36.0-66.0); PLATELET COUNT, AUTOMATED 224 10^3/uL (150-450); RED BLOOD COUNT 3.26 10^6/uL (4.30-6.10); WHITE BLOOD COUNT 9.2 10^3/uL (4.0-10.0)
[2018-12-23 06:33] LABS: BLOOD UREA NITROGEN 13 MG/DL (7-18); CALCIUM LEVEL 8.8 MG/DL (8.8-10.2); CARBON DIOXIDE LEVEL 36 MEQ/L (21-32); CHLORIDE LEVEL 97 MEQ/L (98-107); CREATININE FOR GFR 1.02 MG/DL (0.70-1.30); GLOMERULAR FILTRATION RATE > 60.0 (>49); GLUCOSE, FASTING 111 MG/DL (70-100); POTASSIUM SERUM 3.8 MEQ/L (3.5-5.1); SODIUM LEVEL 137 MEQ/L (136-145)
[2018-12-23] MEDS: PANTOPRAZOLE 40MG INJ (PROTONIX) (C9113) IV SCH (08:25)
[2018-12-23] MEDS: AMIODARONE 200 MG TAB (PACERONE) PO SCH ×2 (08:26→19:41)
[2018-12-23] MEDS: MULTIVITAMINS/MINERALS THERAP 1 TAB PO SCH (08:26)
[2018-12-23] MEDS: ASPIRIN 81 MG CHEW TABLET PEG SCH (08:33)
[2018-12-23 08:58] LABS: CK-MB VALUE MASS < 1.0 NG/ML (<3.6); CPK CREATINE PHOSPHOKINASE 16 U/L (39-308); MB/CK RELATIVE INDEX 6.25 (< OR =4); NT-PRO BNP 2271 PG/ML (<125); TROPONIN I < 0.02 NG/ML (< 0.10)
--- NOTE | 2018-12-23 09:00 | IPNPDOC ---
Date Seen The patient was seen on 12/23/18. Progress Note SUBJECTIVE:Overnight, pt requested DNR, DNI in light of his worsening clinical condition and progressive metastatic esophageal CA s/p 2nd line chemo. Pt is appropriate for hospice, but still option for active treatment for treatable conditions. Due to Afib w rvr , and new b/l LARGE PLEURAL EFFUSIONS, pt was deemed unstable for med surg, and subsequently transferred to PCU on 12/22/18 for IV rate control mgt and diuresis. Abnormal card brito most likely due to demand ischemia from pleural effusions. No fever or chills. sob worsened, and still with pleuritic chest pain. Thoracentesis for cytology and therapeutic purposes to be done today. PHYSICAL EXAM: VITAL SIGNS:As below GENERAL: Lying down comfortably in bed in no acute distress. HEAD: Normocephalic, atraumatic. NECK: Supple. No jugular venous distention (JVD). LUNGS: diminished. bibasilar crackles S1, S2 audible. No murmurs appreciated. ABDOMEN: Soft. Positive bowel sounds. Extremities: No pedal edema. SKIN: Intact. NEUROLOGIC: Patient awake, alert, oriented times three. Labs and Radiology: reviewed Assessment and Plan: This is a 68-year-old male with a past medical history of stage IV esophageal carcinoma, on second line chemotherapy was supposed to get cycle 3 today, radiation in sepOct 2018 , status post stent placement, hypothyroidism, chronic kidney disease (CKD) III, atrial fibrillation who presents to the emergency room from Dr. Diana Yi' office due to dysphagia. According to the patient, recently he has been having difficulty swallowing liquids but has been okay with solids. Patient also has apparently lost approximately 12 pounds in the last month. Dr. Wilson did the last esophagogastroduodenoscopy (EGD) in September 2018. Patient also complained of general malaise and a chronic cough and has not been using his gastrostomy (G) tube much with his Ensure that he normally takes, because he had been trying to have his intake in oral form, so he will be admitted for further management. Bilateral pleural effusions . DDX : malignant pleural effusion, parapneumonic effusion, versus CHF. ECHO was wnl from 12/20/18. CT CHEST: LARGE BILATERAL PLEURAL EFFUSIONS. RML INFILTRATE INTERVAL CHANGE. After an extensive discussion with the patient and his regarding his overall poor prognosis and life expectancy of <6months, due to progressive and aggressive tumor with encroachment on the esophageal stent with complete occlusion, and NEW pulmonary metastases despite 2nd line chemotherapy regimen, with NEW ENLARGING BILATERAL PLEURAL EFFUSIONS within days of admission, Patient and his have requested to be DNR/DNI. In case of natural with no pulse and no spontaneous breathing, the patient does NOT WISH CHEST COMPRESSIONS, ELECTRICAL CARDIOVERSION, OR INTUBATION. thoracentesis and trial of diuresis if blood pressure permits. send pleural fluid analysis and cytology. If recurs, may need chest tube, pleurex catheter placement, and thoracic surgery consultation versus HOSPICE CARE. Dysphagia. due to esophageal mass and stricture above the esophageal stent with complete occlusion of the esophagus. there is also paraesophageal mass in the mediastinum will keep NPO consulted dr Katie GALDAMEZ who recommends esophageal stent and asked for pulmonary clearance and prognosis from oncology.. Per Dr. Burkett, pulmonary cannot give clearance as the patient does not have a simple treated copd or asthma that can be treated with bronchodilators. 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 If the patient has an ability to receive fluid and nutrition by any other means aside from po with an esophageal stent, it is prudent to use that alternative way of nutrition. Pulmonary can do spirometry testing, and will help with intubation and management of ventilation should this occur. use only PEG tube for continuous feeding and hydration. Per Dr. Yi, oncologist,on 12/21/18, patient has already failed first line therapy and has recently received 2nd line treatment with progression of tumor and new lung mets. It would be reasonable to discuss HOSPICE CARE. A new esophageal stent will NOT TREAT OR CURE the cancer, AND WILL NOT PROLONG HIS LIFE. It would only be for QUALITY OF LIFE, to be able to taste and enjoy food. LIFE EXPECTANCY is <6months. Sinus tachycardia having low grade fever and infection going on may be due to cancer itself also if continues to be tachycardic and febrile will expand antibiotic coverage. 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 HER2 positive, currently on Ramucirumab/Paclitaxel begun October 2018 as second-line treatment. Original metastatic diagnosis December 2017 with adenocarcinoma on esophageal nodule biopsy, HER2 positive. Multiple lung nodules, right lung biopsy confirming moderate to poorly differentiated adenocarcinoma consistent with esophageal primary. Status post cisplatin/5-FU/traztuzumab treatment December 2017 with response demonstrated in May, completed total six cycles May 2018 and continued on single-agent trastuzumab until August 2018. However, restaging in late July 2018 showed disease progression in lung metastases. He received radiation to the esophagus September to October 2018 and started ramucirumab/paclitaxel in October. consulted dr Katie GALDAMEZ who recommends esophageal stent and asked for pulmonary clearance and prognosis from oncology.. Per Dr. Burkett, pulmonary cannot give clearance as the patient does not have a simple treated copd or asthma that can be treated with bronchodilators. 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 If the patient has an ability to receive fluid and nutrition by any other means aside from po with an esophageal stent, it is prudent to use that alternative way of nutrition. Pulmonary can do spirometry testing, and will help with intubation and management of ventilation should this occur. use only PEG tube for continuous feeding and hydration. Per Dr. Yi, oncologist,on 12/21/18, patient has already failed first line therapy and has recently received 2nd line treatment with progression of tumor and new lung mets. It would be reasonable to discuss HOSPICE CARE. A new esophageal stent will NOT TREAT OR CURE the cancer, AND WILL NOT PROLONG HIS LIFE. It would only be for QUALITY OF LIFE, to be able to taste and enjoy food. LIFE EXPECTANCY is <6months. poor prognosis. Malnutrition. Intake through PEG tube continuous feeding consulted dr Katie GALDAMEZ who recommends esophageal stent and asked for pulmonary clearance and prognosis from oncology.. Per Dr. Burkett, pulmonary cannot give clearance as the patient does not have a simple treated copd or asthma that can be treated with bronchodilators. 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 If the patient has an ability to receive fluid and nutrition by any other means aside from po with an esophageal stent, it is prudent to use that alternative way of nutrition. Pulmonary can do spirometry testing, and will help with intubation and management of ventilation should this occur. use only PEG tube for continuous feeding and hydration. Per Dr. Yi, oncologist,on 12/21/18, patient has already failed first line therapy and has recently received 2nd line treatment with progression of tumor and new lung mets. It would be reasonable to discuss HOSPICE CARE. A new esophageal stent will NOT TREAT OR CURE the cancer, AND WILL NOT PROLONG HIS LIFE. It would only be for QUALITY OF LIFE, to be able to taste and enjoy food. LIFE EXPECTANCY is <6months. Acute bronchitis. antibiotic changed from levofloxacin to ceftriaxone due to nausea, vomiting and tachycardia. blood cultures negative till date. resp panel is negative. Atrial fibrillation continue amiodarone and ASA not on any anticoagulation CKD stage 3 stable. Hypothyroid continue synthroid DVT prophylaxis ordered. CODE STATUS: DO NOT RESUSCITATE DO NOT INTUBATE. VS, I&O, 24H, Fishbone Vital Signs/I&O Vital Signs Date Time Temp Pulse Resp B/P (MAP) Pulse Ox O2 Delivery O2 Flow Rate FiO2 12/23/18 05:13 119/78 (92) 12/23/18 04:00 3.0 12/23/18 04:00 97.4 87 18 94 I&O- Last 24 Hours up to 6 AM 12/23/18 06:00 Intake Total 1100 ml Output Total 3175 ml Balance -2075 ml Laboratory Data 24H LABS Laboratory Tests 2 12/23/18 05:58: Immature Granulocyte % (Auto) 1.6, White Blood Count 9.2, Red Blood Count 3.26L, Hemoglobin 9.9L, Hematocrit 31.5L, Mean Corpuscular Volume 96.6H, Mean Corpuscular Hemoglobin 30.4, Mean Corpuscular Hemoglobin Concent 31.4L, Red Cell Distribution Width 16.7H, Platelet Count 224, Neutrophils (%) (Auto) 82.5H, Lymphocytes (%) (Auto) 6.5L, Monocytes (%) (Auto) 8.0H, Eosinophils (%) (Auto) 0.9, Basophils (%) (Auto) 0.5, Neutrophils # (Auto) 7.6, Lymphocytes # (Auto) 0.6L, Monocytes # (Auto) 0.7, Eosinophils # (Auto) 0.1, Basophils # (Auto) 0.1, Nucleated Red Blood Cells % (auto) 0.0, Anion Gap 4L, Glomerular Filtration Rate > 60.0, Blood Urea Nitrogen 13, Creatinine 1.02, Sodium Level 137, Potassium Level 3.8, Chloride Level 97L, Carbon Dioxide Level 36H, Calcium Level 8.8 CBC/BMP Laboratory Tests 12/23/18 05:58 Red Blood Count 3.26 L, Mean Corpuscular Volume 96.6 H, Mean Corpuscular Hemoglobin 30.4, Mean Corpuscular Hemoglobin Concent 31.4 L, Red Cell Distribu tion Width 16.7 H, Neutrophils (%) (Auto) 82.5 H, Lymphocytes (%) (Auto) 6.5 L, Monocytes (%) (Auto) 8.0 H, Eosinophils (%) (Auto) 0.9, Basophils (%) (Auto) 0.5, Neutrophils # (Auto) 7.6, Lymphocytes # (Auto) 0.6 L, Monocytes # (Auto) 0.7, Eosinophils # (Auto) 0.1, Basophils # (Auto) 0.1, Calcium Level 8.8 Microbiology Microbiology 12/16/18 Blood Culture - Final, Complete NO GROWTH AFTER 5 DAYS 12/16/18 Blood Culture - Final, Complete NO GROWTH AFTER 5 DAYS 12/16/18 Respiratory Virus Panel (PCR) ([facility]) - Final, Complete 12/16/18 Gram Stain - Final, Complete 12/16/18 Sputum Culture - Final, Complete Streptococcus Pneumoniae Klebsiella Pneumoniae Staphylococcus Aureus Yeast Like Organism ARLETTE VILLANUEVA MD Dec 23, 2018 07:03
--- NOTE | 2018-12-23 09:10 | REP ---
Portable chest, 07:18 a.m., single AP view, patient sitting: Comparisons are the portable chest dated 12/16/[address] dated 12/22/2018. There are multiple poorly defined nodular densities throughout the lung zhu bilaterally, unchanged from the comparison studies. On the comparison CT there are large bilateral pleural effusions. These are not as well appreciated on the portable plain film study today. There likely in the high in the hemidiaphragms. Cardiac size is normal, unchanged. There is a right IJ [id number] with the tip in the superior vena cava, unchanged. There are surgical clips in the mediastinum, unchanged. Impression: Large bilateral pleural effusions, better appreciated on the CT dated 12/22/2018. Multiple poorly defined nodular densities throughout the lung zhu, unchanged. [id number], unchanged. Electronically Signed by Dave Patterson MD 12/23/2018 09:02 A
[2018-12-23] MEDS: ONDANSETRON 4MG/2ML VIAL (J2405) IV PRN (09:17)
[2018-12-23] MEDS: MORPHINE 10MG/0.5ML ORAL CONCENTRATE SOLUTION U/D PEG PRN ×3 (10:43→17:17)
[2018-12-23 12:53] LABS: PH BODY FLUID 7.596 UNITS (NOT ESTABLISHED); SOURCE, BODY FLUID pH PLEURAL
[2018-12-23 13:04] LABS: APPEARANCE, BODY FLUID HAZY (CLEAR); PLEURAL FL COLOR PALE YELLOW (COLORLESS); SOURCE, BODY FLUID PLEURAL
[2018-12-23 13:22] LABS: AMYLASE, BODY FLUID 12 U/L (NOT ESTABLISHED); CHOLESTEROL, BODY FLUID < 50 MG/DL (NOT ESTABLISHED); LDH, BODY FLUID 112 U/L (NOT ESTABLISHED); SOURCE, BODY FLUID ALBUMIN PLEURAL; SOURCE, BODY FLUID AMYLASE PLEURAL; SOURCE, BODY FLUID CHOL PLEURAL; SOURCE, BODY FLUID GLUCOSE PLEURAL; SOURCE, BODY FLUID LDH PLEURAL; SOURCE, BODY FLUID TOT PROTEIN PLEURAL; SOURCE, BODY FLUID TRIG PLEURAL; TOTAL PROTEIN, BODY FLUID 2.2 G/DL (NOT ESTABLISHED); TRIGLYCERIDE, BODY FLUID 17 MG/DL (NOT ESTABLISHED)
[2018-12-23] MEDS: cefTRIAXone SOD 1 GM in D5W MINI-BAG PLUS 50 ML IV SCH (14:06)
--- NOTE | 2018-12-23 15:00 | REP ---
POST-BIOPSY CHEST: 12/23/2018. Comparison: AP portable chest earlier this date, CT chest 12/22/2018. Clinical history: Status post left thoracentesis. Findings: PA and lateral views are provided. Indwelling port catheter via the right subclavian route is again seen and unchanged. Heart is not enlarged. Aorta and airway intact. There is an esophageal stent in the middle mediastinum midchest. It extends above and below the level of the aortic arch. The left pleural effusion is much reduced. I do not see significant blunting of the CP angle on the frontal or lateral view. There is some basilar fibrotic change. Chronic opacities in the lung zhu are as before. No left-sided pneumothorax. Small right effusion suspected with slight blunting of CP angle posterolaterally. Impression: 1. Status post left thoracentesis without pneumothorax. Extensive parenchymal lung changes and indwelling right subclavian port catheter as before. The left pleural effusion is much reduced. No other change. Electronically Signed by Yandel Spain MD 12/23/2018 07:32 P
[2018-12-23] MEDS ORDERED: traMADol 50 MG TAB PO PRN (18:15)
[2018-12-23] MEDS ORDERED: KETOROLAC 30 MG/ML VIAL (J1885) IV ONE (18:30)
--- NOTE | 2018-12-23 18:44 | REP ---
KUB, ONE VIEW: HISTORY: Abdominal pain. A small amount of air is present in small and large intestine. There are no air fluid levels or dilated loops of intestine. There is no pneumoperitoneum. A PEG tube is present in the upper mid abdomen. IMPRESSION: Nonspecific bowel gas pattern. Electronically Signed by Jeremy Díaz MD 12/23/2018 06:46 P
--- NOTE | 2018-12-23 19:29 | REP ---
ULTRASOUND GUIDED LEFT THORACENTESIS The procedure was performed under the direct supervision of Dr. Spain. The risks and benefits of the procedure were explained to the patient and informed consent was obtained. The left pleural effusion was localized using ultrasound guidance. The skin was prepped and draped in a sterile fashion. 1% lidocaine was used as a local anesthetic. An 8-Serbian multi side-hole catheter was inserted using trocar technique. 795 ml of yellow fluid was withdrawn and sent to the lab for analysis. The patient tolerated the procedure well and there were no immediate complications. After the appropriate amount of monitored convalescence the patient was discharged from the department. Reviewed by ALEXA Solares 12/23/2018 05:07 P Electronically Signed by Yandel Spain MD 12/23/2018 07:19 P
[2018-12-23] MEDS: MIRALAX *UNIT DOSE* 17GM PACKET PO SCH (19:41)
[2018-12-23] MEDS: SCOPOLAMINE 1MG TRANSDERMAL PATCH TOP SCH (20:42)
[2018-12-24] VITALS (17 sets, daily range): BP systolic 78–113; BP diastolic 52–80
[2018-12-24] MEDS: MORPHINE 4 MG/ML 1ML VIAL/SYRINGE (J2270) IV PRN (03:52)
[2018-12-24 06:00] LABS: BASO % 0.3 % (0.0-1.0); EOS # 0.1 10^3/uL (0.0-0.50); HEMATOCRIT 28.7 % (42.0-52.0); HEMOGLOBIN 9.1 g/dl (13.5-17.5); LYMPH # 0.4 10^3/uL (1.5-4.5); LYMPH % 3.5 % (24.0-44.0); MEAN CORPUSCULAR HEMOGLOBIN 30.5 pg (27.0-33.0); MEAN CORPUSCULAR HGB CONC 31.7 g/dl (32.0-36.5); MEAN CORPUSCULAR VOLUME 96.3 fl (80.0-96.0); MONO # 0.7 10^3/uL (0.0-0.8); MONO % 5.9 % (0.0-5.0); NEUTROPHILS # 10.4 10^3/uL (1.8-7.7); NEUTROPHILS % 88.6 % (36.0-66.0); PLATELET COUNT, AUTOMATED 197 10^3/uL (150-450); RED BLOOD COUNT 2.98 10^6/uL (4.30-6.10); WHITE BLOOD COUNT 11.8 10^3/uL (4.0-10.0)
[2018-12-24] MEDS: FUROSEMIDE 20 MG/2 ML VIAL (J1940) IV SCH ×2 (06:00)
[2018-12-24] MEDS: SLF 3 ML SYR IV SCH ×3 (06:00→22:00)
[2018-12-24] MEDS: ONDANSETRON 4MG/2ML VIAL (J2405) IV PRN (06:01)
[2018-12-24 06:20] LABS: BLOOD UREA NITROGEN 17 MG/DL (7-18); CALCIUM LEVEL 8.5 MG/DL (8.8-10.2); CARBON DIOXIDE LEVEL 39 MEQ/L (21-32); CHLORIDE LEVEL 95 MEQ/L (98-107); GLOMERULAR FILTRATION RATE > 60.0 (>49); GLUCOSE, FASTING 104 MG/DL (70-100); POTASSIUM SERUM 3.8 MEQ/L (3.5-5.1); SODIUM LEVEL 139 MEQ/L (136-145)
[2018-12-24] MEDS: LEVOTHYROXINE 25MCG TABLET (0.025MG) PO SCH (07:00)
--- NOTE | 2018-12-24 07:44 | IPNPDOC ---
Date Seen The patient was seen on 12/24/18. Progress Note SUBJECTIVE: Pt c/o retching and an episode of emesis this morning. He was found to be lying flat with his feeding tube running. Tube feeds were immediately discontinued as pt was found to be hypoxic with o2 saturation in the 80's, given nonrebreather with improved oxygenation. CXR this am pending. s/p thoracentesis yesterday to rule out ptx. no c/o chest pain. c/o back pain. reglan changed for gastroparesis. abd xray yesterday nonspecific bowel gas pattern. CT abd posponed this am due to respiratory distress. pt able to speak in full sentences without difficulty. abdominal pain has resolved. pt denies any constipation or nausea after zofran given. PHYSICAL EXAM: VITAL SIGNS:As below GENERAL: Lying down comfortably in bed in no acute distress. HEAD: Normocephalic, atraumatic. NECK: Supple. No jugular venous distention (JVD). LUNGS: diminished. bibasilar crackles S1, S2 audible. No murmurs appreciated. ABDOMEN: Soft. Positive bowel sounds. Extremities: No pedal edema. SKIN: Intact. NEUROLOGIC: Patient awake, alert, oriented times three. Labs and Radiology: reviewed Assessment and Plan: This is a 68-year-old male with a past medical history of stage IV esophageal carcinoma, on second line chemotherapy was supposed to get cycle 3 today, radiation in sepOct 2018 , status post stent placement, hypothyroidism, chronic kidney disease (CKD) III, atrial fibrillation who pre sents to the emergency room from Dr. Diana Yi' office due to dysphagia. According to the patient, recently he has been having difficulty swallowing liquids but has been okay with solids. Patient also has apparently lost approximately 12 pounds in the last month. Dr. Wilson did the last esophagogastroduodenoscopy (EGD) in September 2018. Patient also complained of general malaise and a chronic cough and has not been using his gastrostomy (G) tube much with his Ensure that he normally takes, be cause he had been trying to have his intake in oral form, so he will be admitted for further management. Aspiration with episode of emesis/Abdominal pain, resolved good bowel sounds. no residual on tube feeds. tube feeds temporarily held due to respiratory distress most likely from pneumonitis. no fever. abd film 12/23/18 : nonspecific bowel gas pattern. on zofran and reglan. once respiratory distress resolved, will send for ct abd/pelvis. Bilateral pleural effusions . DDX : malignant pleural effusion, parapneumonic effusion, versus CHF. ECHO was wnl from 12/20/18. CT CHEST: LARGE BILATERAL PLEURAL EFFUSIONS. RML INFILTRATE INTERVAL CHANGE. After an extensive discussion with the patient and his regarding his overall poor prognosis and life expectancy of <6months, due to progressive and aggressive tumor with encroachment on the esophageal stent with complete occlusion, and NEW pulmonary metastases despite 2nd line chemotherapy regimen, with NEW ENLARGING BILATERAL PLEURAL EFFUSIONS within days of admission, Patient and his have requested to be DNR/DNI. In case of natural with no pulse and no spontaneous breathing, the patient does NOT WISH CHEST COMPRESSIONS, ELECTRICAL CARDIOVERSION, OR INTUBATION. thoracentesis and trial of diuresis if blood pressure permits. send pleural fluid analysis and cytology. If recurs, may need chest tube, pleurex catheter placement, and thoracic surgery consultation versus HOSPICE CARE. Dysphagia. due to esophageal mass and stricture above the esophageal stent with complete occlusion of the esophagus. there is also paraesophageal mass in the mediastinum will keep NPO consulted dr Katie GALDAMEZ who recommends esophageal stent and asked for pulmonary clearance and prognosis from oncology.. Per Dr. Burkett, pulmonary cannot give clearance as the patient does not have a simple treated copd or asthma that can be treated with bronchodilators. 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 If the patient has an ability to receive fluid and nutrition by any other means aside from po with an esophageal stent, it is prudent to use that alternative way of nutrition. Pulmonary can do spirometry testing, and will help with intubation and management of ventilation should this occur. use only PEG tube for continuous feeding and hydration. Per Dr. Yi, oncologist,on 12/21/18, patient has already failed first line therapy and has recently received 2nd line treatment with progression of tumor and new lung mets. It would be reasonable to discuss HOSPICE CARE. A new esophageal stent will NOT TREAT OR CURE the cancer, AND WILL NOT PROLONG HIS LIFE. It would only be for QUALITY OF LIFE, to be able to taste and enjoy food. LIFE EXPECTANCY is <6months. Sinus tachycardia having low grade fever and infection going on may be due to cancer itself also if continues to be tachycardic and febrile will expand antibiotic coverage. 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 HER2 positive, currently on Ramucirumab/Paclitaxel begun October 2018 as second-line treatment. Original metastatic diagnosis December 2017 with adenocarcinoma on esophageal nodule biopsy, HER2 positive. Multiple lung nodules, right lung biopsy confirming moderate to poorly differentiated adenocarcinoma consistent with esophageal primary. Status post cisplatin/5-FU/traztuzumab treatment December 2017 with response demonstrated in May, completed total six cycles May 2018 and continued on single-agent trastuzumab until August 2018. However, restaging in late July 2018 showed disease progression in lung metastases. He received radiation to the esophagus September to October 2018 and started ramucirumab/paclitaxel in October. consulted dr Katie GALDAMEZ who recommends esophageal stent and asked for pulmonary clearance and prognosis from oncology.. Per Dr. Burkett, pulmonary cannot give clearance as the patient does not have a simple treated copd or asthma that can be treated with bronchodilators. 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 If the patient has an ability to receive fluid and nutrition by any other means aside from po with an esophageal stent, it is prudent to use that alternative way of nutrition. Pulmonary can do spirometry testing, and will help with intubation and management of ventilation should this occur. use only PEG tube for continuous feeding and hydration. Per Dr. Yi, oncologist,on 12/21/18, patient has already failed first line therapy and has recently received 2nd line treatment with progression of tumor and new lung mets. It would be reasonable to discuss HOSPICE CARE. A new esophageal stent will NOT TREAT OR CURE the cancer, AND WILL NOT PROLONG HIS LIFE. It would only be for QUALITY OF LIFE, to be able to taste and enjoy food. LIFE EXPECTANCY is <6months. poor prognosis. Malnutrition. Intake through PEG tube continuous feeding consulted dr Katie GALDAMEZ who recommends esophageal stent and asked for pulmonary clearance and prognosis from oncology.. Per Dr. Burkett, pulmonary cannot give clearance as the patient does not have a simple treated copd or asthma that can be treated with bronchodilators. 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 If the patient has an ability to receive fluid and nutrition by any other means aside from po with an esophageal stent, it is prudent to use that alternative way of nutrition. Pulmonary can do spirometry testing, and will help with intubation and management of ventilation should this occur. use only PEG tube for continuous feeding and hydration. Per Dr. Yi, oncologist,on 12/21/18, patient has already failed first line therapy and has recently received 2nd line treatment with progression of tumor and new lung mets. It would be reasonable to discuss HOSPICE CARE. A new esophageal stent will NOT TREAT OR CURE the cancer, AND WILL NOT PROLONG HIS LIFE. It would only be for QUALITY OF LIFE, to be able to taste and enjoy food. LIFE EXPECTANCY is <6months. Acute bronchitis. antibiotic changed from levofloxacin to ceftriaxone due to nausea, vomiting and tachycardia. blood cultures negative till date. resp panel is negative. Atrial fibrillation continue amiodarone and ASA not on any anticoagulation CKD stage 3 stable. Hypothyroid continue synthroid DVT prophylaxis ordered. CODE STATUS: DO NOT RESUSCITATE DO NOT INTUBATE. VS, I&O, 24H, Fishbone Vital Signs/I&O Vital Signs Date Time Temp Pulse Resp B/P (MAP) Pulse Ox O2 Delivery O2 Flow Rate FiO2 12/24/18 04:33 18 12/24/18 04:00 1.0 12/23/18 23:59 98.7 82 98/54 (69) 93 I&O- Last 24 Hours up to 6 AM 12/24/18 06:00 Intake Total 920 ml Output Total 1975 ml Balance -1055 ml Laboratory Data 24H LABS Laboratory Tests 2 12/23/18 05:58: Immature Granulocyte % (Auto) 1.6, White Blood Count 9.2, Red Blood Count 3.26L, Hemoglobin 9.9L, Hematocrit 31.5L, Mean Corpuscular Volume 96.6H, Mean Corpuscular Hemoglobin 30.4, Mean Corpuscular Hemoglobin Concent 31.4L, Red Cell Distribution Width 16.7H, Platelet Count 224, Neutrophils (%) (Auto) 82.5H, Lymphocytes (%) (Auto) 6.5L, Monocytes (%) (Auto) 8.0H, Eosinophils (%) (Auto) 0.9, Basophils (%) (Auto) 0.5, Neutrophils # (Auto) 7.6, Lymphocytes # (Auto) 0.6L, Monocytes # (Auto) 0.7, Eosinophils # (Auto) 0.1, Basophils # (Auto) 0.1, Nucleated Red Blood Cells % (auto) 0.0, Anion Gap 4L, Glomerular Filtration Rate > 60.0, Blood Urea Nitrogen 13, Creatinine 1.02, Sodium Level 137, Potassium Level 3.8, Chloride Level 97L, Carbon Dioxide Level 36H, Calcium Level 8.8, Total Creatine Kinase 16L, Magnesium Level 2.0, Creatine Kinase MB < 1.0, Creatine Kinase MB Relative Index 6.25H, Troponin I < 0.02, YK-Ldi-M-Type Natriuretic Peptide 2271H 12/23/18 11:32: Bedside Glucose (Misc Panel) 72L 12/23/18 12:03: Body Fluid pH 7.596, Body Fluid pH Source PLEURAL, Body Fluid WBC (Auto) 367H, Body Fluid RBC (Auto) < 2, Body Fluid Mononuclear Cells % Auto 74.4H, Fluid Polymorphonuclear Cell % Auto 25.6H, Body Fluid Glucose Source PLEURAL, Body Fluid Glucose 103, Body Fluid Protein Source PLEURAL, Body Fluid Total Protein 2.2, Body Fluid Albumin Source PLEURAL, Body Fluid Albumin 1.1, Body Fluid LDH Source PLEURAL, Body Fluid Lactate Dehydrogenase 112, Body Fluid Amylase Source PLEURAL, Body Fluid Amylase 12, Body Fluid Cholesterol < 50, Body Fluid Cholesterol Source PLEURAL, Body Fluid Triglyceride Source PLEURAL, Body Fluid Triglycerides 17, Pleural Fluid Source PLEURAL, Pleural Fluid Color PALE YELLOW, Pleural Fluid Appearance HAZY 12/23/18 18:39: Lactic Acid Level 0.8 CBC/BMP Laboratory Tests 12/23/18 05:58 Red Blood Count 3.26 L, Mean Corpuscular Volume 96.6 H, Mean Corpuscular Hemoglobin 30.4, Mean Corpuscular Hemoglobin Concent 31.4 L, Red Cell Distribution Width 16.7 H, Neutrophils (%) (Auto) 82.5 H, Lymphocytes (%) (Auto) 6.5 L, Monocytes (%) (Auto) 8.0 H, Eosinophils (%) (Auto) 0.9, Basophils (%) (Auto) 0.5, Neutrophils # (Auto) 7.6, Lymphocytes # (Auto) 0.6 L, Monocytes # (Auto) 0.7, Eosinophils # (Auto) 0.1, Basophils # (Auto) 0.1, Calcium Level 8.8, Total Creatine Kinase 16 L Microbiology Microbiology 12/16/18 Blood Culture - Final, Complete NO GROWTH AFTER 5 DAYS 12/16/18 Blood Culture - Final, Complete NO GROWTH AFTER 5 DAYS 12/23/18 Acid Fast Stain, Received Pending 12/23/18 Mycobacterial Culture, Received Pending 12/23/18 Fungal Smear, Received Pending 12/23/18 Fungal Culture, Received Pending 12/23/18 Gram Stain - Final, Resulted 12/23/18 Anaerobic Culture, Resulted Pending 12/23/18 Body Fluid Culture, Received Pending 12/16/18 Respiratory Virus Panel (PCR) ([facility]) - Final, Complete 12/16/18 Gram Stain - Final, Complete 12/16/18 Sputum Culture - Final, Complete Streptococcus Pneumoniae Klebsiella Pneumoniae Staphylococcus Aureus Yeast Like Organism ARLETTE VILLANUEVA MD Dec 24, 2018 05:44
--- NOTE | 2018-12-24 08:25 | REP ---
AP PORTABLE CHEST: 12/25/2018. Comparison: Post-biopsy chest 12/23/2018, portable chest 12/23/2018, CT angiogram 12/22/2018. Clinical history: Rule out pneumothorax status post a left thoracentesis yesterday. Findings: Indwelling right jugular port catheter and a esophageal stent are again seen. There are bibasilar fibrotic or atelectatic changes with superimposed heavier atelectasis or infiltrate on the left compared to right. Small left effusion noted with the CP angle again blunted. There is no pneumothorax visible. The underlying interstitial disease and bilateral diffuse patchy nodular opacities again seen and unchanged. Impression: 1. No evidence of a left pneumothorax. Chronic changes in the lung zhu with heavier basilar subsegmental atelectasis or infiltrates, left greater than right noted. Small effusion on the left with blunting of the CP angle again seen after clearing yesterday afternoon. Electronically Signed by Yandel Spain MD 12/24/2018 07:43 P
[2018-12-24] MEDS: AMIODARONE 200 MG TAB (PACERONE) PO SCH ×2 (09:00→12:37)
[2018-12-24] MEDS: PANTOPRAZOLE 40MG INJ (PROTONIX) (C9113) IV SCH (10:05)
[2018-12-24] MEDS: ASPIRIN 81 MG CHEW TABLET PEG SCH (10:05)
[2018-12-24] MEDS: METOCLOPRAMIDE INJ 10MG/2ML VIAL (J2765) IV SCH ×3 (10:05→22:11)
[2018-12-24] MEDS: MULTIVITAMINS/MINERALS THERAP 1 TAB PO SCH (10:05)
[2018-12-24] MEDS: cefTRIAXone SOD 1 GM in D5W MINI-BAG PLUS 50 ML IV SCH (10:06)
[2018-12-24] MEDS ORDERED: GLUCOSE 4 GM CHEW TABLET PO PRN (11:45)
[2018-12-24] MEDS ORDERED: DEXTROSE 50% 50 ML SYRINGE IV PRN (11:45)
[2018-12-24] MEDS ORDERED: GLUCAGON FOR INJ 1 MG VIAL (J1610) SC PRN (11:45)
[2018-12-24] MEDS ORDERED: NALOXONE INJ 0.4 MG/1 ML VIAL (J2310) IV STA (11:46)
[2018-12-24] MEDS ORDERED: NALOXONE INJ 0.4 MG/1 ML VIAL (J2310) IV PRN (12:00)
[2018-12-24] MEDS ORDERED: ACETAMINOPHEN 325 MG/10.15 ML UDC PO ONE (12:30)
[2018-12-24] MEDS: PIPERACILLIN/TAZOBACTAM SOD 3.375 GM in D5W MINI-BAG PLUS 50 ML IV SCH ×2 (12:37→19:25)
[2018-12-24 13:38] LABS: ABG O2 SATURATION 98.2 % (95.0-99.0); ABG PARTIAL PRESSURE CO2 45.2 mmHg (35.0-45.0); ABG PARTIAL PRESSURE O2 96.1 mmHg (75.0-100.0); ABG STANDARD HCO3 35.7 MEQ/L (22.0-26.0); ABG TOTAL CO2 37.4 MEQ/L (23.0-31.0); ABG pH (ARTERIAL) 7.519 UNITS (7.350-7.450)
[2018-12-24] MEDS ORDERED: ISOVUE-370 76% 100ML VIAL (Q9967) As Ordered ONE (14:54)
[2018-12-24] MEDS ORDERED: NS 250 ML IV ONE ×2 (15:15→16:15)
[2018-12-24 16:35] LABS: CALCIUM LEVEL 8.5 MG/DL (8.8-10.2); CREATININE FOR GFR 1.3 MG/DL (0.70-1.30); GLOMERULAR FILTRATION RATE 58.8 (>49); POTASSIUM SERUM 3.8 MEQ/L (3.5-5.1)
[2018-12-24] MEDS ORDERED: NS 1,000 ML IV ONE ×2 (16:45→21:15)
--- NOTE | 2018-12-24 19:25 | REPVR ---
EXAM: CT Angiography Abdomen and Pelvis With Contrast EXAM DATE/TIME: 12/24/2018 6:27 PM CLINICAL HISTORY: 68 years old, male; Pain; Abdominal pain; Generalized; Additional info: Afib abd pain R/O mesenteric ischemia TECHNIQUE: Axial computed tomographic angiography images of the abdomen and pelvis with intravenous contrast material, including non-contrast images if performed. MIP and/or 3D reconstructed images were created and reviewed. All CT scans at this facility use at least one of these dose optimization techniques: automated exposure control; mA and/or kV adjustment per patient size (includes targeted exams where dose is matched to clinical indication); or iterative reconstruction. Coronal and sagittal reformatted images were created and reviewed. COMPARISON: CT ABD PELVIS W/O FOL BY WIT 05/21/2018 10:18 AM FINDINGS: ABDOMEN: Abdominal aorta is normal in caliber. No aneurysm or dissection. Normal luminal caliber and enhancement of the celiac trunk, SMA, main right and left renal arteries and MARIANNA. Iliac arteries show atherosclerotic change but normal luminal caliber through the inguinal ligament level. Moderate dependent bilateral pleural effusions are present. Areas of scarring and reticulonodular infiltrates are seen in both lung bases, with a subtle masslike component involving the right middle lobe anteriorly measuring 15 mm. Liver, spleen, gallbladder, pancreas and adrenal glands are unremarkable. Kidneys appear normal, with no stone, solid mass or hydronephrosis. Gastrostomy tube is positioned over the left upper quadrant. No evidence of bowel obstruction, pneumoperitoneum or free abdominal fluid. PELVIS: No abnormal colonic wall thickening or pericolonic inflammation. Normal caliber appendix is identified, with no adjacent inflammation. No evidence of acute diverticulitis. Bladder appears normal. No effacement of normal fat planes in the ischiorectal fossa. Degenerative changes are seen in the lumbar spine with disc height loss, endplate osteophytes and hypertrophic facet arthropathy. IMPRESSION: Mild atherosclerotic change of aorta and branch vessels with no evidence of aneurysm, dissection or aortic branch vessel flow-limiting stenosis. No evidence of bowel inflammatory or ischemic process. Bilateral pleural effusions and reticulonodular interstitial infiltrates in the lungs. Focal ill-defined masslike component in the right middle lobe and right lower lobe. Likely infectious or inflammatory since they were not present in May. This was evaluated on the CT angiogram chest report from 2 days ago Electronically signed by: Giovany Abrams On 12/24/2018 19:24:49 PM
[2018-12-24] MEDS: VANCOMYCIN HCL 1,000 MG, VIAL MATE ADAPTER 1 EACH in D5W 250 ML IV SCH (20:57)
[2018-12-24] MEDS: ACETAMINOPHEN 325 MG/10.15 ML UDC GT PRN (22:10)
[2018-12-24] MEDS: MIRALAX *UNIT DOSE* 17GM PACKET PO SCH (22:11)
[2018-12-24] MEDS ORDERED: D5W/0.45% SODIUM CHLORIDE 1,000 ML IV SCH (23:00)
[2018-12-25] VITALS (7 sets, daily range): BP systolic 104–132; BP diastolic 57–77
[2018-12-25] MEDS: PIPERACILLIN/TAZOBACTAM SOD 3.375 GM in D5W MINI-BAG PLUS 50 ML IV SCH ×4 (00:58→18:23)
[2018-12-25] MEDS: MORPHINE 4 MG/ML 1ML VIAL/SYRINGE (J2270) IV PRN ×3 (01:00→15:44)
[2018-12-25 04:19] LABS: BASO % 0.2 % (0.0-1.0); EOS # 0.1 10^3/uL (0.0-0.50); EOS % 0.7 % (0.0-3.0); HEMATOCRIT 25.7 % (42.0-52.0); LYMPH # 0.5 10^3/uL (1.5-4.5); LYMPH % 2.9 % (24.0-44.0); MEAN CORPUSCULAR HEMOGLOBIN 30.3 pg (27.0-33.0); MEAN CORPUSCULAR HGB CONC 31.1 g/dl (32.0-36.5); MEAN CORPUSCULAR VOLUME 97.3 fl (80.0-96.0); MONO # 0.7 10^3/uL (0.0-0.8); MONO % 4.2 % (0.0-5.0); NEUTROPHILS # 16.1 10^3/uL (1.8-7.7); NEUTROPHILS % 91.3 % (36.0-66.0); PLATELET COUNT, AUTOMATED 154 10^3/uL (150-450); RED BLOOD COUNT 2.64 10^6/uL (4.30-6.10); WHITE BLOOD COUNT 17.6 10^3/uL (4.0-10.0)
[2018-12-25] MEDS: VANCOMYCIN HCL 1,000 MG, VIAL MATE ADAPTER 1 EACH in D5W 250 ML IV SCH ×2 (04:37→16:57)
[2018-12-25] MEDS: METOCLOPRAMIDE INJ 10MG/2ML VIAL (J2765) IV SCH ×4 (04:37→21:42)
[2018-12-25 04:39] LABS: BLOOD UREA NITROGEN 18 MG/DL (7-18); CALCIUM LEVEL 8.1 MG/DL (8.8-10.2); CARBON DIOXIDE LEVEL 36 MEQ/L (21-32); CHLORIDE LEVEL 98 MEQ/L (98-107); CREATININE FOR GFR 1.17 MG/DL (0.70-1.30); GLOMERULAR FILTRATION RATE > 60.0 (>49); GLUCOSE, FASTING 95 MG/DL (70-100); POTASSIUM SERUM 3.6 MEQ/L (3.5-5.1); SODIUM LEVEL 139 MEQ/L (136-145)
[2018-12-25] MEDS: SLF 3 ML SYR IV SCH ×3 (05:02→21:43)
[2018-12-25] MEDS: LEVOTHYROXINE 25MCG TABLET (0.025MG) PEG SCH (06:08)
--- NOTE | 2018-12-25 07:19 | REPVR ---
EXAM: XR Chest, 1 View EXAM DATE/TIME: 12/25/2018 6:16 AM CLINICAL HISTORY: 68 years old, male; Signs and symptoms; Other: SOB TECHNIQUE: XR of the chest, 1 view. COMPARISON: CR PORTABLE CHEST X-RAY 12/24/2018 7:13 AM FINDINGS: Tubes, catheters and devices: A right Port-A-Cath is unchanged. Lungs: Increased bibasilar infiltrates, left greater than right. Pleural space: Question of minimal left pleural effusion which appears decreased. Heart/Mediastinum: The heart and mediastinum are unchanged. An esophageal stent is again noted. Bones/joints: Unremarkable. IMPRESSION: 1. Increased bibasilar infiltrates, left greater than right since 12/24/2018. 2. Slightly decreased left pleural effusion. 3. Otherwise stable chest. Electronically signed by: Marbin Garcia On 12/25/2018 07:18:49 AM
[2018-12-25] MEDS: ASPIRIN 81 MG CHEW TABLET PEG SCH (08:34)
[2018-12-25] MEDS: PANTOPRAZOLE 40MG INJ (PROTONIX) (C9113) IV SCH (08:34)
[2018-12-25] MEDS: AMIODARONE 200 MG TAB (PACERONE) PEG SCH ×2 (08:35→21:43)
[2018-12-25] MEDS: MULTIVITAMINS/MINERALS THERAP 1 TAB PO SCH (08:35)
[2018-12-25] MEDS: ACETAMINOPHEN 325 MG/10.15 ML UDC GT PRN ×2 (08:39→21:42)
[2018-12-25 09:03] LABS: ERYTHROCYTE SEDIMENTATION RATE 127 mm/hr (0-20)
--- NOTE | 2018-12-25 10:34 | IPNPDOC ---
Date Seen The patient was seen on 12/25/18. Progress Note SUBJECTIVE: Ct abd angio: no mesenteric embolism. Pt has remained afebrile since changing abx to hcap coverage zosyn and vanco. mrsa screen pending. He feels better today, but still with slight abd pain. no ptx on repeat cxr yesterday. still sob and weak. no chest pain, dizziness, or lightheadedness. s/p ivfluid boluses for sbp 80 yesterday and sepsis. PHYSICAL EXAM: VITAL SIGNS:As below GENERAL: Lying down comfortably in bed in no acute distress. HEAD: Normocephalic, atraumatic. NECK: Supple. No jugular venous distention (JVD). LUNGS: diminished. bibasilar crackles S1, S2 audible. No murmurs appreciated. ABDOMEN: Soft. Positive bowel sounds. Extremities: (+) edema SKIN: Intact. NEUROLOGIC: Patient awake, alert, oriented times three. Labs and Radiology: reviewed Assessment and Plan: This is a 68-year-old male with a past medical history of stage IV esophageal carcinoma, on second line chemotherapy was supposed to get cycle 3 today, radiation in sepOct 2018 , status post stent placement, hypothyroidism, chronic kidney disease (CKD) III, atrial fibrillation who presents to the emergency room from Dr. Diana Yi' office due to dysphagia. According to the patient, recently he has been having difficulty swallowing liquids but has been okay with solids. Patient also has apparently lost approximately 12 pounds in the last month. Dr. Wilson did the last esophagogastroduodenoscopy (EGD) in September 2018. Patient also complained of general malaise and a chronic cough and has not been using his gastrostomy (G) tube much with his Ensure that he normally takes, because he had been trying to have his intake in oral form, so he will be admitted for further management. Aspiration with episode of emesis/Abdominal pain, resolved good bowel sounds. no residual on tube feeds. tube feeds temporarily held due to respiratory distress most likely from pneumonitis. no fever. abd film 12/23/18 : nonspecific bowel gas pattern. on zofran and reglan. once respiratory distress resolved, will send for ct abd/pelvis. Bilateral pleural effusions cytology (+) malignant pleural effusion, ECHO was wnl from 12/20/18. CT CHEST: LARGE BILATERAL PLEURAL EFFUSIONS. RML INFILTRATE INTERVAL CHANGE. After an extensive discussion with the patient and his regarding his overal l poor prognosis and life expectancy of <6months, due to progressive and aggressive tumor with encroachment on the esophageal stent with complete occlusion, and NEW pulmonary metastases despite 2nd line chemotherapy regimen, with NEW ENLARGING BILATERAL PLEURAL EFFUSIONS within days of admission, Patient and his have requested to be DNR/DNI. In case of natural with no pulse and no spo ntaneous breathing, the patient does NOT WISH CHEST COMPRESSIONS, ELECTRICAL CARDIOVERSION, OR INTUBATION. thoracentesis and trial of diuresis if blood pressure permits. sent pleural fluid analysis and cytology. If recurs, may need chest tube, pleurex catheter placement, and thoracic surgery consultation versus HOSPICE CARE. Dysphagia. due to esophageal mass and stricture above the esophageal stent with complete occlusion of the esophagus. there is also paraesophageal mass in the mediastinum will keep NPO consulted dr aKtie GALDAMEZ who recommends esophageal stent and asked for pu lmonary clearance and prognosis from oncology.. Per Dr. Burkett, pulmonary cannot give clearance as the patient does not have a simple treated copd or asthma that can be treated with bronchodilators. 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 If the patient has an ability to receive fluid and nutrition by any other means aside from po with an esophageal stent, it is prudent to use that alternative way of nutrition. Pulmonary can do spirometry testing, and will help with intubation and management of ventilation should this occur. use only PEG tube for continuous feeding and hydration. Per Dr. Yi, oncologist,on 12/21/18, patient has already failed first line therapy and has recently received 2nd line treatment with progression of tumor and new lung mets. It would be reasonable to discuss HOSPICE CARE. A new esophageal stent will NOT TREAT OR CURE the cancer, AND WILL NOT PROLONG HIS LIFE. It would only be for QUALITY OF LIFE, to be able to taste and enjoy food. LIFE EXPECTANCY is <6months. Sinus tachycardia having low grade fever and infection going on may be due to cancer itself also if continues to be tachycardic and febrile will expand antibiotic coverage. 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 HER2 positive, currently on Ramucirumab/Paclitaxel begun October 2018 as second-line treatment. Original metastatic diagnosis December 2017 with adenocarcinoma on esophageal nodule biopsy, HER2 positive. Multiple lung nodules, right lung biopsy confirming moderate to poorly differentiated adenocarcinoma consistent with esophageal primary. Status post cisplatin/5-FU/traztuzumab treatment December 2017 with response demonstrated in May, completed total six cycles May 2018 and continued on single-agent trastuzumab until August 2018. However, restaging in late July 2018 showed disease progression in lung metastases. He received radiation to the esophagus September to October 2018 and started ramucirumab/paclitaxel in October. consulted dr Katie GALDAMEZ who recommends esophageal stent and asked for pulmonary clearance and prognosis from oncology.. Per Dr. Burkett, pulmonary cannot give clearance as the patient does not have a simple treated copd or asthma that can be treated with bronchodilators. 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 If the patient has an ability to receive fluid and nutrition by any other means aside from po with an esophageal stent, it is prudent to use that alternative way of nutrition. Pulmonary can do spirometry testing, and will help with intubation and management of ventilation should this occur. use only PEG tube for continuous feeding and hydration. Per Dr. Yi, oncologist,on 12/21/18, patient has already failed first line therapy and has recently received 2nd line treatment with progression of tumor and new lung mets. It would be reasonable to discuss HOSPICE CARE. A new esophageal stent will NOT TREAT OR CURE the cancer, AND WILL NOT PROLONG HIS LIFE. It would only be for QUALITY OF LIFE, to be able to taste and enjoy food. LIFE EXPECTANCY is <6months. poor prognosis. Malnutrition. Intake through PEG tube continuous feeding consulted dr Katie GALDAMEZ who recommends esophageal stent and asked for pulmonary clearance and prognosis from oncology.. Per Dr. Burkett, pulmonary cannot give clearance as the patient does not have a simple treated copd or asthma that can be treated with bronchodilators. 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 If the patient has an ability to receive fluid and nutrition by any other means aside from po with an esophageal stent, it is prudent to use that alternative way of nutrition. Pulmonary can do spirometry testing, and will help with intubation and management of ventilation should this occur. use only PEG tube for continuous feeding and hydration. Per Dr. Yi, oncologist,on 12/21/18, patient has already failed first line therapy and has recently received 2nd line treatment with progression of tumor and new lung mets. It would be reasonable to discuss HOSPICE CARE. A new esophageal stent will NOT TREAT OR CURE the cancer, AND WILL NOT PROLONG HIS LIFE. It would only be for QUALITY OF LIFE, to be able to taste and enjoy food. LIFE EXPECTANCY is <6months. Abdominal pain with h/o Afib, ischemia ruled out 12/24/18 with normal lactic acid level and no embolism on CT angio abd /pelvis. Acute bronchitis. antibiotic changed from levofloxacin to ceftriaxone due to nausea, vomiting and tachycardia. blood cultures negative till date. resp panel is negative. Atrial fibrillation continue amiodarone and ASA not on any anticoagulation CKD stage 3 stable. Hypothyroid continue synthroid DVT prophylaxis ordered. CODE STATUS: DO NOT RESUSCITATE DO NOT INTUBATE. Prognosis: poor, appropriate for Hospice, but pt and requesting full treatment. VS, I&O, 24H, Fishbone Vital Signs/I&O Vital Signs Date Time Temp Pulse Resp B/P (MAP) Pulse Ox O2 Delivery O2 Flow Rate FiO2 12/25/18 08:00 98.8 77 18 104/57 (73) 94 3.0 I&O- Last 24 Hours up to 6 AM 12/25/18 06:00 Intake Total 2370 ml Output Total 825 ml Balance 1545 ml Laboratory Data 24H LABS Laboratory Tests 2 12/24/18 11:53: Lactic Acid Level 0.9, Ammonia 32 12/24/18 12:54: Bedside Glucose (Misc Panel) 90 12/24/18 13:20: Blood Gas Bicarbonate Standard 35.7H, Arterial Blood pH 7.519H, Arterial Blood Partial Pressure CO2 45.2H, Arterial Blood Partial Pressure O2 96.1, Arterial Blood Total CO2 37.4H, Arterial Blood HCO3 36.0H, Arterial Blood Base Excess 12.0H, Arterial Blood Oxygen Saturation 98.2 12/24/18 16:03: Anion Gap 5L, Glomerular Filtration Rate 58.8, Blood Urea Nitrogen 21H, Creatinine 1.30, Sodium Level 139, Potassium Level 3.8, Chloride Level 96L, Carbon Dioxide Level 38H, Calcium Level 8.5L 12/24/18 18:41: Bedside Glucose (Misc Panel) 87 12/24/18 23:54: Bedside Glucose (Misc Panel) 86 12/25/18 03:58: Immature Granulocyte % (Auto) 0.7, White Blood Count 17.6H, Red Blood Count 2.64L, Hemoglobin 8.0L, Hematocrit 25.7L, Mean Corpuscular Volume 97.3H, Mean Corpuscular Hemoglobin 30.3, Mean Corpuscular Hemoglobin Concent 31.1L, Red Cell Distribution Width 17.2H, Platelet Count 154, Neutrophils (%) (Auto) 91.3H, Lymphocytes (%) (Auto) 2.9L, Monocytes (%) (Auto) 4.2, Eosinophils (%) (Auto) 0.7, Basophils (%) (Auto) 0.2, Neutrophils # (Auto) 16.1H, Lymphocytes # (Auto) 0.5L, Monocytes # (Auto) 0.7, Eosinophils # (Auto) 0.1, Basophils # (Auto) 0.0, Nucleated Red Blood Cells % (auto) 0.0, Erythrocyte Sedimentation Rate 127H, Anion Gap 5L, Glomerular Filtration Rate > 60.0, Blood Urea Nitrogen 18, Creatinine 1.17, Sodium Level 139, Potassium Level 3.6, Chloride Level 98, Carbon Dioxide Level 36H, Calcium Level 8.1L, C-Reactive Protein, Quantitative 16.00H CBC/BMP Laboratory Tests 12/24/18 16:03 Calcium Level 8.5 L 12/25/18 03:58 Calcium Level 8.1 L, Red Blood Count 2.64 L, Mean Corpuscular Volume 97.3 H, Mean Corpuscular Hemoglobin 30.3, Mean Corpuscular Hemoglobin Concent 31.1 L, Red Cell Distribution Width 17.2 H, Neutrophils (%) (Auto) 91.3 H, Lymphocytes (%) (Auto) 2.9 L, Monocytes (%) (Auto) 4.2, Eosinophils (%) (Auto) 0.7, Basophils (%) (Auto) 0.2, Neutrophils # (Auto) 16.1 H, Lymphocytes # (Auto) 0.5 L, Monocytes # (Auto) 0.7, Eosinophils # (Auto) 0.1, Basophils # (Auto) 0.0 Microbiology Microbiology 12/16/18 Blood Culture - Final, Complete NO GROWTH AFTER 5 DAYS 12/16/18 Blood Culture - Final, Complete NO GROWTH AFTER 5 DAYS 12/23/18 Acid Fast Stain, Received Pending 12/23/18 Mycobacterial Culture, Received Pending 12/23/18 Fungal Smear, Received Pending 12/23/18 Fungal Culture, Received Pending 12/23/18 Gram Stain - Final, Complete 12/23/18 Anaerobic Culture - Final, Complete 12/23/18 Body Fluid Culture - Final, Complete 12/24/18 MRSA Screen, Received Pending 12/16/18 Respiratory Virus Panel (PCR) ([facility]) - Final, Complete 12/16/18 Gram Stain - Final, Complete 12/16/18 Sputum Culture - Final, Complete Streptococcus Pneumoniae Klebsiella Pneumoniae Staphylococcus Aureus Yeast Like Organism ARLETTE VILLANUEVA MD Dec 25, 2018 10:34
[2018-12-25] MEDS: MIRALAX *UNIT DOSE* 17GM PACKET PEG SCH (21:43)
[2018-12-26] MEDS: PIPERACILLIN/TAZOBACTAM SOD 3.375 GM in D5W MINI-BAG PLUS 50 ML IV SCH ×4 (00:22→18:21)
[2018-12-26] MEDS: MORPHINE 4 MG/ML 1ML VIAL/SYRINGE (J2270) IV PRN ×5 (00:23→21:18)
[2018-12-26 04:00] VITALS: BP 137/72
[2018-12-26] MEDS: METOCLOPRAMIDE INJ 10MG/2ML VIAL (J2765) IV SCH ×4 (04:29→21:18)
[2018-12-26 04:47] LABS: BASO % 0.3 % (0.0-1.0); EOS # 0.1 10^3/uL (0.0-0.50); EOS % 1.2 % (0.0-3.0); HEMATOCRIT 28.1 % (42.0-52.0); HEMOGLOBIN 8.8 g/dl (13.5-17.5); LYMPH # 0.5 10^3/uL (1.5-4.5); LYMPH % 4.6 % (24.0-44.0); MEAN CORPUSCULAR HEMOGLOBIN 30.4 pg (27.0-33.0); MEAN CORPUSCULAR HGB CONC 31.3 g/dl (32.0-36.5); MEAN CORPUSCULAR VOLUME 97.2 fl (80.0-96.0); MONO # 0.6 10^3/uL (0.0-0.8); MONO % 5.3 % (0.0-5.0); NEUTROPHILS # 10.3 10^3/uL (1.8-7.7); NEUTROPHILS % 87.9 % (36.0-66.0); PLATELET COUNT, AUTOMATED 202 10^3/uL (150-450); RED BLOOD COUNT 2.89 10^6/uL (4.30-6.10); WHITE BLOOD COUNT 11.8 10^3/uL (4.0-10.0)
[2018-12-26 05:09] LABS: BLOOD UREA NITROGEN 14 MG/DL (7-18); CARBON DIOXIDE LEVEL 35 MEQ/L (21-32); CHLORIDE LEVEL 99 MEQ/L (98-107); CREATININE FOR GFR 1.03 MG/DL (0.70-1.30); GLOMERULAR FILTRATION RATE > 60.0 (>49); GLUCOSE, FASTING 76 MG/DL (70-100); POTASSIUM SERUM 3.3 MEQ/L (3.5-5.1); SODIUM LEVEL 140 MEQ/L (136-145)
[2018-12-26] MEDS: SLF 3 ML SYR IV SCH ×3 (05:23→20:16)
[2018-12-26] MEDS: VANCOMYCIN HCL 1,000 MG, VIAL MATE ADAPTER 1 EACH in D5W 250 ML IV SCH ×2 (05:23→16:19)
[2018-12-26] MEDS: LEVOTHYROXINE 25MCG TABLET (0.025MG) PEG SCH (05:23)
[2018-12-26] MEDS ORDERED: POTASSIUM CHLORIDE 10% LIQ 20 MEQ/15 ML UDC PEG ONE (06:00)
--- NOTE | 2018-12-26 06:01 | PHACANCOPD ---
PHARMACY VANCOMYCIN DOSING Pt Demographics Demographics Patient Age:68 , Weight:77.700 , Gender: male Adjusted Body Weight Date: 12/26/18, Adjusted Body Weight: Kg Vancomycin Vancomycin indication: HCAP/SEPSIS Vancomycin Target Ranges: 10-20 mcg/ml Vancomycin Load Y/N: No Load Dose Date Time Vancomycin Load Dose: Date: Time: Vancomycin Dose Date: 12/26/18. Current Vancomycin Dose: Intermittent Dosing?: No Labs Labs Laboratory Tests 12/26/18 03:47 Red Blood Count 2.89 L, Mean Corpuscular Volume 97.2 H, Mean Corpuscular Hemoglobin 30.4, Mean Corpuscular Hemoglobin Concent 31.3 L, Red Cell Distribution Width 17.2 H, Neutrophils (%) (Auto) 87.9 H, Lymphocytes (%) (Auto) 4.6 L, Monocytes (%) (Auto) 5.3 H, Eosinophils (%) (Auto) 1.2, Basophils (%) (Auto) 0.3, Neutrophils # (Auto) 10.3 H, Lymphocytes # (Auto) 0.5 L, Monocytes # (Auto) 0.6, Eosinophils # (Auto) 0.1, Basophils # (Auto) 0.0, Calcium Level 9.0 Micro Microbiology 12/16/18 Blood Culture - Final, Complete NO GROWTH AFTER 5 DAYS 12/16/18 Blood Culture - Final, Complete NO GROWTH AFTER 5 DAYS 12/23/18 Acid Fast Stain, Received Pending 12/23/18 Mycobacterial Culture, Received Pending 12/23/18 Fungal Smear, Received Pending 12/23/18 Fungal Culture, Received Pending 12/23/18 Gram Stain - Final, Complete 12/23/18 Anaerobic Culture - Final, Complete 12/23/18 Body Fluid Culture - Final, Complete 12/24/18 MRSA Screen - Final, Complete 12/16/18 Respiratory Virus Panel (PCR) ([facility]) - Final, Complete 12/16/18 Gram Stain - Final, Complete 12/16/18 Sputum Culture - Final, Complete Streptococcus Pneumoniae Klebsiella Pneumoniae Staphylococcus Aureus Yeast Like Organism Creatinine Clearance Date:12/26/18. Creatinine Clearance: [77.5].CALCULATED Assessment and Plan Maintaining Current Dose?: Yes Reason for dose change: No Dose Change Pharmacist Note Pharmacist Note Date: 12/26/18. Pharmacist note:Vancomycin trough drawn this morning @3:47 reported as 16.1 (goal=10-20), SCR=1.03,Calculated CRCL=77.5.Will continue Vancomycin 1 GM IV Q12H .Patient also remains on Pip/Tazo 3.375 [id number].Will continue to follow [facility] Dec 26, 2018 06:01
[2018-12-26 08:00] VITALS: BP 121/72
--- NOTE | 2018-12-26 09:08 | IPNPDOC ---
Date Seen The patient was seen on 12/26/18. Progress Note SUBJECTIVE: Pt requesting to eat, but aspiration risk and blocked esophageal stent with tumor cells. clinically unstable to proceed with esophageal stent placement due to ongoing healthcare associated /aspiration pneumonia with hypoxia, s/p afib w rvr, bilateral malignant effusions s/p thoracentesis. still c/o sob but improved since thoracentesis. afebrile and decreasing white count. no abd pain, nausea, or vomiting. Pt refused tube feedings,and insisted on bolus tid ensure which he usuallyuses at home, which has been resumed . no other issues on telemetry. no other overnight issues per RN. PHYSICAL EXAM: VITAL SIGNS:As below GENERAL: Lying down comfortably in bed in no acute distress. answering questions appropriately. no use of accessory respiratory muscles. HEAD: Normocephalic, atraumatic. NECK: Supple. No jugular venous distention (JVD). LUNGS: diminished. bibasilar crackles S1, S2 audible. No murmurs appreciated. ABDOMEN: Soft. Positive bowel sounds. feeding tube intact no erythema or tenderness Extremities: (+) edema SKIN: Intact. NEUROLOGIC: Patient awake, alert, oriented times three. Labs and Radiology: reviewed Assessment and Plan: This is a 68-year-old male with a past medical history of stage IV esophageal carcinoma, on second line chemotherapy was supposed to get cycle 3 today, radiation in sepOct 2018 , status post stent placement, hypothyroidism, chronic kidney disease (CKD) III, atrial fibrillation who presents to the emergency room from Dr. Diana Yi' office due to dysphagia. According to the patient, recently he has been having difficulty swallowing liquids but has been okay with solids. Patient also has apparently lost approximately 12 pounds in the last month. Dr. Wilson did the last esophagogastroduodenoscopy (EGD) in September 2018. Rola ent also complained of general malaise and a chronic cough and has not been using his gastrostomy (G) tube much with his Ensure that he normally takes, because he had been trying to have his intake in oral form, so he will be admitted for further management. Health-care associated pneumonia/ Aspiration pneumonia 12/16/18 sputum cx: klebsiella & strep pneumonia. previously on levaquin and ceftriaxone prior to aspiration due to abd pain and emesis. on broad spectrum abx vanco and zosyn with clinical improvement, less respiratory distress, improved white count, and afebrile. with episode of emesis/Abdominal pain, resolved with good bowel sounds. no residual on tube feeds. tube feeds temporarily held but resumed with ensure tid abd film 12/23/18 : nonspecific bowel gas pattern. on zofran and reglan. Bilateral pleural effusions cytology (+) malignant pleural effusion, ECHO was wnl from 12/20/18. CT CHEST: LARGE BILATERAL PLEURAL EFFUSIONS. RML INFILTRATE INTERVAL CHANGE. After an extensive discussion with the patient and his regarding his overall poor prognosis and life expectancy of <6months, due to progressive and aggressive tumor with encroachment on the esophageal stent with complete occlusion, and NEW pulmonary metastases despite 2nd line chemotherapy regimen, with NEW ENLARGING BILATERAL PLEURAL EFFUSIONS within days of admission, Patient and his have requested to be DNR/DNI. In case of natural with no pulse and no spontaneous breathing, the patient does NOT WISH CHEST COMPRESSIONS, ELECTRICAL CARDIOVERSION, OR INTUBATION. thoracentesis and trial of diuresis if blood pressure permits. sent pleural fluid analysis and cytology. If recurs, may need chest tube, pleurex catheter placement, and thoracic surgery consultation versus HOSPICE CARE. Dysphagia due to esophageal mass and stricture above the esophageal stent with complete occlusion of the esophagus. there is also paraesophageal mass in the mediastinum. will keep NPO.consulted dr Katie GALDAMEZ who recommends esophageal stent and asked for pulmonary clearance and prognosis from oncology. Per Dr. Burkett, pulmonary cannot give clearance as the patient does not have a simple treated copd or asthma that can be treated with bronchodilators. 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 If the patient has an ability to receive fluid and nutrition by any other means aside from po with an esophageal stent, it is prudent to use that alternative way of nutrition. Pulmonary can do spirometry testing, and will help with intubation and management of ventilation should this occur. use only PEG tube for continuous feeding and hydration. Per Dr. Yi, oncologist,on 12/21/18, patient has already failed first line therapy and has recently received 2nd line treatment with progression of tumor and new lung mets. It would be reasonable to discuss HOSPICE CARE. A new esophageal stent will NOT TREAT OR CURE the cancer, AND WILL NOT PROLONG HIS LIFE. It would only be for QUALITY OF LIFE, to be able to taste and enjoy food. LIFE EXPECTANCY is <6months. 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 HER2 positive, currently on Ramucirumab/Paclitaxel begun October 2018 as second-line treatment. Originalmetastatic diagnosis December 2017 with adenocarcinoma on esophageal nodulebiopsy, HER2 positive. Multiple lung nodules, right lung biopsy confirmingmoderate to poorly differentiated adenocarcinoma consistent with esophagealprimary. Status post cisplatin/5-FU/traztuzumab treatment December 2017 withresponse demonstrated in May, completed total six cycles May 2018 and continuedon single-agent trastuzumab until August 2018. However, restaging in lateJuly 2018 showed disease progression in lung metastases. He receivedradiation to the esophagus September to October 2018 and startedramucirumab/paclitaxel in October. consulted dr Katie GALDAMEZ who recommends esophageal stent and asked for pulmonary clearance and prognosis from oncology.Per Dr. Burkett, pulmonary cannot give clearance as the patient does not have a simple treated copd or asthma that can be treated with bronchodilators. Pt has a terminal metastatic esophageal cancer with pulmonary m etastasis with abnormal lung pathology and superimposed aspiration pneumonia. If the patient has an ability to receive fluid and nutrition by any other means aside from po with an esophageal stent, it is prudent to use that alternative way of nutrition. Pulmonary can do spirometry testing, and will help with intubation and management of ventilation should this occur. use only PEG tube for continuous feeding and hydration. Per Dr. Yi, oncologist,on 12/21/18, patient has already failed first line therapy and has recently received 2nd line treatment with progression of tumor and new lung mets. It would be reasonable to discuss HOSPICE CARE. A new esophageal stent will NOT TREAT OR CURE the cancer, AND WILL NOT PROLONG HIS LIFE. It would only be for QUALITY OF LIFE, to be able to taste and enjoy food. LIFE EXPECTANCY is <6months. poor prognosis. Malnutrition / Cancer Cachexia.PEG tube with ensure tid. pt refused previous recommendation from business continuity director. will re-consult on Thursday. consulted dr Katie GALDAMEZ who recommends esophageal stent and asked for pulmonary clearance and prognosis from oncology.. Per Dr. Burkett, pulmonary cannot give clearance as the patient does not have a simple treated copd or asthma that can be treated with bronchodilators. 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 If the patient has an ability to receive fluid and nutrition by any other means aside from po with an esophageal stent, it is prudent to use that alternative way of nutrition. Pulmo [facility]ikoy can do spirometry testing, and will help with intubation and management of ventilation should this occur. use only PEG tube for continuous feeding and hydration. Per Dr. Yi, oncologist,on 12/21/18, patient has already failed first line therapy and has recently received 2nd line treatment with progression of tumor and new lung mets. It would be reasonable to discuss HOSPICE CARE. A new esophageal stent will NOT TREAT OR CURE the cancer, AND WILL NOT PROLONG HIS LIFE. It would only be for QUALITY OF LIFE, to be able to taste and enjoy food. LIFE EXPECTANCY is <6months. Abdominal pain with h/o Afib, ischemia ruled out 12/24/18 with normal lactic acid level and no embolism on CT angio abd /pelvis. Atrial fibrillation continue amiodarone and ASA not on any anticoagulation CKD stage 3 stable. Hypothyroid continue synthroid DVT prophylaxis ordered. CODE STATUS: DO NOT RESUSCITATE DO NOT INTUBATE. Prognosis: poor, appropriate for Hospice, but pt and requesting full treatment. VS, I&O, 24H, Fishbone Vital Signs/I&O Vital Signs Date Time Temp Pulse Resp B/P (MAP) Pulse Ox O2 Delivery O2 Flow Rate FiO2 12/26/18 08:00 98.4 76 16 121/72 (88) 97 3.0 I&O- Last 24 Hours up to 6 AM 12/26/18 06:00 Intake Total 2300 ml Output Total 1225 ml Balance 1075 ml Laboratory Data 24H LABS Laboratory Tests 2 12/25/18 12:07: Bedside Glucose (Misc Panel) 92 12/25/18 16:40: Bedside Glucose (Misc Panel) 76L 12/26/18 00:22: Bedside Glucose (Misc Panel) 110 12/26/18 03:47: Immature Granulocyte % (Auto) 0.7, White Blood Count 11.8H, Red Blood Count 2.89L, Hemoglobin 8.8L, Hematocrit 28.1L, Mean Corpuscular Volume 97.2H, Mean Corpuscular Hemoglobin 30.4, Mean Corpuscular Hemoglobin Concent 31.3L, Red Cell Distribution Width 17.2H, Platelet Count 202, Neutrophils (%) (Auto) 87.9H, Lymphocytes (%) (Auto) 4.6L, Monocytes (%) (Auto) 5.3H, Eosinophils (%) (Auto) 1.2, Basophils (%) (Auto) 0.3, Neutrophils # (Auto) 10.3H, Lymphocytes # (Auto) 0.5L, Monocytes # (Auto) 0.6, Eosinophils # (Auto) 0.1, Basophils # (Auto) 0.0, Nucleated Red Blood Cells % (auto) 0.0, Anion Gap 6L, Glomerular Filtration Rate > 60.0, Blood Urea Nitrogen 14, Creatinine 1.03, Sodium Level 140, Potassium Level 3.3L, Chloride Level 99, Carbon Dioxide Level 35H, Calcium Level 9.0, Vancomycin Level Trough 16.1 CBC/BMP Laboratory Tests 12/26/18 03:47 Red Blood Count 2.89 L, Mean Corpuscular Volume 97.2 H, Mean Corpuscular Hemoglobin 30.4, Mean Corpuscular Hemoglobin Concent 31.3 L, Red Cell Distribution Width 17.2 H, Neutrophils (%) (Auto) 87.9 H, Lymphocytes (%) (Auto) 4.6 L, Monocytes (%) (Auto) 5.3 H, Eosinophils (%) (Auto) 1.2, Basophils (%) (Auto) 0.3, Neutrophils # (Auto) 10.3 H, Lymphocytes # (Auto) 0.5 L, Monocytes # (Auto) 0.6, Eosinophils # (Auto) 0.1, Basophils # (Auto) 0.0, Calcium Level 9.0 Microbiology Microbiology 12/16/18 Blood Culture - Final, Complete NO GROWTH AFTER 5 DAYS 12/16/18 Blood Culture - Final, Complete NO GROWTH AFTER 5 DAYS 12/23/18 Acid Fast Stain, Received Pending 12/23/18 Mycobacterial Culture, Received Pending 12/23/18 Fungal Smear, Received Pending 12/23/18 Fungal Culture, Received Pending 12/23/18 Gram Stain - Final, Complete 12/23/18 Anaerobic Culture - Final, Complete 12/23/18 Body Fluid Culture - Preliminary, Resulted 12/24/18 MRSA Screen - Final, Complete 12/16/18 Respiratory Virus Panel (PCR) ([facility]) - Final, Complete 12/16/18 Gram Stain - Final, Complete 12/16/18 Sputum Culture - Final, Complete Streptococcus Pneumoniae Klebsiella Pneumoniae Staphylococcus Aureus Yeast Like Organism ARLETTE VILLANUEVA MD Dec 26, 2018 09:08
[2018-12-26] MEDS: AMIODARONE 200 MG TAB (PACERONE) PEG SCH ×2 (09:51→21:18)
[2018-12-26] MEDS: ASPIRIN 81 MG CHEW TABLET PEG SCH (09:51)
[2018-12-26] MEDS: MULTIVITAMINS/MINERALS THERAP 1 TAB PO SCH (09:51)
[2018-12-26] MEDS: PANTOPRAZOLE 40MG INJ (PROTONIX) (C9113) IV SCH (09:52)
[2018-12-26] MEDS: KCL 10MEQ/100ML SWI (KRUN) 10 MEQ in APPROPRIATE DILUENT 1 EA IV SCH ×3 (09:52→12:29)
[2018-12-26 12:00] VITALS: BP 112/72
[2018-12-26 16:00] VITALS: BP 118/69
[2018-12-26] MEDS: SCOPOLAMINE 1MG TRANSDERMAL PATCH TOP SCH (17:13)
[2018-12-26 20:00] VITALS: BP 122/74
[2018-12-26] MEDS: MIRALAX *UNIT DOSE* 17GM PACKET PEG SCH (20:15)
[2018-12-27] VITALS (7 sets, daily range): BP systolic 129–140; BP diastolic 71–80
[2018-12-27] MEDS: PIPERACILLIN/TAZOBACTAM SOD 3.375 GM in D5W MINI-BAG PLUS 50 ML IV SCH ×4 (00:09→18:50)
[2018-12-27] MEDS: MORPHINE 4 MG/ML 1ML VIAL/SYRINGE (J2270) IV PRN (00:58)
[2018-12-27] MEDS: METOCLOPRAMIDE INJ 10MG/2ML VIAL (J2765) IV SCH ×4 (04:57→21:16)
[2018-12-27] MEDS: VANCOMYCIN HCL 1,000 MG, VIAL MATE ADAPTER 1 EACH in D5W 250 ML IV SCH (04:57)
[2018-12-27] MEDS: LEVOTHYROXINE 25MCG TABLET (0.025MG) PEG SCH (04:57)
[2018-12-27] MEDS: SLF 3 ML SYR IV SCH ×3 (04:57→21:17)
[2018-12-27] MEDS: ACETAMINOPHEN 325 MG/10.15 ML UDC GT PRN ×3 (04:58→21:36)
[2018-12-27 05:30] LABS: HEMATOCRIT 27.9 % (42.0-52.0); HEMOGLOBIN 8.7 g/dl (13.5-17.5); MEAN CORPUSCULAR HEMOGLOBIN 30.6 pg (27.0-33.0); MEAN CORPUSCULAR HGB CONC 31.2 g/dl (32.0-36.5); MEAN CORPUSCULAR VOLUME 98.2 fl (80.0-96.0); PLATELET COUNT, AUTOMATED 208 10^3/uL (150-450); RED BLOOD COUNT 2.84 10^6/uL (4.30-6.10)
[2018-12-27 05:44] LABS: BLOOD UREA NITROGEN 11 MG/DL (7-18); CALCIUM LEVEL 8.4 MG/DL (8.8-10.2); CARBON DIOXIDE LEVEL 33 MEQ/L (21-32); CHLORIDE LEVEL 102 MEQ/L (98-107); CREATININE FOR GFR 1.01 MG/DL (0.70-1.30); GLOMERULAR FILTRATION RATE > 60.0 (>49); GLUCOSE, FASTING 82 MG/DL (70-100); POTASSIUM SERUM 3.9 MEQ/L (3.5-5.1); SODIUM LEVEL 140 MEQ/L (136-145)
[2018-12-27] MEDS: ASPIRIN 81 MG CHEW TABLET PEG SCH (08:55)
[2018-12-27] MEDS: AMIODARONE 200 MG TAB (PACERONE) PEG SCH ×2 (08:56→21:16)
[2018-12-27] MEDS: MULTIVITAMINS/MINERALS THERAP 1 TAB PO SCH (08:56)
[2018-12-27] MEDS: PANTOPRAZOLE 40MG INJ (PROTONIX) (C9113) IV SCH (08:56)
--- NOTE | 2018-12-27 16:32 | IPNPDOC ---
Date Seen The patient was seen on 12/27/18. Progress Note SUBJECTIVE: Overall prognosis is poor due to progressive disease. However, per my conversation with the patient and his , they agree with treatment for infection, pleural effusion even if chest tube, talc pleurodesis, and pleurex catheter are required. He is improving on IV zosyn, vanco discontinued since MRSA is negative. Repeat thoracentesis and cytology to be sent. previous thoracentesis showed malignant cells. Pt requesting to eat, but aspiration risk and blocked esophageal stent with tumor cells. At this time, he is clinically unstable to proceed with esophageal stent placement due to ongoing healthcare associated /aspiration pneumonia with hypoxia, s/p afib w rvr, bilateral malignant effusions s/p thoracentesis. still c/o sob but improved since thoracentesis. afebrile and decreasing white count. no abd pain, nausea, or vomiting. Pt refused tube feedings,and insisted on bolus tid ensure which he usuallyuses at home, which has been resumed . no other issues on telemetry. no other overnight issues per RN. PHYSICAL EXAM: VITAL SIGNS:As below GENERAL: Lying down comfortably in bed in no acute distress. answering questions appropriately. no use of accessory respiratory muscles. HEAD: Normocephalic, atraumatic. NECK: Supple. No jugular venous distention (JVD). LUNGS: diminished. bibasilar crackles S1, S2 audible. No murmurs appreciated. ABDOMEN: Soft. Positive bowel sounds. feeding tube intact no erythema or tenderness Extremities: (+) edema SKIN: Intact. NEUROLOGIC: Patient awake, alert, oriented times three. Labs and Radiology: reviewed Assessment and Plan: This is a 68-year-old male with a past medical history of stage IV esophageal carcinoma, on second line chemotherapy was supposed to get cycle 3 today, radiation in sepOct 2018 , status post stent placement, hypothyroidism, chronic kidney disease (CKD) III, atrial fibrillation who presents to the emergency room from Dr. Diana Yi' office due to dysphagia. According to the patient, recently he has been having difficulty swallowing liquids but has been okay with solids. Patient also has apparently lost approximately 12 pounds in the last month. Dr. Wilson did the last esophagogastroduodenoscopy (EGD) in September 2018. Patient also complained of general malaise and a chronic cough and has not been using his gastrostomy (G) tube much with his Ensure that he normally takes, because he had been trying to have his intake in oral form, so he will be admitted for further management. Health-care associated pneumonia/ Aspiration pneumonia 12/16/18 sputum cx: klebsiella & strep pneumonia. previously on levaquin and ceftriaxone prior to aspiration due to abd pain and emesis. on broad spectrum abx vanco and zosyn with clinical improvement, less respiratory distress, improved white count, and afebrile. with episode of emesis/Abdominal pain, resolved with good bowel sounds. no residual on tube feeds. tube feeds temporarily held but resumed with ensure tid abd film 12/23/18 : nonspecific bowel gas pattern. on zofran and reglan. Bilateral pleural effusions cytology (+) malignant pleural effusion, ECHO was wnl from 12/20/18. CT CHEST: LARGE BILATERAL PLEURAL EFFUSIONS. RML INFILTRATE INTERVAL CHANGE. After an extensive discussion with the patient and his regarding his overall poor prognosis and life expectancy of <6months, due to progressive and aggressive tumor with encroachment on the esophageal stent with complete occlusion, and NEW pulmonary metastases despite 2nd line chemotherapy regimen, with NEW ENLARGING BILATERAL PLEURAL EFFUSIONS within days of admission, Patient and his have requested to be DNR/DNI. In case of natural with no pulse and no spontaneous breathing, the patient does NOT WISH CHEST COMPRESSIONS, ELECTRICAL CARDIOVERSION, OR INTUBATION. thoracentesis and trial of diuresis if blood pressure permits. sent pleural fluid analysis and cytology. If recurs, may need chest tube, pleurex catheter placement, and thoracic surgery consultation versus HOSPICE CARE. Dysphagia due to esophageal mass and stricture above the esophageal stent with complete occlusion of the esophagus. there is also paraesophageal mass in the mediastinum. will keep NPO.consulted dr Katie GALDAMEZ who recommends esophageal stent and asked for pulmonary clearance and prognosis from oncology. Per Dr. Burkett, pulmonary cannot give clearance as the patient does not have a simple treated copd or asthma that can be treated with bronchodilators. 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 If the patient has an ability to receive fluid and nutrition by any other means aside from po with an esophageal stent, it is prudent to use that alternative way of nutrition. Pulmonary can do spirometry testing, and will help with intubation and management of ventilation should this occur. use only PEG tube for continuous feeding and hydration. Per Dr. Yi, oncologist,on 12/21/18, patient has already failed first line therapy and has recently received 2nd line treatment with progression of tumor and new lung mets. It would be reasonable to discuss HOSPICE CARE. A new esophageal stent will NOT TREAT OR CURE the cancer, AND WILL NOT PROLONG HIS LIFE. It would only be for QUALITY OF LIFE, to be able to taste and enjoy food. LIFE EXPECTANCY is <6months. 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 HER2 positive, currently on Ramucirumab/Paclitaxel begun October 2018 as second-line treatment. Originalmetastatic diagnosis December 2017 with adenocarcinoma on esophageal nodulebiopsy, HER2 positive. Multiple lung nodules, right lung b iopsy confirmingmoderate to poorly differentiated adenocarcinoma consistent with esophagealprimary. Status post cisplatin/5-FU/traztuzumab treatment December 2017 withresponse demonstrated in May, completed total six cycles May 2018 and continuedon single-agent trastuzumab until August 2018. However, restaging in lateJuly 2018 showed disease progression in lung metastases. He receivedradiation to the esophagus September to October 2018 and startedramucirumab/paclitaxel in October. consulted dr Katie GALDAMEZ who recommends esophageal stent and asked for pulmonary clearance and prognosis from oncology.Per Dr. Burkett, pulmonary cannot give clearance as the patient does not have a simple treated copd or asthma that can be treated with bronchodilators. 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 If the patient has an ability to receive fluid and nutrition by any other means aside from po with an esophageal stent, it is prudent to use that alternative way of nutrition. Pulmonary can do spirometry testing, and will help with intubation and management of ventilation should this occur. use only PEG tube for continuous feeding and hydration. Per Dr. Yi, oncologist,on 12/21/18, javier mercedes has already failed first line therapy and has recently received 2nd line treatment with progression of tumor and new lung mets. It would be reasonable to discuss HOSPICE CARE. A new esophageal stent will NOT TREAT OR CURE the cancer, AND WILL NOT PROLONG HIS LIFE. It would only be for QUALITY OF LIFE, to be able to taste and enjoy food. LIFE EXPECTANCY is <6months. poor prognosis. Malnutrition / Cancer Cachexia.PEG tube with ensure tid. pt refused previous recommendation from peoplesoft functional analyst. will re-consult on Thursday. consulted dr Katie GALDAMEZ who recommends esophageal stent and asked for pulmonary clearance and prognosis from oncology.. Per Dr. Burkett, pulmonary cannot give clearance as the patient does not have a simple treated copd or asthma that can be treated with bronchodilators. 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 If the patient has an ability to receive fluid and nutrition by any other means aside from po with an esophageal stent, it is prudent to use that alternative way of nutrition. Pulmonary can do spirometry testing, and will help with intubation and m anagement of ventilation should this occur. use only PEG tube for continuous feeding and hydration. Per Dr. Yi, oncologist,on 12/21/18, patient has already failed first line therapy and has recently received 2nd line treatment with progression of tumor and new lung mets. It would be reasonable to discuss HOSPICE CARE. A new esophageal stent will NOT TREAT OR CURE the cancer, AND WILL NOT PROLONG HIS LIFE. It would only be for QUALITY OF LIFE, to be able to taste and enjoy food. LIFE EXPECTANCY is <6months. Abdominal pain with h/o Afib, ischemia ruled out 12/24/18 with normal lactic acid level and no embolism on CT angio abd /pelvis. Atrial fibrillation continue amiodarone and ASA not on any anticoagulation CKD stage 3 stable. Hypothyroid continue synthroid DVT prophylaxis ordered. CODE STATUS: DO NOT RESUSCITATE DO NOT INTUBATE. Prognosis: poor, appropriate for Hospice, but pt and requesting full treatment. VS, I&O, 24H, Fishbone Vital Signs/I&O Vital Signs Date Time Temp Pulse Resp B/P (MAP) Pulse Ox O2 Delivery O2 Flow Rate FiO2 12/27/18 12:00 98.0 81 18 139/77 (97) 96 3.0 12/27/18 00:00 Nasal Cannula I&O- Last 24 Hours up to 6 AM 12/27/18 06:00 Intake Total 1500 ml Output Total 1500 ml Balance 0 ml Laboratory Data 24H LABS Laboratory Tests 2 12/26/18 17:05: Bedside Glucose (Misc Panel) 111 12/27/18 00:07: Bedside Glucose (Misc Panel) 75L 12/27/18 04:48: Nucleated Red Blood Cells % (auto) 0.0, Anion Gap 5L, Glomerular Filtration Rate > 60.0, Blood Urea Nitrogen 11, Creatinine 1.01, Sodium Level 140, Potassium Level 3.9, Chloride Level 102, Carbon Dioxide Level 33H, Calcium Level 8.4L 12/27/18 12:42: Bedside Glucose (Misc Panel) 79L CBC/BMP Laboratory Tests 12/27/18 04:48 Red Blood Count 2.84 L, Mean Corpuscular Volume 98.2 H, Mean Corpuscular Hemoglobin 30.6, Mean Corpuscular Hemoglobin Concent 31.2 L, Red Cell Distribution Width 17.2 H, Calcium Level 8.4 L Microbiology Microbiology 12/23/18 Acid Fast Stain, Received Pending 12/23/18 Mycobacterial Culture, Received Pending 12/23/18 Fungal Smear, Received Pending 12/23/18 Fungal Culture, Received Pending 12/23/18 Gram Stain - Final, Complete 12/23/18 Anaerobic Culture - Final, Complete 12/23/18 Body Fluid Culture - Final, Complete 12/24/18 MRSA Screen - Final, Complete ARLETTE VILLANUEVA MD Dec 27, 2018 16:32
[2018-12-27] MEDS: MIRALAX *UNIT DOSE* 17GM PACKET PEG SCH (21:16)
[2018-12-28] MEDS: PIPERACILLIN/TAZOBACTAM SOD 3.375 GM in D5W MINI-BAG PLUS 50 ML IV SCH ×4 (00:36→18:07)
[2018-12-28] MEDS: METOCLOPRAMIDE INJ 10MG/2ML VIAL (J2765) IV SCH ×4 (03:56→21:17)
[2018-12-28 04:00] VITALS: BP 141/82
[2018-12-28 05:39] LABS: BASO # 0.1 10^3/uL (0.0-0.2); BASO % 0.7 % (0.0-1.0); EOS # 0.2 10^3/uL (0.0-0.50); EOS % 2.3 % (0.0-3.0); HEMATOCRIT 31.5 % (42.0-52.0); HEMOGLOBIN 9.9 g/dl (13.5-17.5); LYMPH # 0.5 10^3/uL (1.5-4.5); LYMPH % 7.8 % (24.0-44.0); MEAN CORPUSCULAR HEMOGLOBIN 30.2 pg (27.0-33.0); MEAN CORPUSCULAR HGB CONC 31.4 g/dl (32.0-36.5); MONO # 0.5 10^3/uL (0.0-0.8); MONO % 7.9 % (0.0-5.0); NEUTROPHILS # 5.5 10^3/uL (1.8-7.7); NEUTROPHILS % 80.7 % (36.0-66.0); PLATELET COUNT, AUTOMATED 254 10^3/uL (150-450); RED BLOOD COUNT 3.28 10^6/uL (4.30-6.10); WHITE BLOOD COUNT 6.8 10^3/uL (4.0-10.0)
[2018-12-28] MEDS: SLF 3 ML SYR IV SCH ×3 (06:00→21:18)
[2018-12-28 06:08] LABS: BLOOD UREA NITROGEN 10 MG/DL (7-18); CALCIUM LEVEL 8.8 MG/DL (8.8-10.2); CARBON DIOXIDE LEVEL 31 MEQ/L (21-32); CHLORIDE LEVEL 101 MEQ/L (98-107); GLOMERULAR FILTRATION RATE > 60.0 (>49); GLUCOSE, FASTING 85 MG/DL (70-100); NT-PRO BNP 512 PG/ML (<125); POTASSIUM SERUM 3.8 MEQ/L (3.5-5.1); SODIUM LEVEL 139 MEQ/L (136-145); TOTAL PROTEIN 6.3 GM/DL (6.4-8.2)
[2018-12-28] MEDS: LEVOTHYROXINE 25MCG TABLET (0.025MG) PEG SCH (06:10)
[2018-12-28] MEDS: ACETAMINOPHEN 325 MG/10.15 ML UDC GT PRN ×3 (06:14→18:08)
[2018-12-28 08:00] VITALS: BP 123/76
[2018-12-28] MEDS: ASPIRIN 81 MG CHEW TABLET PEG SCH (08:20)
[2018-12-28] MEDS: PANTOPRAZOLE 40MG INJ (PROTONIX) (C9113) IV SCH (08:20)
[2018-12-28] MEDS: AMIODARONE 200 MG TAB (PACERONE) PEG SCH ×2 (08:20→21:17)
[2018-12-28] MEDS: MULTIVITAMINS/MINERALS THERAP 1 TAB PO SCH (08:20)
--- NOTE | 2018-12-28 11:22 | REP ---
Thoracic ultrasound bilateral. History: The patient referred for ultrasound-guided right thoracentesis for pleural effusion. Findings: Scanning preliminary to anticipated thoracentesis shows no evidence of visible pleural fluid on either side. Accordingly, no thoracentesis was performed. Impression: No evidence of pleural effusion seen sonographically. Electronically Signed by Anselmo Wick MD 12/28/2018 07:28 P
[2018-12-28 11:30] VITALS: BP 137/82
[2018-12-28 16:00] VITALS: BP 127/66
--- NOTE | 2018-12-28 16:33 | IPNPDOC ---
Text Note Date of Service The patient was seen on 12/28/18. NOTE Subjective: Patient is a 68-year-old male with a PMHx of Stage IV Esophageal CA (on 2nd line chemotherapy; s/p radiation -10/2018, s/p esophageal stent), A. fib, Hypothyroidism, CKD3, who presented to the ER from Dr. Lucie Yi office because of dysphagia. Patient has noted that he's having difficulty swallowing liquids but is been okay with solids. Over last 1 month he's lost approximately 12 pounds. Patient had an EGD completed in September [address] Wilson. Patient was seen and examined at the bedside. Patient notes that he still expr esses some shortness of breath with cough. Denies any nausea or vomiting. Denies chest pain or palpitations. Denies any diarrhea, constipation, or discomfort with urination. Objective: Vitals (See below) General: Lying in bed, no acute distress, comfortable, AAOx3 HEENT: NC, AT CVS: RRR, +S1S2 Lungs: Fair air entry b/l, -w/r/r Abdomen: Soft, ND, NT Extremities: - Edema, - Calf tenderness Assessment and plan: HCAP / Aspiration pneumonia - Clinically still notes some SOB and mild cough - Sputum culture 12/16: Step pneumonia, Klebsiella Pneumoniae, Staph aureus, Yeast like organisms - MRSA screen 12/24: Negative - CXR 12/25: 1. Increased bibasilar infiltrates, left greater than right since 12/24/2018. 2. Slightly decreased left pleural effusion. 3. Otherwise stable chest. - c/w Zosyn; s/p Vancomycin Bilateral pleural effusions - s/p Left sided thoracocentesis; Exudative fluid and evidence of malignancy found on cytology - Repeat US today of R side: no significant fluid to remove Dysphagia - likely 2/2 Esophageal CA - s/p Stent placement; although has been covered in new cancer - Patient has a poor prognosis - Oncology has indicated life expectancy <6 months with suggested Hospice - Patient has not been given Pulmonary clearance for EGD for new stent; however this would be only done for palliation - c/w Feeding tube Malnutrition / Cancer cachexia - Considering Hospice; however at this time has been made DNR/DNI - Will c/w treatment of acute conditions - Will get PT on board Atrial fibrillation - c/w rate / rhythm control with amiodarone - c/w ASA CKD3 - Cr at baseline Hypothyroid - c/w Levothyroxine DVT prophylaxis - c/w GI prophylaxis - c/w DVT prophylaxis - c/w SCDs Code status: - DNR / DNI Prognosis: - Poor; life expectancy < 6 month Disposition: - 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/Hospice - Will get PT on board VS,Fishbone, I+O VS, Fishbone, I+O Laboratory Tests 12/28/18 05:16 Red Blood Count 3.28 L, Mean Corpuscular Volume 96.0, Mean Corpuscular Hemoglobin 30.2, Mean Corpuscular Hemoglobin Concent 31.4 L, Red Cell Distribution Width 17.1 H, Neutrophils (%) (Auto) 80.7 H, Lymphocytes (%) (Auto) 7.8 L, Monocytes (%) (Auto) 7.9 H, Eosinophils (%) (Auto) 2.3, Basophils (%) (Auto) 0.7, Neutrophils # (Auto) 5.5, Lymphocytes # (Auto) 0.5 L, Monocytes # (Auto) 0.5, Eosinophils # (Auto) 0.2, Basophils # (Auto) 0.1, Calcium Level 8.8 Vital Signs Date Time Temp Pulse Resp B/P (MAP) Pulse Ox O2 Delivery O2 Flow Rate FiO2 12/28/18 12:00 1.0 12/28/18 11:30 97.0 81 20 137/82 (100) 95 12/27/18 00:00 Nasal Cannula I&O- Last 24 Hours up to 6 AM 12/28/18 06:00 Intake Total 1230 ml Output Total 1250 ml Balance -20 ml JOVANY RAMON MD Dec 28, 2018 16:33
[2018-12-28 20:00] VITALS: BP 129/80
[2018-12-28] MEDS: MIRALAX *UNIT DOSE* 17GM PACKET PEG SCH (21:00)
[2018-12-28] MEDS: MORPHINE 4 MG/ML 1ML VIAL/SYRINGE (J2270) IV PRN (21:34)
[2018-12-29] VITALS: BP 136/84
[2018-12-29] MEDS: PIPERACILLIN/TAZOBACTAM SOD 3.375 GM in D5W MINI-BAG PLUS 50 ML IV SCH ×2 (00:25→07:00)
[2018-12-29] MEDS: METOCLOPRAMIDE INJ 10MG/2ML VIAL (J2765) IV SCH ×4 (03:43→21:19)
[2018-12-29] MEDS: MORPHINE 4 MG/ML 1ML VIAL/SYRINGE (J2270) IV PRN ×4 (03:43→21:19)
[2018-12-29 04:00] VITALS: BP 122/69
[2018-12-29 05:58] LABS: BASO # 0.1 10^3/uL (0.0-0.2); BASO % 0.6 % (0.0-1.0); EOS # 0.2 10^3/uL (0.0-0.50); EOS % 2.5 % (0.0-3.0); HEMATOCRIT 30.1 % (42.0-52.0); HEMOGLOBIN 9.7 g/dl (13.5-17.5); LYMPH # 0.6 10^3/uL (1.5-4.5); LYMPH % 7.7 % (24.0-44.0); MEAN CORPUSCULAR HEMOGLOBIN 30.2 pg (27.0-33.0); MEAN CORPUSCULAR HGB CONC 32.2 g/dl (32.0-36.5); MEAN CORPUSCULAR VOLUME 93.8 fl (80.0-96.0); MONO # 0.8 10^3/uL (0.0-0.8); MONO % 9.2 % (0.0-5.0); NEUTROPHILS # 6.5 10^3/uL (1.8-7.7); NEUTROPHILS % 79.3 % (36.0-66.0); PLATELET COUNT, AUTOMATED 286 10^3/uL (150-450); RED BLOOD COUNT 3.21 10^6/uL (4.30-6.10); WHITE BLOOD COUNT 8.3 10^3/uL (4.0-10.0)
[2018-12-29] MEDS: SLF 3 ML SYR IV SCH ×3 (06:00→21:19)
[2018-12-29] MEDS: LEVOTHYROXINE 25MCG TABLET (0.025MG) PEG SCH (06:00)
[2018-12-29 06:16] LABS: BLOOD UREA NITROGEN 12 MG/DL (7-18); CALCIUM LEVEL 8.8 MG/DL (8.8-10.2); CARBON DIOXIDE LEVEL 30 MEQ/L (21-32); CHLORIDE LEVEL 102 MEQ/L (98-107); CREATININE FOR GFR 1.15 MG/DL (0.70-1.30); GLOMERULAR FILTRATION RATE > 60.0 (>49); GLUCOSE, FASTING 85 MG/DL (70-100); POTASSIUM SERUM 3.5 MEQ/L (3.5-5.1); SODIUM LEVEL 139 MEQ/L (136-145)
[2018-12-29 08:00] VITALS: BP 112/69
[2018-12-29] MEDS: MULTIVITAMINS/MINERALS THERAP 1 TAB PO SCH (10:20)
[2018-12-29] MEDS: PANTOPRAZOLE 40MG INJ (PROTONIX) (C9113) IV SCH (10:20)
[2018-12-29] MEDS: AMIODARONE 200 MG TAB (PACERONE) PEG SCH ×2 (10:20→21:19)
[2018-12-29] MEDS: ASPIRIN 81 MG CHEW TABLET PEG SCH (10:21)
--- NOTE | 2018-12-29 11:54 | IPNPDOC ---
Text Note Date of Service The patient was seen on 12/29/18. NOTE Subjective: Patient is a 68-year-old male with a PMHx of Stage IV Esophageal CA (on 2nd line chemotherapy; s/p radiation -10/2018, s/p esophageal stent), A. fib, Hypothyroidism, CKD3, who presented to the ER from Dr. Lucie Yi office because of dysphagia. Patient has noted that he's having difficulty swallowing liquids but is been okay with solids. Over last 1 month he's lost approximately 12 pounds. Patient had an EGD completed in September [address] Wilson. Patient was seen and examined at the bedside. Patient notes that his breathing is doing slightly better. He still notes that he's experiencing a productive cough. He denies chest pain or palpitations. Denies any abdominal pain, constipation, diarrhea or discomfort with urination. Patient notes that his appetite is very poor. He isn't continuing with tube feedings. Again, I re discussed the option of comfort measures and hospice with the patient, however, at this time he is not definitive about any decisions. Current plan of care is to continue with antibiotics; will consider transitioning to oral and continue with physical therapy. Objective: Vitals (See below) General: Lying in bed, no acute distress, comfortable, AAOx3 HEENT: NC, AT CVS: RRR, +S1S2 Lungs: Fair air entry b/l, no evidence of wheezing, rhonchi or rales Abdomen: Soft, nondistended, without tenderness, + PEG Extremities: No evidence of lower extremity edema, - Calf tenderness Assessment and plan: HCAP / Aspiration pneumonia - Clinically still notes some SOB and mild cough - Sputum culture 12/16: Step pneumonia, Klebsiella Pneumoniae, Staph aureus, Yeast like organisms - MRSA screen 12/24: Negative - CXR 12/25: 1. Increased bibasilar infiltrates, left greater than right since 12/24/2018. 2. Slightly decreased left pleural effusion. 3. Otherwise stable chest. - c/w Zosyn (Day #6); s/p Vancomycin Bilateral pleural effusions - s/p Left sided thoracocentesis; Exudative fluid and evidence of malignancy found on cytology - R side pleural effusion: no significant fluid to remove Dysphagia - likely 2/2 Esophageal CA - s/p Stent placement; although has been covered in new cancer - Patient has a poor prognosis - Oncology has indicated life expectancy <6 months with suggested Hospice - Patient has not been given Pulmonary clearance for EGD for new stent; however this would be only done for palliation - c/w Feeding tube Malnutrition / Cancer cachexia - Considering Hospice; however at this time has been made DNR/DNI - c/w treatment of acute conditions - c/w PT; awaiting clearance Atrial fibrillation - c/w rate / rhythm control with amiodarone - c/w ASA CKD3 - Cr at baseline Hypothyroid - c/w Levothyroxine GI prophylaxis - c/w Protonix DVT prophylaxis - c/w SCDs Code status: - DNR / DNI Prognosis: - Poor; life expectancy < 6 month Disposition: - 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 - PT will be working with patient today Kehinde RODARTE, I+O VSKehinde I+O Laboratory Tests 12/29/18 05:20 Red Blood Count 3.21 L, Mean Corpuscular Volume 93.8, Mean Corpuscular Hemoglobin 30.2, Mean Corpuscular Hemoglobin Concent 32.2, Red Cell Distribution Width 17.2 H, Neutrophils (%) (Auto) 79.3 H, Lymphocytes (%) (Auto) 7.7 L, Monocytes (%) (Auto) 9.2 H, Eosinophils (%) (Auto) 2.5, Basophils (%) (Auto) 0.6, Neutrophils # (Auto) 6.5, Lymphocytes # (Auto) 0.6 L, Monocytes # (Auto) 0.8, Eosinophils # (Auto) 0.2, Basophils # (Auto) 0.1, Calcium Level 8.8 Vital Signs Date Time Temp Pulse Resp B/P (MAP) Pulse Ox O2 Delivery O2 Flow Rate FiO2 12/29/18 10:21 20 12/29/18 08:00 98.1 91 112/69 (83) 90 12/29/18 04:00 1.0 12/27/18 00:00 Nasal Cannula I&O- Last 24 Hours up to 6 AM 12/29/18 06:00 Intake Total 800 ml Output Total 800 ml Balance 0 ml JOVANY RAMON MD Dec 29, 2018 11:54
[2018-12-29 12:00] VITALS: BP 123/71
[2018-12-29] MEDS: LevoFLOXacin 500 MG TABLET PEG SCH (14:43)
[2018-12-29 16:00] VITALS: BP 117/77
[2018-12-29] MEDS: SCOPOLAMINE 1MG TRANSDERMAL PATCH TOP SCH (18:45)
[2018-12-29] MEDS: ONDANSETRON 4MG/2ML VIAL (J2405) IV PRN (18:45)
[2018-12-29 20:00] VITALS: BP 120/82
[2018-12-29] MEDS: MIRALAX *UNIT DOSE* 17GM PACKET PEG SCH (21:00)
[2018-12-30] VITALS: BP 93/57
[2018-12-30 00:15] VITALS: BP 104/62
[2018-12-30] MEDS: METOCLOPRAMIDE INJ 10MG/2ML VIAL (J2765) IV SCH ×2 (03:44→10:30)
[2018-12-30] MEDS: MORPHINE 4 MG/ML 1ML VIAL/SYRINGE (J2270) IV PRN ×3 (03:44→19:29)
[2018-12-30 03:52] VITALS: BP 104/68
[2018-12-30 04:36] LABS: BASO # 0.1 10^3/uL (0.0-0.2); BASO % 0.5 % (0.0-1.0); EOS # 0.3 10^3/uL (0.0-0.50); EOS % 1.6 % (0.0-3.0); HEMATOCRIT 33.8 % (42.0-52.0); HEMOGLOBIN 10.6 g/dl (13.5-17.5); LYMPH # 0.9 10^3/uL (1.5-4.5); LYMPH % 5.9 % (24.0-44.0); MEAN CORPUSCULAR HEMOGLOBIN 30.6 pg (27.0-33.0); MEAN CORPUSCULAR HGB CONC 31.4 g/dl (32.0-36.5); MEAN CORPUSCULAR VOLUME 97.7 fl (80.0-96.0); MONO # 1.1 10^3/uL (0.0-0.8); MONO % 6.9 % (0.0-5.0); NEUTROPHILS % 84.5 % (36.0-66.0); RED BLOOD COUNT 3.46 10^6/uL (4.30-6.10); WHITE BLOOD COUNT 15.4 10^3/uL (4.0-10.0)
[2018-12-30] MEDS: SLF 3 ML SYR IV SCH (06:00)
[2018-12-30 06:20] LABS: CREATININE FOR GFR 1.31 MG/DL (0.70-1.30); GLOMERULAR FILTRATION RATE 58.3 (>49); POTASSIUM SERUM 3.8 MEQ/L (3.5-5.1)
[2018-12-30] MEDS: LEVOTHYROXINE 25MCG TABLET (0.025MG) PEG SCH (06:40)
[2018-12-30] MEDS: LevoFLOXacin 500 MG TABLET PEG SCH (06:40)
[2018-12-30 08:00] VITALS: BP 108/65
[2018-12-30] MEDS ORDERED: PIPERACILLIN/TAZOBACTAM SOD 3.375 GM in D5W MINI-BAG PLUS 50 ML IV SCH (08:00)
[2018-12-30] MEDS: ACETAMINOPHEN 325 MG/10.15 ML UDC GT PRN (08:33)
[2018-12-30 09:06] LABS: C REACTIVE PROTEIN QUANTITATIV 4.75 MG/DL (0.00-0.30)
--- NOTE | 2018-12-30 09:21 | REP ---
Clinical: Shortness of breath. Comparison: 12/25/2018. Findings: Mediastinum and cardiac silhouette are within normal limits. [id number]-G-[id number] with tip in the SVC/right atrium. Lung zhu demonstrate diffuse chronic-appearing interstitial changes. Superimposed bibasilar ill-defined opacities are noted along with left lower lobe consolidation and pleural reaction which is mildly improved when compared to prior examination. Impression: Ill-defined bibasilar infiltrates/chronic changes along with left lower lobe opacity and pleural effusion which is slightly improved compared to prior examination. Electronically Signed by Bassem Villatoro MD 12/30/2018 09:12 A
[2018-12-30] MEDS: MULTIVITAMINS/MINERALS THERAP 1 TAB PO SCH (10:29)
[2018-12-30] MEDS: ASPIRIN 81 MG CHEW TABLET PEG SCH (10:29)
[2018-12-30] MEDS: PANTOPRAZOLE 40MG INJ (PROTONIX) (C9113) IV SCH (10:29)
[2018-12-30] MEDS: AMIODARONE 200 MG TAB (PACERONE) PEG SCH ×2 (10:35→20:47)
--- NOTE | 2018-12-30 12:13 | IPNPDOC ---
Text Note Date of Service The patient was seen on 12/30/18. NOTE Subjective: Patient is a 68-year-old male with a PMHx of Stage IV Esophageal CA (on 2nd line chemotherapy; s/p radiation -10/2018, s/p esophageal stent), A. fib, Hypothyroidism, CKD3, who presented to the ER from Dr. Lucie Yi office because of dysphagia. Patient has noted that he's having difficulty swallowing liquids but is been okay with solids. Over last 1 month he's lost approximately 12 pounds. Patient had an EGD completed in September [address] Wilson. Patient was seen and examined at the bedside. At this point patient is requiring more oxygen, had a low-grade temperature. Patient notes that he's having difficulty breathing and is requiring nasal cannula. He still notes a productive cough. He denies any abdominal pain but does report some right lower chest pain. Denies any constipation but is experiencing loose stools. Denies any discomfort with urination. I discussed with the patient and his about considering comfort care, given his poor prognosis and his life expectancy of less than 6 months. . Currently they are agreeable, but they will like to discuss this with the rest of the family. Objective: Vitals (See below) General: Lying in bed, no acute distress, comfortable, AAOx3 HEENT: NC, AT CVS: RRR, +S1S2 Lungs: Fair air entry b/l, no evidence of wheezing, rhonchi or rales Abdomen: Soft, nondistended, without tenderness, + PEG Extremities: No evidence of lower extremity edema, - Calf tenderness Assessment and plan: HCAP / Aspiration pneumonia / Gram negative pneumonia - Clinically still notes some SOB and mild cough; likely has been present since admission - Sputum culture 12/16: Step pneumonia, Klebsiella Pneumoniae, Staph aureus, Yeast like organisms - MRSA screen 12/24: Negative - CXR 12/25: 1. Increased bibasilar infiltrates, left greater than right since 12/24/2018. 2. Slightly decreased left pleural effusion. 3. Otherwise stable chest. - CXR 12/29: Ill-defined bibasilar infiltrates/chronic changes along with left lower lobe opacity and pleural effusion which is slightly improved compared to prior examination. - Will restart Zosyn (Day #7); s/p Vancomycin Bilateral pleural effusions - s/p Left sided thoracocentesis; Exudative fluid and evidence of malignancy found on cytology - R side pleural effusion: no significant fluid to remove Dysphagia - likely 2/2 Esophageal CA - s/p Stent placement; although has been covered in new cancer - Patient has a poor prognosis - Oncology has indicated life expectancy <6 months with suggested Hospice - Patient has not been given Pulmonary clearance for EGD for new stent; however this would be only done for palliation - c/w Feeding tube Malnutrition / Cancer cachexia - Considering Hospice; however at this time has been made DNR/DNI - c/w treatment of acute conditions - c/w PT; awaiting clearance Atrial fibrillation - c/w rate / rhythm control with amiodarone - c/w ASA CKD3 - Cr at baseline Hypothyroid - c/w Levothyroxine GI prophylaxis - c/w Protonix DVT prophylaxis - c/w SCDs Code status: - DNR / DNI Prognosis: - Poor; life expectancy < 6 month Disposition: - 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/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 - patient and are agreeable, but would like to discuss with remainder of family - PT will be working with patient today Kehinde RODARTE, I+O VSKehinde I+O Laboratory Tests 12/30/18 04:29 Red Blood Count 3.46 L, Mean Corpuscular Volume 97.7 H, Mean Corpuscular Hemoglobin 30.6, Mean Corpuscular Hemoglobin Concent 31.4 L, Red Cell Distribution Width 18.1 H, Neutrophils (%) (Auto) 84.5 H, Lymphocytes (%) (Auto) 5.9 L, Monocytes (%) (Auto) 6.9 H, Eosinophils (%) (Auto) 1.6, Basophils (%) (Auto) 0.5, Neutrophils # (Auto) 13.0 H, Lymphocytes # (Auto) 0.9 L, Monocytes # (Auto) 1.1 H, Eosinophils # (Auto) 0.3, Basophils # (Auto) 0.1 12/30/18 05:10 Calcium Level 9.0 Vital Signs Date Time Temp Pulse Resp B/P (MAP) Pulse Ox O2 Delivery O2 Flow Rate FiO2 12/30/18 08:05 95 2.0 12/30/18 08:00 100.8 90 22 108/65 (79) 12/27/18 00:00 Nasal Cannula I&O- Last 24 Hours up to 6 AM 12/30/18 06:00 Intake Total 700 ml Output Total 760 ml Balance -60 ml JOVANY RAMON MD Dec 30, 2018 12:13
[2018-12-30] MEDS ORDERED: LORazepam 2 MG/ML VIAL (J2060) IV PRN (13:30)
[2018-12-30] MEDS ORDERED: SCOPOLAMINE 1MG TRANSDERMAL PATCH TOP PRN (13:30)
--- NOTE | 2018-12-30 14:43 | IPNPDOC ---
Text Note Date of Service The patient was seen on 12/30/18. NOTE Update: Discussed with patient and family about medical terminologist goals. Talked with the family about his poor medical terminologist prognosis given his metastatic esophageal cancer. Failure of first line chemotherapy. Worsening of his current aspiration pneumonia. Patient and family agree that they do not want aggressive measures and have opted for comfort measures only. 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 - Non essential medications have been discontinued - Medications for symptomatic control only have been started. VS,Fishbone, I+O VS, Fishbone, I+O Laboratory Tests 12/30/18 04:29 Red Blood Count 3.46 L, Mean Corpuscular Volume 97.7 H, Mean Corpuscular Hemoglobin 30.6, Mean Corpuscular Hemoglobin Concent 31.4 L, Red Cell Distribution Width 18.1 H, Neutrophils (%) (Auto) 84.5 H, Lymphocytes (%) (Auto) 5.9 L, Monocytes (%) (Auto) 6.9 H, Eosinophils (%) (Auto) 1.6, Basophils (%) (Auto) 0.5, Neutrophils # (Auto) 13.0 H, Lymphocytes # (Auto) 0.9 L, Monocytes # (Auto) 1.1 H, Eosinophils # (Auto) 0.3, Basophils # (Auto) 0.1 12/30/18 05:10 Calcium Level 9.0 Vital Signs Date Time Temp Pulse Resp B/P (MAP) Pulse Ox O2 Delivery O2 Flow Rate FiO2 12/30/18 08:05 95 2.0 12/30/18 08:00 100.8 90 22 108/65 (79) 12/27/18 00:00 Nasal Cannula I&O- Last 24 Hours up to 6 AM 12/30/18 06:00 Intake Total 700 ml Output Total 760 ml Balance -60 ml JOVANY RAMON MD Dec 30, 2018 14:42
[2018-12-31] MEDS: MORPHINE 4 MG/ML 1ML VIAL/SYRINGE (J2270) IV PRN ×5 (00:27→21:09)
[2018-12-31] MEDS: AMIODARONE 200 MG TAB (PACERONE) PEG SCH ×2 (09:00→21:07)
--- NOTE | 2018-12-31 15:43 | IPNPDOC ---
Text Note Date of Service The patient was seen on 12/31/18. NOTE Subjective: Patient is a 68-year-old male with a PMHx of Stage IV Esophageal CA (on 2nd line chemotherapy; s/p radiation -10/2018, s/p esophageal stent), A. fib, Hypothyroidism, CKD3, who presented to the ER from Dr. Lucie Yi office bec ause of dysphagia. Patient has noted that he's having difficulty swallowing liquids but is been okay with solids. Over last 1 month he's lost approximately 12 pounds. Patient had an EGD completed in September [address] Wilson. Discussed with patient and family about fdc goals. Patient and family agree that they do not want aggressive measures and have opted for comfort measures only. MOLST form updated on 12/30/2018. Patient was seen and examined at the bedside. Currently has no new complaints. Denies any problems overnight. 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 / DNR / DNI on 12/30/2018 - Non-essential medications have been discontinued and symptomatic control only has been started - Hospice consult has been placed - Family is looking into Home with Hospice for the patient; PFS is currently wor margaret on setting this up Code status: - DNR / DNI Prognosis: - Poor; life expectancy < 6 month Disposition: - Awaiting home with hospice VS,Kehinde, I+O VS, Kehinde, I+O Vital Signs Date Time Temp Pulse Resp B/P (MAP) Pulse Ox O2 Delivery O2 Flow Rate FiO2 12/31/18 13:15 16 12/30/18 08:05 95 2.0 12/30/18 08:00 100.8 90 108/65 (79) 12/27/18 00:00 Nasal Cannula I&O- Last 24 Hours up to 6 AM 12/31/18 06:00 Intake Total 500 ml Output Total 1500 ml Balance -1000 ml JOVANY RAMON MD Dec 31, 2018 15:42
[2019-01-01] MEDS: MORPHINE 4 MG/ML 1ML VIAL/SYRINGE (J2270) IV PRN ×7 (00:41→22:33)
[2019-01-01] MEDS: ONDANSETRON 4MG/2ML VIAL (J2405) IV PRN (08:33)
[2019-01-01] MEDS: AMIODARONE 200 MG TAB (PACERONE) PEG SCH ×2 (11:48→21:25)
--- NOTE | 2019-01-01 14:51 | IPNPDOC ---
Text Note Date of Service The patient was seen on 01/01/19. NOTE Subjective: Patient is a 68-year-old male with a PMHx of Stage IV Esophageal CA (on 2nd line chemotherapy; s/p radiation -10/2018, s/p esophageal stent), A. fib, Hypothyroidism, CKD3, who presented to the ER from Dr. Lucie Yi office bec ause of dysphagia. Patient has noted that he's having difficulty swallowing liquids but is been okay with solids. Over last 1 month he's lost approximately 12 pounds. Patient had an EGD completed in September [address] Wilson. Discussed with patient and family about shelter goals. Patient and family agree that they do not want aggressive measures and have opted for comfort measures only. MOLST form updated on 12/30/2018. Patient was seen and examined at the bedside. Patient was seen sitting up in bed, did not have any concerns or questions. I have advised him that PFS is looking into home with hospice which will likely happen on Thursday. 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 / DNR / DNI on 12/30/2018 - Non-essential medications have been discontinued and symptomatic control only has been started - Hospice consult has been placed - awaiting consultation - PFS is currently working on setting home with hospice; likely will happen on Thursday Code status: - DNR / DNI Prognosis: - Poor; life expectancy < 6 month Disposition: - Home with hospice - likely Thursday VS,Fishbone, I+O VS, Fishbone, I+O Vital Signs Date Time Temp Pulse Resp B/P (MAP) Pulse Ox O2 Delivery O2 Flow Rate FiO2 01/01/19 11:59 18 12/30/18 08:05 95 2.0 12/30/18 08:00 100.8 90 108/65 (79) 12/27/18 00:00 Nasal Cannula I&O- Last 24 Hours up to 6 AM 01/01/19 06:00 Intake Total 600 ml Output Total 250 ml Balance 350 ml JOVANY RAMON MD Jan 01, 2019 14:51
[2019-01-02] MEDS: MORPHINE 4 MG/ML 1ML VIAL/SYRINGE (J2270) IV PRN ×6 (02:25→22:00)
[2019-01-02] MEDS: AMIODARONE 200 MG TAB (PACERONE) PEG SCH ×2 (10:04→22:00)
--- NOTE | 2019-01-02 11:54 | IPNPDOC ---
Text Note Date of Service The patient was seen on 01/02/19. NOTE Subjective: Patient is a 68-year-old male with a PMHx of Stage IV Esophageal CA (on 2nd line chemotherapy; s/p radiation -10/2018, s/p esophageal stent), A. fib, Hypothyroidism, CKD3, who presented to the ER from Dr. Lucie Yi office bec ause of dysphagia. Patient has noted that he's having difficulty swallowing liquids but is been okay with solids. Over last 1 month he's lost approximately 12 pounds. Patient had an EGD completed in September [address] Wilson. Discussed with patient and family about long-term goals. Patient and family agree that they do not want aggressive measures and have opted for comfort measures only. MOLST form updated on 12/30/2018. Patient was seen and examined at the bedside. Currently patient has no new complaints, is able to tolerate his and ensure orally. He's asking specifically for certain flavors. Denies any other significant complaints. I have advised him that likely tomorrow we will be able to transition to home with hospice. 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 / DNR / DNI on 12/30/2018 - Non-essential medications have been discontinued and symptomatic control only has been started - Hospice consult has been placed - awaiting consultation - Anticipate home with hospice tomorrow Code status: - DNR / DNI Prognosis: - Poor; life expectancy < 6 month Disposition: - Home with hospice; anticipated for tomorrow VS,Fishbone, I+O VS, Fishbone, I+O Vital Signs Date Time Temp Pulse Resp B/P (MAP) Pulse Ox O2 Delivery O2 Flow Rate FiO2 01/02/19 10:15 18 12/30/18 08:05 95 2.0 12/30/18 08:00 100.8 90 108/65 (79) 12/27/18 00:00 Nasal Cannula I&O- Last 24 Hours up to 6 AM 3/3/19 05:59 Intake Total 360 ml Output Total 550 ml Balance -190 ml JOVANY RAMON MD Jan 02, 2019 11:54
[2019-01-03] MEDS: MORPHINE 4 MG/ML 1ML VIAL/SYRINGE (J2270) IV PRN ×3 (02:21→09:33)
[2019-01-03] MEDS: AMIODARONE 200 MG TAB (PACERONE) PEG SCH ×2 (08:23→21:11)
[2019-01-03] MEDS: COLCHICINE 0.6 MG TAB PO SCH (09:32)
[2019-01-03] MEDS: MORPHINE 10MG/0.5ML ORAL CONCENTRATE SOLUTION U/D SL PRN ×3 (13:20→23:10)
--- NOTE | 2019-01-03 17:03 | IPNPDOC ---
Text Note Date of Service The patient was seen on 01/03/19. NOTE Subjective: Patient is a 68-year-old male with a PMHx of Stage IV Esophageal CA (on 2nd line chemotherapy; s/p radiation -10/2018, s/p esophageal stent), A. fib, Hypothyroidism, CKD3, who presented to the ER from Dr. Lucie Yi office bec ause of dysphagia. Patient has noted that he's having difficulty swallowing liquids but is been okay with solids. Over last 1 month he's lost approximately 12 pounds. Patient had an EGD completed in September [address] Wilson. Discussed with patient and family about long-term goals. Patient and family agree that they do not want aggressive measures and have opted for comfort measures only. MOLST form updated on 12/30/2018. Patient was seen and examined at the bedside. Currently patient has not com plaints. Will be transition to hospice at home tomorrow once he is able to tolerate oral pain control medications. 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 / DNR / DNI on 12/30/2018 - Non-essential medications have been discontinued and symptomatic control only has been started - Hospice consult; medications have been adjusted based on the recommendations - Projected date of discharge is 01/04/2019 Code status: - DNR / DNI Prognosis: - Poor; life expectancy < 6 month VS,Kehinde, I+O VS, Kehinde, I+O Vital Signs Date Time Temp Pulse Resp B/P (MAP) Pulse Ox O2 Delivery O2 Flow Rate FiO2 01/03/19 13:50 18 12/30/18 08:05 95 2.0 12/30/18 08:00 100.8 90 108/65 (79) I&O- Last 24 Hours up to 6 AM 01/03/19 05:59 Intake Total 230 ml Output Total 650 ml Balance -420 ml JOVANY RAMON MD Jan 03, 2019 17:03
[2019-01-04] MEDS: MORPHINE 10MG/0.5ML ORAL CONCENTRATE SOLUTION U/D SL PRN ×2 (03:44→10:22)
[2019-01-04] MEDS ORDERED: MORP20SO3 PO (08:49)
[2019-01-04] MEDS ORDERED: LORA0.5T11 PO (08:49)
[2019-01-04] MEDS ORDERED: COLC1TAB13 PO (08:49)
[2019-01-04] MEDS ORDERED: HYOS125TA PO (08:49)
[2019-01-04] MEDS: AMIODARONE 200 MG TAB (PACERONE) PEG SCH (10:20)
[2019-01-04] MEDS: COLCHICINE 0.6 MG TAB PO SCH (10:20)
--- NOTE | 2019-01-04 13:19 | DS.PDOC ---
Discharge Summary General Date of Admission Dec 20, 2018 at 10:32 Date of Discharge 01/04/2019 Discharge Summary PROCEDURES PERFORMED DURING STAY: [None]. ADMITTING DIAGNOSES / DISCHARGE DIAGNOSES: HCAP / Aspiration pneumonia / Gram negative pneumonia Bilateral pleural effusions Dysphagia - likely 2/2 Esophageal CA Malnutrition / Cancer cachexia Atrial fibrillation CKD3 Hypothyroid GI prophylaxis DVT prophylaxis COMPLICATIONS/CHIEF COMPLAINT: Difficulty with swallowing HISTORY OF PRESENT ILLNESS / HOSPITAL COURSE: Patient is a 68-year-old male with a PMHx of Stage IV Esophageal CA (on 2nd line chemotherapy; s/p radiation -10/2018, s/p esophageal stent), A. fib, Hypothyroidism, CKD3, who presented to the ER from Dr. Lucie Yi office because of dysphagia. Patient has noted that he's having difficulty swallowing liquids but is been okay with solids. Over last 1 month he's lost approximately 12 pounds. Patient had an EGD completed in September [address] Wilson. There are hospital course patient was treated for an aspiration pneumonia as well as potentially getting another stent placement for his esophageal cancer. However, patient could not receive pulmonary clearance for that procedure. Discussed with patient and family about [facility] goals. Patient and family agree that they do not want aggressive measures and have opted for comfort measures only. [facility] form updated on 12/30/2018. Patient remained inpatient since that point in order to establish home with hospice. Patient was ultimately accepted by home with hospice on 01/04/2019 and patient was transitioned home with their follow-up. DISCHARGE MEDICATIONS: Please see below. ALLERGIES: Please see below. PHYSICAL EXAMINATION ON DISCHARGE: Vitals (See below) General: Lying in bed, no acute distress, comfortable, AAOx3 Full evaluation not completed LABORATORY DATA: Please see below. PROGNOSIS: Poor / Guarded ACTIVITY: [As tolerated]. DISCHARGE PLAN: Home with Hospice and follow up with PCP as needed Return to ER if your pain remains uncontrolled DISPOSITION: Hospice Home. DISCHARGE CONDITION: [Stable]. TIME SPENT ON DISCHARGE: Greater than [25] minutes. Vital Signs/I&Os Vital Signs Date Time Temp Pulse Resp B/P (MAP) Pulse Ox O2 Delivery O2 Flow Rate FiO2 01/04/19 10:52 18 12/30/18 08:05 95 2.0 12/30/18 08:00 100.8 90 108/65 (79) I&O- Last 24 Hours up to 6 AM 01/04/19 06:00 Intake Total 20 ml Output Total 400 ml Balance -380 ml Discharge Medications Scheduled Amiodarone HCl (Amiodarone HCl) 200 Mg Tab, 200 MG PO DAILY, (Reported) STATES THAT THIS MEDICATION WAS INCREASED TO QID BY DR VOGT - CALLED OFFICE TO VERIFY AND THEY DON'T HAVE RECORD OF THIS CHANGE. LAST OFFICE VISIT WAS IN SEPTEMBER Colchicine (Colchicine) 0.6 Mg Tab, 0.3 MG PO DAILY Polyethylene Glycol (Miralax) 1 Pow Pow, 17 GRAM PO QHS, (Reported) Scheduled PRN Cyclobenzaprine HCl (Cyclobenzaprine HCl) 10 Mg Tab, 10 MG PO DAILY PRN for MUSCLE SPASMS, (Reported) Hyoscyamine Sulfate (Hyoscyamine Sulfate) 0.125 Mg Sub, 0.125 MG PO Q4HP PRN for TERMINAL SECRETIONS Use sublingually if unable to swallow Ibuprofen (Ibuprofen) 200 Mg Tab, 400 MG PO QID PRN for PAIN, (Reported) Lorazepam (Lorazepam) 0.5 Mg Tab, 0.5 MG PO Q4HP PRN for ANXIETY/AGITATION Use sublingually if unable to swallow Morphine Sulfate (Morphine Sulfate) 100 Mg/5 Ml Chey, 0.25-1 ML PO Q2H PRN for PAIN OR DYSPNEA Use sublingually if unable to swallow Ondansetron HCl (Ondansetron HCl) 4 Mg Tab, 4 MG PO Q6H PRN for NAUSEA, (Reported) Allergies Coded Allergies: Banana (Verified Allergy, Intermediate, hives, 12/07/18) JOVANY RAMON MD Jan 04, 2019 13:19
== END 2019-01-04 12:30 | disposition hospice, home (50) | DRG 178 ==
LOC: M ED 10:01 → M ED INP 15:03 → M MS4PR 20:35 → OBSVTOIN 12-20 10:32 → M PCU 12-22 17:49 → M MS5PR 12-30 15:46
PROVIDERS: ADMIT Internal Medicine; ATTEND Internal Medicine
PROC: 0W9B3ZX Drainage of Left Pleural Cavity, Percutaneous Approach, Diagnostic (ICD-10-PCS; principal; 2018-12-23)
DX: J69.0 Pneumonitis due to inhalation of food and vomit (principal); C15.9 Malignant neoplasm of esophagus, unspecified; E46 Unspecified protein-calorie malnutrition; C78.01 Secondary malignant neoplasm of right lung; C78.02 Secondary malignant neoplasm of left lung; J91.0 Malignant pleural effusion; Z51.5 Encounter for palliative care; Z66 Do not resuscitate; R13.10 Dysphagia, unspecified; E03.9 Hypothyroidism, unspecified; N18.3 Chronic kidney disease, stage 3 (moderate); K21.9 Gastro-esophageal reflux disease without esophagitis; Z79.82 Long term (current) use of aspirin; Z79.899 Other long term (current) drug therapy; J20.9 Acute bronchitis, unspecified; Z93.1 Gastrostomy status; Z92.3 Personal history of irradiation